=== PATIENT | female | born 1945 | race Caucasian/White ===

== ENCOUNTER 2020-04-06 12:51 | Outpatient (CLI) | payer MEDICARE, BC, SELFPAY ==
[2020-04-06 13:15] VITALS: PULSE 76; O2SAT 87
[2020-04-06 13:17] VITALS: O2SAT 93
[2020-04-06 13:20] VITALS: PULSE 116; O2SAT 85
[2020-04-06 13:22] VITALS: PULSE 110; O2SAT 87
[2020-04-06 13:26] VITALS: PULSE 122; O2SAT 90
[2020-04-06 13:35] VITALS: PULSE 76; O2SAT 93
--- NOTE | 2020-04-06 14:47 | HOMEO2EVAL ---
Home Oxygen Evaluation RC: Home Oxygen (O2) Evaluation Start: 04/06/20 14:42 Freq: Status: Active Protocol: RPE Activity Type Activity Date Activity User E-Sign Co-Sign Detail Recorded Client Recorded Date Recorded By Document 04/06/20 13:15 CASI [email or web address] 04/06/20 14:47 CASI Document 04/06/20 13:17 CASI [email or web address] 04/06/20 14:47 CASI Document 04/06/20 13:20 CASI [email or web address] 04/06/20 14:47 CASI Document 04/06/20 13:22 CASI [email or web address] 04/06/20 14:47 CASI Document 04/06/20 13:26 CASI [email or web address] 04/06/20 14:47 CASI Document 04/06/20 13:35 [email or web address] [email or web address] 04/06/20 14:47 CASI 04/06/20 04/06/20 04/06/20 13:15 13:17 13:20 Home O2 Evaluation Test Phase Resting Resting Exercise Oxygen Delivery Room Air Nasal Cannula Nasal Cannula Oxygen Flow Rate (L/min) 1 1 Pulse Oximetry (90-100 %) 87 L 93 85 L Pulse Rate (60-100 beats/min) 76 116 H Ambulation Distance (feet) Home Oxygen Evaluation Comments Treatment Charges O2 Evaluation 04/06/20 04/06/20 04/06/20 13:22 13:26 13:35 Home O2 Evaluation Test Phase Exercise Exercise Resting Oxygen Delivery Nasal Cannula Nasal Cannula Nasal Cannula Oxygen Flow Rate (L/min) 2 3 1 Pulse Oximetry (90-100 %) 87 L 90 93 Pulse Rate (60-100 beats/min) 110 H 122 H 76 Ambulation Distance (feet) 550 Home Oxygen Evaluation Comments PT REQUIRES 1 L AT REST AND 3 L WITH EXERTION . PT WALKED FOR 6 MINUTES. Treatment Charges
--- NOTE | 2020-04-15 15:42 | WPDPFTINT ---
PFT Interpretation PFT Interpretation: DOS: 04/06/2020 REQUESTING: Elsie Powell NP REASON FOR TESTING: COPD PULMONARY FUNCTION TESTS Spirometry: FEV1 is 46%, severely decreased, 0.88 L. FVC is decreased 75% predicted. The FEV1% is decreased. DMW68-02% is extremely decreased at 14% predicted. There is a 17% increase in FEV1 which is less than 200 ml. By ATS standards this is not considered to be statistically significant. There is a 53% increase in OTM56-63% which is greater than 200 ml. Lung volumes: total lung capacity 122% mild hyperinflation. RV 184% severe air trapping. increased airway resistance. Diffusion: DLCO 42% moderately decreased Flow volume loop: Scooping of the expiratory limb consistent with obstruction IMPRESSION: Extremely severe obstructive ventilatory impairment which is even worse in the small airways, mild hyperinflation, severe air trapping with s moderately severe diffusion impairment. This pattern suggests COPD asthma overlap. There is a significant response to bronchodilator in the small airways. Malika Thomas MD
== END 2020-04-06 12:52 | disposition home or self-care (01) ==
LOC: ANHPFT 12:54
PROVIDERS: PCP Internal Medicine; Visit Provider Nurse Practitioner
DX: J44.9 Chronic obstructive pulmonary disease, unspecified (principal)
CPT/HCPCS: 94060; 94618; 94726; 94729

== ENCOUNTER 2022-03-15 11:42 | Outpatient (CLI) | payer MEDICARE, BC, SELFPAY ==
--- NOTE | ~2022-03-15 | PE_ITS ---
EXAMINATION: PET skull to mid thigh DATE: 03/15/2022 13:56 INDICATION: Solitary pulmonary nodule TECHNIQUE: Blood glucose level was 94 mg/dL. 10.832 mCi of 18-fluorodeoxyglucose (18-FDG) was adminis tered i.v. Low dose computed tomography (CT) images were acquired from the base of the brain to the p roximal thighs for attenuation correction and anatomic localization. Positron emission tomography (PE T) images were acquired in the same distribution beginning 65 minutes after injection. The dose-lengt h product (DLP) was 1050.42 mGy-cm. COMPARISON: None FINDINGS: Head/neck: No abnormal FDG uptake is identified. Chest: No abnormal FDG uptake is identified. There is mild emphysema. There is a 5 mm nodule in the r ight lung apex without associated FDG uptake which could be due to small size. There is mild atelecta sis of the lingula. No pleural effusion or pneumothorax. No pathologically enlarged thoracic lymph no paul are identified. The heart size is normal. Calcified coronary artery atherosclerosis is noted. Isai cified pulmonary nodules and calcified bilateral hilar and mediastinal lymph nodes are consistent wit h old granulomatous disease. Abdomen/pelvis/proximal thighs: No abnormal FDG uptake is identified. Physiologic FDG activity is pre sent in the bowel and urinary tract. Stones are present in the gallbladder which is mildly distended. The liver, spleen, pancreas, and adrenal glands are normal. The kidneys are unremarkable. No patholo gically enlarged abdominal or pelvic lymph nodes are identified. There is no free intraperitoneal gas or evidence of bowel obstruction. There is calcified atherosclerosis of the aorta and many of the ot her arteries. Colonic diverticulosis is present without evidence of diverticulitis. Musculoskeletal: No abnormal FDG uptake is identified. IMPRESSION: 1. 5 mm nodule of the right lung apex without associated FDG uptake which could possibly be due to sm all size. No FDG avid pulmonary nodules identified. 2. Mild emphysema. 3. Cholelithiasis. Reviewed, dictated and finalized at location B. IMPRESSION: 1. 5 mm nodule of the right lung apex without associated FDG uptake which could possibly be due to small size. No FDG avid pulmonary nodules identified. 2. Mild emphysema. 3. Cholelithiasis.
[2022-03-15 12:18] LABS: Glucose Point of Care 94 mg/dl (65-105)
== END 2022-03-15 11:43 | disposition home or self-care (01) ==
PROVIDERS: PCP Internal Medicine; Visit Provider Nurse Practitioner
DX: R91.1 Solitary pulmonary nodule (principal); J43.9 Emphysema, unspecified; K80.20 Calculus of gallbladder without cholecystitis without obstruction
CPT/HCPCS: 78815; A9552

== ENCOUNTER 2023-04-09 09:47 | Emergency (ER) | payer MEDICARE, BC, SELFPAY ==
--- NOTE | ~2023-04-09 | CT_ITS ---
EXAMINATION: CT abdomen pelvis w con INDICATION: Right-sided abdominal pain TECHNIQUE: Computed tomographic images of the abdomen and pelvis were obtained after the administrati on of 100 cc of Omnipaque 350 intravenous contrast. The dose-length product (DLP) was 755.60 mGy-cm. Automated exposure control and iterative reconstruction technique were employed. COMPARISON: None available FINDINGS: There is moderate emphysema of the visualized lung bases. There is mild dependent atelectas is. The heart size is normal. Punctate calcifications in an otherwise normal spleen likely represent healed granulomatous disease. The liver, pancreas, and adrenal glands are normal. A stone is present in the gallbladder which is mildly distended. No pericholecystic inflammatory change is seen. Hypoatt enuating lesions in the kidneys, measuring up to 4 mm on the right, are too small to characterize but likely represent cysts. There is calcified atherosclerosis of the aorta and many of the other arteri es. No pathologically enlarged abdominal or pelvic lymph nodes are identified. There is colonic diver ticulosis. There is inflammation of a diverticulum of the sigmoid colon with surrounding edematous st randing of the perisigmoid fat. No perforation or abscess are identified. No free intraperitoneal gas or evidence of bowel obstruction. There is moderate lumbar spondylosis. IMPRESSION: 1. Uncomplicated sigmoid diverticulitis. 2. Cholelithiasis and mild gallbladder distention without additional findings of cholecystitis. Reviewed, dictated and finalized at location F. IMPRESSION: 1. Uncomplicated sigmoid diverticulitis. 2. Cholelithiasis and mild gallbladder distention without additional findings o f cholecystitis.
[2023-04-09 09:51] VITALS: BP 157/82; PULSE 90; RESP 23; TEMP 37.3; O2SAT 96
[2023-04-09 10:00] VITALS: BP 149/71; PULSE 97; RESP 18; O2SAT 96
--- NOTE | 2023-04-09 10:02 | ED.GENADULT ---
HPI - General Adult General Chief complaint: Abdominal Pain Stated complaint: abd pain Time Seen by Provider: 04/09/23 09:49 Source: patient Mode of arrival: ambulatory Limitations: no limitations History of Present Illness HPI narrative: This is a 78-year-old female who presents to the ED with chief complaint of abdominal pain beginning 2 days ago. Reports pain is in the suprapubic abdomen and radiates bilaterally across. Reports occasional right upper quadrant pain as well. Reports intermittent loose stools but this is baseline for her. Denies obstipation. Denies fevers, chills, chest pain, shortness of breath, cough, nausea, vomiting, problems with urination. Denies GI bleeding symptoms. Reports abdominal surgical history of hysterectomy. Related Data Allergies Allergy/AdvReac Type Severity Reaction Status Date / Time diphenhydramine Allergy Hives Verified 04/09/23 09:51 Penicillins Allergy Hives Verified 04/09/23 09:51 Sulfa (Sulfonamide Allergy Unknown Verified 04/09/23 09:51 Antibiotics) tetanus and diphtheria Allergy Unknown Verified 04/09/23 09:51 toxoids Review of Systems Review of Systems: All systems as dictated in HPI Exam Narrative: GENERAL: Well-appearing, well-nourished, and in no acute distress. HEAD: Normocephalic, atraumatic. EYES: PERRLA and EOMI. ENT: Nares clear, no rhinorrhea or epistaxis. Mucous membranes moist. Oropharynx without tonsillar hypertrophy exudate or other lesions. NECK: Supple. No adenopathy or masses. CHEST: No respiratory distress. Clear to auscultation. No wheezes rales or rhonchi HEART: Regular rate and rhythm. No murmur heard. Normal peripheral pulses. ABDOMEN: Right upper quadrant tenderness to palpation. Tenderness throughout the right lower, suprapubic, left lower quadrant. Soft, nondistended, normal active bowel sounds. Negative peritoneal signs. Negative McBurney's point and equivocal Robles sign. MSK: Normal range of motion. No edema. SKIN: Warm, dry, no rash. NEURO: Alert and oriented x3. No focal deficits. PSYCH: Normal mood and affect. Course Course Emergency Course: Reevaluation 1137: Patient feeling much better. She would like to go home. Vital Signs Vital signs: Vital Signs Temperature 99.2 F 04/09/23 09:51 Pulse Rate 90 10/01/23 09:51 Respiratory Rate 23 H 04/09/23 09:51 Blood Pressure 157/82 H 04/09/23 09:51 Pulse Oximetry 96 04/09/23 09:51 Oxygen Delivery Nasal Cannula 04/09/23 09:51 Oxygen Flow Rate 3 04/09/23 09:51 Temperature 99.2 F 04/09/23 09:51 Pulse Rate 92 04/09/23 14:26 Respiratory Rate 20 04/09/23 14:26 Blood Pressure 142/58 H 04/09/23 14:26 Pulse Oximetry 99 04/09/23 14:26 Oxygen Delivery Nasal Cannula 04/09/23 09:51 Oxygen Flow Rate 3 04/09/23 09:51 Medical Decision Making MDM Narrative Medical decision making narrative: This is a 78-year-old female who presents to the ED with chief complaint of lower abdominal pain beginning 2 days ago. Vitals show slightly elevated temperature at 99.2 but otherwise normal. Exam reveals lower abdominal tenderness, most concentrated in the suprapubic and right lower quadrant. Lab work including CBC, CMP and UA are all unremarkable. CT abdomen pelvis with contrast: 1. Uncomplicated sigmoid diverticulitis. 2. Cholelithiasis and mild gallbladder distention without additional findings of cholecystitis.. She is aware of this seemingly chronic gallbladder distention. She feels much improved with 2 mg of morphine here in the emergency department. She would like to go home. Patient was given antibiotics here in the department. Prescriptions for [place], Cipro, Flagyl for home. Pt will be discharged in stable condition. Strict return precautions given and supportive measures discussed. Pt is understanding and agreeable with plan for discharge and follow-up with PCP. Vital Signs Vital Signs: Vital Signs Temperature 99.2 F
[2023-04-09 10:11] LABS: Basophils Percent Auto 0.1 % (0.2-1.2); Eosinophils Percent Auto 0.3 % (0-4.4); Hematocrit 36.2 % (37.0-47.0); Hemoglobin 11.2 g/dL (12.0-15.0); Immature Granulocyte Absolute 0.05 K/mm3 (0.00-0.031); Immature Granulocyte Percent A 0.5 % (0-0.5); Lymphocytes Absolute Auto 0.95 K/mm3 (0.9-3.2); Lymphocytes Percent Auto 9.9 % (18.3-44.2); Mean Corpuscular HGB Conc 30.9 g/dl (32-36); Mean Corpuscular Hemoglobin 29.9 pg (26-34); Mean Corpuscular Volume 96.8 fl (80-100); Mean Platelet Volume 8.9 fl (7.4-10.4); Monocytes Absolute Auto 0.7 K/mm3 (0.1-0.6); Monocytes Percent Auto 7.2 % (2.6-8.5); Neutrophils Absolute Auto 7.9 K/mm3 (1.3-6.7); Platelet Count Result 192 k/mm3 (150-375); Red Blood Count 3.74 M/mm3 (4.2-5.4); Red Cell Distribution Width 13.2 % (11.5-14.5); White Blood Count 9.6 K/mm3 (4.5-10.0)
[2023-04-09 10:21] LABS: Lactic Acid Reflex 1.2 mmol/L (0.7-2.0)
[2023-04-09 10:22] LABS: Alanine Aminotransferase 18 U/L (6-35); Alkaline Phosphatase 84 U/L (38-126); Anion Gap 6 mmol/L (8-16); Aspartate Amino Transferase 22 U/L (14-36); Bilirubin,Total 0.8 mg/dL (0.2-1.3); Blood Urea Nitrogen 9 mg/dL (7-17); Calcium 8.8 mg/dL (8.4-10.2); Carbon Dioxide 31 mmol/L (22-30); Chloride 97 mmol/L (98-107); Estimated CRCL calculation 63 ml/min; Estimated Glomerular Filt Rate > 60; Glucose 114 mg/dL (65-110); Lipase 48 U/L (23-300); Sodium 134 mmol/L (137-145)
[2023-04-09] MEDS: MORPHINE SULFATE (*CRX) 4 MG/ML INJ IV PUSH (10:23)
[2023-04-09 10:25] LABS: INR 1.2; Prothrombin Time 16.1 Seconds (11.1-14.7)
[2023-04-09 10:26] LABS: Partial Thromboplastin Time 38.9 SECONDS (22.3-36.8)
[2023-04-09 10:30] VITALS: BP 155/58; PULSE 85; RESP 18; O2SAT 95
[2023-04-09 11:13] VITALS: BP 145/56; PULSE 86; RESP 22; O2SAT 99
[2023-04-09 11:14] LABS: Appearance Urine Clear (Clear); Bilirubin Urine Negative (Negative); Blood Urine Negative (Negative); Color Urine Yellow (Yellow); Glucose Urine UA Negative (Negative); Ketones Urine Negative (Negative); Leukocyte Esterase Ur Negative LEU/UL (Negative); Nitrate Urine Negative (Negative); Protein Urine Negative (Negative); Specific Grav Ur 1.009 (1.001-1.035); Urobilinogen Urine 0.2 mg/dL (<2.0)
[2023-04-09 11:19] LABS: Add Urine Microscopic? NO
[2023-04-09 11:55] VITALS: BP 131/65; PULSE 85; RESP 21; O2SAT 99
[2023-04-09] MEDS: metroNIDAZOLE 500 MG/ISO 100ML 500 MG/100 ML BAG 100 MG IVPB (11:55)
[2023-04-09] MEDS: levoFLOXacin 750 MG/D5W 150 ML 750 MG/150 ML BAG 100 MG IVPB (12:57)
[2023-04-09 14:26] VITALS: BP 142/58; PULSE 92; RESP 20; O2SAT 99
== END 2023-04-09 14:28 | disposition home or self-care (01) ==
PROVIDERS: Emergency Provider Physician Assistant
DX: K57.32 Diverticulitis of large intestine without perforation or abscess without bleeding (principal)
CPT/HCPCS: 36415; 74177; 80048; 80076; 81003; 83605; 83690; 85025; 85610; 85730; 96365; 96367; 96375; 99284; J1836; J1956; J2270; Q9967

== ENCOUNTER 2024-06-21 10:23 | Inpatient (IN) | payer MEDICARE, BC, SELFPAY ==
[2024-06-21] VITALS (20 sets, daily range): BP systolic 118–154; BP diastolic 52–96; PULSE 77–104; RESP 16–24; TEMP 36–37; O2SAT 89–100; BMI 36.1
--- NOTE | ~2024-06-21 | US_ITS ---
EXAMINATION: US venous doppler UE DATE: 06/25/2024 21:53 INDICATION: Left upper limb swelling. TECHNIQUE: Grayscale ultrasound images without and with compression and Doppler ultrasound images of the left upper extremity veins were obtained. COMPARISON: None. FINDINGS: The visualized portions of the left internal jugular vein, subclavian vein, axillary vein, brachial v eins, basilic vein, cephalic vein, radial vein, and ulnar vein are patent. IMPRESSION: 1. No deep venous thrombosis. Reviewed, dictated and finalized at location A. CULTURAL AND FORESTRY SUPERVISOR
--- NOTE | ~2024-06-21 | XR_ITS ---
XR chest 1V portable 06/21/2024 10:52 Indication: Dyspnea Procedure: AP portable chest Comparison: No prior studies for comparison. Findings: Heart size normal. Left basilar atelectasis. Calcified granuloma right mid thorax. No focal pneumonia, edema, pleural effusion or pneumothorax. Impression: 1: Subsegmental left basilar atelectasis. Reviewed, dictated and finalized at location B. DCARE ADMINISTRATOR Impression: 1: Subsegmental left basilar atelectasis.
--- NOTE | 2024-06-21 10:29 | ECG_ITS ---
Test Date: 2024-06-21 10:39:48 Measurements Intervals Joaquin Rate: 82 P: 89 CA: 137 QRS: 40 QRSD: 78 T: 47 QT: 377 QTc: 442 Interpretive Statements SINUS RHYTHM No previous ECG available for comparison Electronically Signed On 06-21-2024 18:43:04 [employer]ARMACEUTICAL SCIENTIST by Loida Wilder M.D.
[2024-06-21] MEDS: ALBUTEROL SULFATE NEB 2.5 MG/3 ML INH 15 MG INHALATION (10:40)
[2024-06-21] MEDS: IPRATROPIUM BR 0.02% INH SOLN 0.5 MG/2.5 ML VIAL 1 MG INHALATION (10:41)
[2024-06-21] MEDS: methylPREDNISolone SOD SUCC 125 MG VIAL 80 MG IV PUSH (10:44)
[2024-06-21 10:53] LABS: Basophils Percent Auto 0.5 % (0.2-1.2); Eosinophils Absolute Auto 0.2 K/mm3 (0-0.3); Eosinophils Percent Auto 2.2 % (0-4.4); Hematocrit 35.7 % (37.0-47.0); Hemoglobin 10.7 g/dL (12.0-15.0); Immature Granulocyte Absolute 0.03 K/mm3 (0.00-0.031); Immature Granulocyte Percent A 0.4 % (0-0.5); Lymphocytes Absolute Auto 0.63 K/mm3 (0.9-3.2); Mean Corpuscular Hemoglobin 29.2 pg (26-34); Mean Corpuscular Volume 97.5 fl (80-100); Mean Platelet Volume 9.5 fl (7.4-10.4); Monocytes Absolute Auto 0.4 K/mm3 (0.1-0.6); Monocytes Percent Auto 5.3 % (2.6-8.5); Neutrophils Absolute Auto 6.6 K/mm3 (1.3-6.7); Neutrophils Percent Auto 83.6 % (45.5-73.1); Platelet Count Result 218 k/mm3 (150-375); Red Blood Count 3.66 M/mm3 (4.2-5.4); Red Cell Distribution Width 13.6 % (11.5-14.5); White Blood Count 7.9 K/mm3 (4.5-10.0)
[2024-06-21 11:22] LABS: Alanine Aminotransferase 12 U/L (6-35); Albumin Level 3.6 g/dL (3.5-5.1); Alkaline Phosphatase 86 U/L (38-126); Aspartate Amino Transferase 21 U/L (14-36); Bilirubin,Total 0.5 mg/dL (0.2-1.3); Blood Urea Nitrogen 20 mg/dL (7-17); Calcium 9.5 mg/dL (8.4-10.2); Carbon Dioxide > 40 mmol/L (22-30); Chloride 85 mmol/L (98-107); Estimated CRCL calculation 38 ml/min; Estimated Glomerular Filt Rate 48; Glucose 121 mg/dL (65-110); Potassium 3.7 mmol/L (3.4-5.0); Sodium 135 mmol/L (137-145)
--- NOTE | 2024-06-21 12:39 | P.HP_ITS ---
H&P: HPI History of Present Illness Date/Time: 06/21/24 12:39 Chief Complaint: Weakness, Hypoxia Narrative: 79 y/o F presents here with weakness, back pain, and hypoxia with PMH of COPD, AFib, hypertension, GERD, chronic diarrhea, arthritis, depression. The patient presents here from her PCP office via EMS for further evaluation of multiple medical complaints. The patient presented there for her regular check up. While at appt she reported that she felt short of breath, dizzy and nauseated. Shortness of breath is chronic, has worsened in the last 2-3 days. Has chronic dry cough with no increased sputum production. Denies any associated fever, chills, or body aches. Dizziness started 2-3 days ago as well. Only occurs when she stands up. Dizziness is further described as more of an unsteadiness vs the patient having a spinning sensation or the room spinning. Denies associated focal weakness, focal numbness, changes in speech, vision changes, or headache. Nausea started 2-3 days ago as well. No accompanying vomiting, abdominal pain, dysuria, or urinary frequency. Nausea has largely resolved. Denies any recent abx use in the last 3 months. Patient was directed to the emergency department when she was found to be satting at 80% on 2L NC. Baseline O2 requirement is 2L NC at all times. EMS was called, while being transported to the hospital she received a DuoNeb and her nasal cannula was increased to 4L. She arrived 95% on 2L NC. Patient arrived diminished with audible wheezing per ED provider. Patient has hx of COPD and is a former smoker. Initial VS at presentation: 98.6? F, HR 77, RR 22, 126/60, and 95% on 2L NC. ED workup showed: No leukocytosis, hemoglobin 10.7 (previously 11.2 on 04/09/23), creatinine 1.1 and GFR 48 (previously 0.7 and GFR >60), glucose 121. CXR showed subsegmental left basilar atelectasis. EKG showed sinus rhythm, rate 82. Review of Systems Review of Systems: All systems reviewed & are unremarkable except as noted in HPI and below PMFSH Past Medical History Medical History Depression Arthritis Chronic diarrhea GERD (gastroesophageal reflux disease) Hypertension Atrial fibrillation COPD (chronic obstructive pulmonary disease) Surgical History Surgical History History of hysterectomy History of tonsillectomy Social History Social History Smoking status: Never smoker Alcohol intake: never Substance use: never Do You Feel Safe in your Home?: Yes Lack of Transportation: No Lack of Food: Never True Current Housing: I Have Housing Concerned About Future Housing: No Difficulty Paying Gas/Electric Bills: No Difficulty Paying for Meds: No Currently Unemployed: No Education: Decline to Answer Difficulty w/ Childcare or Family Care: No Spiritual care concerns: No Meds Home Medications and Allergies Home Medications ?Medication ?Instructions ?Recorded ?Confirmed ?Type acetaminophen 500 mg tablet (Pain 1,000 mg PO Q12H 06/21/24 06/21/24 History Reliever Extra Strength (acetaminophen)) albuterol sulfate 2.5 mg/3 mL 2.5 mg inhalation DAILY 06/21/24 06/21/24 History (0.083 %) solution for nebulization apixaban 5 mg tablet (Eliquis) 5 mg PO BID 06/21/24 06/21/24 History atorvastatin 40 mg tablet 40 mg PO DAILY 06/21/24 06/21/24 History budesonide 160 mcg-glycopyr 9 1 inh inhalation DAILY 06/21/24 06/21/24 History mcg-formot 4.8 mcg/actuation HFA inhaler (Breztri Aerosphere) chlorthalidone 25 mg tablet 25 mg PO DAILY 06/21/24 06/21/24 History diltiazem HCl 240 mg 240 mg PO DAILY 06/21/24 06/21/24 History capsule,extended release 24 hr escitalopram oxalate 20 mg tablet 20 mg PO DAILY 06/21/24 06/21/24 History losartan 50 mg tablet 50 mg PO DAILY 06/21/24 06/21/24 History montelukast 10 mg tablet 10 mg PO QPM 06/21/24 06/21/24 History pantoprazole 40 mg tablet,delayed 40 mg PO Q12H 06/21/24 06/21/24 History release Allergies Allergy/AdvReac Type Severity Reaction Status Date / Time diphenhydramine Allergy Hives Verified 04/09/23 09:51 Penicillins Allergy Hives Verified 04/09/23 09:51 Sulfa (Sulfonamide Allergy Unknown Verified 04/09/23 09:51 Antibiotics) tetanus and diphtheria Allergy Unknown Verified 04/09/23 09:51 toxoids Vital Signs Vital Signs - 24 hr 06/21/24 10:22 06/21/24 10:45 06/21/24 10:46 Temperature 98.6 F Pulse Rate 77 77 Respiratory Rate 22 H 20 Blood Pressure 126/60 Pulse Oximetry 95 94 Oxygen Delivery Nasal Cannula Nasal Cannula Oxygen Flow Rate 2 2 06/21/24 11:03 06/21/24 11:04 Temperature Pulse Rate 104 H Respiratory Rate Blood Pressure Pulse Oximetry 94 Oxygen Delivery Nasal Cannula Oxygen Flow Rate 2 Exam Const: General: comfortable and no acute distress Other: , female, nontoxic appearance HENMT: Face/Nose/Sinus: Normal nares present Mouth: Yes moist mucous membra patrick Eyes: General: appearance normal, both eyes and all related structures Sclera: sclerae normal Pupils: Equal, round and reactive pupils present EOM: EOMs intact bilaterally Resp: Other: Patient diminished in all lung wheeler, faint expiratory wheeze. Mild work of breathing without tachypnea. Cardio: Rate: regular rate Rhythm: regular rhythm Other: S1-S2 present without murmur, rub, ectopy GI: Other: Abdomen soft, nondistended, nontender. Skin: General skin exam: normal color and no rashes or lesions noted Wounds: no wounds Neuro: Speech: normal speech Motor exam (neuro): 5/5 motor strength present throughout Sensory Exam: normal sensation Other: A&O x4 Extrem: General: normal to inspection Psych: Mental Status: mental status grossly normal Affect: normal affect Other: Good insight and judgment, pleasant H&P: Results Labs Labs: Short CBC 06/21/24 Range/Units 10:46 WBC 7.9 (4.5-10.0) K/mm3 Hgb 10.7 L (12.0-15.0) g/dL Hct 35.7 L (37.0-47.0) % Plt Count 218 (150-375) k/mm3 [facility] 06/21/24 10:46 Sodium 135 L Potassium 3.7 Chloride 85 L Carbon Dioxide > 40 H BUN 20 H D Creatinine 1.10 H Glucose 121 H Calcium 9.5 Liver Function 06/21/24 Range/Units 10:46 Total Bilirubin 0.5 (0.2-1.3) mg/dL AST 21 (14-36) U/L ALT 12 (6-35) U/L Alkaline Phosphatase 86 (38-126) U/L Albumin 3.6 (3.5-5.1) g/dL Assessment and Plan Assessment and plan (1) COPD exacerbation: Code(s): J44.1 - Chronic obstructive pulmonary disease with (acute) exacerbation Status: Acute Assessment and Plan: - CXR: subsegmental left basilar atelectasis. - EKG, initial: sinus rhythm, rate 82. No previous EKG available for comparison. Awaiting formal read. - ABG, initial: pH 7.407, pCO2 76.9, pO2 60.3, HCO3 47.3, O2 sat 89.9 % on 2L NC initiation of AVAPS, patient initially refused and now amenable tonight repeat ABG in a.m. - initiate scheduled DuoNebs - steroid course - started on abx: Levaquin on 06/21 - sputum culture - new requirement. continue supplemental O2 to maintain sat above 92%, wean as tolerated. (2) ADEEL (acute kidney injury): Code(s): N17.9 - Acute kidney failure, unspecified Status: Acute Assessment and Plan: - creatinine 1.1 and GFR 48, previously 0.7 and GFR >60 on 04/09/2023 - IV fluids: 100 mL/hour - add CK, urine sodium, protein/creatinine, urea, and UA - if no improvement with resolution of hypoxia and IV fluids, consider consultation to nephrology - trend renal function Plan Diet: Regular GI Prophylaxis: Not currently indicated DVT Prophylaxis: SCDs, continue home Eliquis Lines: Peripheral Code Status: Full code Quality VTE Prophylaxis VTE prophylaxis: mechanical ordered and pharmacologic ordered Hospitalist MIPS Advance Care Plan I have confirmed that the patient's Advanced Care Plan is present, code status is documented, or surrogate decision maker is listed in patient medical record.: Yes Medication Reconciliation I have utilized all available resources to obtain, update and review the patients current medications (includes all prescriptions, OTC, herbals, cannabis, and nutritional supplements).: Yes
--- OUTSIDE RECORDS SUMMARY | 2024-06-21 12:43 | XMS_ITS | Data Portability ---
Author Organization [facility] Vincent Fontenot Address [address] [place] [address] Care Team Providers Care Student Assistant Name Role Phone HYUN PAULSON Primary Care Provider Assessment Encounter Date Assessment Date Assessment LastModified by Organization Details LastModified Time 11/01/2023 11/01/2023 Diagnosis and assessment plan of been discussed medicines will be continued labs will be ordered old records will be requested so that we can verify screenings and immunizations follow-up with me in 4 months [email or web address] Not available 11/12/2023 18:15:20 03/06/2024 03/06/2024 caloric restriction through healthy lifestyle care instructions blood work for biochemical management of disease processes and medications can use a little Tylenol for pain and we will x-ray her lumbar spine we will not titrate any medications today as she recently was added chlorthalidone and we will see how that does over the ensuing weeks for blood pressure control she will see me back in about 3 months she will get flu and COVID vaccinations when appropriate and I have asked her to consider RSV given her serious lung disease [email or web address] Not available 03/16/2024 16:09:02 Plan of Treatment Reminders Order Date Submit Date Provider Last Modified By Organization Details Last Modified Time Details Appointments ANY 15 2023 09:15A Amrik Paulson MD Not available Not available Not available Lab lipid panel, serum 2023 024 [facility], [address], [address], [place], [address], 11/15/2023 07:15:25 CBC w/ auto diff 2023 024 [facility], [address], [address], [place], [address], 11/15/2023 07:15:26 CMP, serum or plasma 2023 024 [facility], [address], [address], [place], [address], 11/15/2023 07:15:25 lipid panel, serum 2023 024 [facility], [address], [address], [place], [address], 03/07/2024 09:39:10 CMP, serum or plasma 2023 024 [facility], [address], [address], [place], [address], 03/07/2024 09:39:11 CBC w/ auto diff 2023 024 [facility], [address], [address], [place], [address], 03/07/2024 09:39:13 urinalysi s, microscop ic 2023 024 [facility], [address], [address], [place], [address], 03/07/2024 09:39:12 Referral None recorded. Procedures None recorded. Surgeries None recorded. Imaging XR, lumbar spine 2023 024 [facility] (Radiology), [address] [place] [address], [address], 03/06/2024 14:42:17 Medication Orders None recorded. Patient TargetsNo targets recorded. Patient Instructions Encounter Date Encounter Id Patient Instructions Last Modified By Organization Details Last Modified Time 03/06/2024 [id number] A healthy lifestyle: care instructions [email or web address] Not available 03/06/2024 12:59:58 Reason for Referral None Reported. Results Created Date Observation Date Name Description Value Unit Range Abnormal Flag Note LastModifiedBy Organization Detail LastModifiedTime 11/14/19 24 11/15/2023 LIPID PANEL cholesterol, total 150 mg/dL 100-19 9 Not Available [facility] ([facility]) [address] [place], [address], 11/15/2023 07:15:25 11/14/19 24 11/15/2023 LIPID PANEL triglyceride s 81 mg/dL 0-149 Not Available [facility] ([facility]) [address] [place], [address], 11/15/2023 07:15:25 11/14/19 24 11/15/2023 LIPID PANEL HDL cholesterol 71 mg/dL >39 Not Available [facility] ([facility]) [address] [place], [address], 11/15/2023 07:15:25 11/14/19 24 11/15/2023 LIPID PANEL VLDL cholesterol patricia 15 mg/dL 5-40 Not Available [facility] ([facility]) [address] [place], [address], 11/15/2023 07:15:25 11/14/19 24 11/15/2023 LIPID PANEL LDL chol calc ([facility]) 64 mg/dL 0-99 Not Available [facility] ([facility]) [address] [place], [address], 11/15/2023 07:15:25 11/14/19 24 11/15/2023 COMP. METAB OLIC PANEL (14) glucose 97 mg/dL 70-99 Not Available [facility] ([facility]) [address] [place], [address], 11/15/2023 07:15:25 11/14/19 24 11/15/2023 COMP. METAB OLIC PANEL (14) BUN 6 mg/dL 8-27 below low normal Not Available [facility] ([facility]) [address] [place], [address], 11/15/2023 07:15:25 11/14/19 24 11/15/2023 COMP. METAB OLIC PANEL (14) creatinine 0.91 mg/dL 0.57-1 .00 Not Available [facility] ([facility]) [address] [place], [address], 11/15/2023 07:15:25 11/14/19 24 11/15/2023 COMP. METAB OLIC PANEL (14) eGFR 65 mL/mi n/1.7 3 >59 Not Available [facility] ([facility]) [address] [place], [address], 11/15/2023 07:15:25 11/14/19 24 11/15/2023 COMP. METAB OLIC PANEL (14) BUN/creatini ne ratio 7 12-28 below low normal Not Available [facility] ([facility]) [address] [place], [address], 11/15/2023 07:15:25 11/14/19 24 11/15/2023 COMP. METAB OLIC PANEL (14) sodium 142 mmol/ L 134-14 4 Not Available [facility] ([facility]) [address] [facility], [address], 11/15/2023 07:15:25 11/14/19 24 11/15/2023 COMP. METAB OLIC PANEL (14) potassium 4.7 mmol/ L 3.5-5. 2 Not Available [facility] ([facility]) [address] [place], [address], 11/15/2023 07:15:25 11/14/19 24 11/15/2023 COMP. METAB OLIC PANEL (14) chloride 100 mmol/ L 96-106 Not Available [facility] ([facility]) [address] [facility], [place], [address], 11/15/2023 07:15:25 11/14/19 24 11/15/2023 COMP. METAB OLIC PANEL (14) carbon dioxide, total 30 mmol/ L 20-29 above high normal Not Available [facility] ([facility]) [address] [place], [address], 11/15/2023 07:15:25 11/14/19 24 11/15/2023 COMP. METAB OLIC PANEL (14) calcium 9.3 mg/dL 8.7-10 .3 Not Available [facility] ([facility]) [address] [place], [address], 11/15/2023 07:15:25 11/14/19 24 11/15/2023 COMP. METAB OLIC PANEL (14) protein, total 6.2 g/dL 6.0-8. 5 Not Available [facility] ([facility]) [address] [place], [address], 11/15/2023 07:15:25 11/14/19 24 11/15/2023 COMP. METAB OLIC PANEL (14) albumin 4.0 g/dL 3.8-4. 8 Not Available [facility] ([facility]) [address] [place], [address], 11/15/2023 07:15:25 11/14/19 24 11/15/2023 COMP. METAB OLIC PANEL (14) globulin, total 2.2 g/dL 1.5-4. 5 Not Available [facility] ([facility]) [address] [place], [address], 11/15/2023 07:15:25 11/14/19 24 11/15/2023 COMP. METAB OLIC PANEL (14) A/G ratio 1.8 1.2-2. 2 Not Available [facility] ([facility]) [address] [place], [address], 11/15/2023 07:15:25 11/14/19 24 11/15/2023 COMP. METAB OLIC PANEL (14) bilirubin, total 0.3 mg/dL 0.0-1. 2 Not Available [facility] ([facility]) [address] [facility], [place], [address], 11/15/2023 07:15:25 11/14/19 24 11/15/2023 COMP. METAB OLIC PANEL (14) alkaline phosphatase 111 IU/L 44-121 Not Available [facility] ([facility]) [address] [facility], [place], [address], 11/15/2023 07:15:25 11/14/19 24 11/15/2023 COMP. METAB OLIC PANEL (14) AST (SGOT) 13 IU/L 0-40 Not Available [facility] ([facility]) [address] [facility], [place], [address], 11/15/2023 07:15:25 11/14/19 24 11/15/2023 COMP. METAB OLIC PANEL (14) ALT (SGPT) 9 IU/L 0-32 Not Available [facility] ([facility]) [address] [facility], [place], [address], 11/15/2023 07:15:25 11/14/19 24 11/15/2023 CBC WITH DIFFE RENTI AL/PL ATELE T WBC 5.0 x10e3 /uL 3.4-10 .8 Not Available [facility] ([facility]) [address] [facility], [place], [address], 11/15/2023 07:15:26 11/14/19 24 11/15/2023 CBC WITH DIFFE RENTI AL/PL ATELE T RBC 3.96 x10e6 /uL 3.77-5 .28 Not Available [facility] ([facility]) [address] [facility], [place], [address], 11/15/2023 07:15:26 11/14/19 24 11/15/2023 CBC WITH DIFFE RENTI AL/PL ATELE T hemoglobin 11.5 g/dL 11.1-1 5.9 Not Available [facility] ([facility]) [address] [facility], [place], [address], 11/15/2023 07:15:26 11/14/19 24 11/15/2023 CBC WITH DIFFE RENTI AL/PL ATELE T hematocrit 35.7 % 34.0-4 6.6 Not Available [facility] ([facility]) [address] [facility], [place], [address], 11/15/2023 07:15:26 11/14/19 24 11/15/2023 CBC WITH DIFFE RENTI AL/PL ATELE T MCV 90 fL 79-97 Not Available [facility] ([facility]) [address] [facility], [place], [address], 11/15/2023 07:15:26 11/14/19 24 11/15/2023 CBC WITH DIFFE RENTI AL/PL ATELE T MCH 29.0 pg 26.6-3 3.0 Not Available [facility] ([facility]) [address] [place], [address], 11/15/2023 07:15:26 11/14/19 24 11/15/2023 CBC WITH DIFFE RENTI AL/PL ATELE T MCHC 32.2 g/dL 31.5-3 5.7 Not Available [facility] ([facility]) [address] [place], [address], 11/15/2023 07:15:26 11/14/1911/15/2023 CBC WITH DIFFE RENTI AL/PL ATELE T RDW 12.9 % 11.7-1 5.4 Not Available [facility] ([facility]) [address] [place], [address], 11/15/2023 07:15:26 05/07/20 24 11/15/2023 CBC WITH DIFFE RENTI AL/PL ATELE T platelets 216 x10e3 /uL 150-45 0 Not Available [facility] ([facility]) [address] [facility], [place], [address], 11/15/2023 07:15:26 11/14/19 24 11/15/2023 CBC WITH DIFFE RENTI AL/PL ATELE T neutrophils 63 % notest ab. Not Available [facility] ([facility]) [address] [facility], [place], [address], 11/15/2023 07:15:26 11/14/19 24 11/15/2023 CBC WITH DIFFE RENTI AL/PL ATELE T lymphs 25 % notest ab. Not Available [facility] ([facility]) [address] [facility], [place], [address], 11/15/2023 07:15:26 11/14/19 24 11/15/2023 CBC WITH DIFFE RENTI AL/PL ATELE T monocytes 9 % notest ab. Not Available [facility] ([facility]) [address] [facility], [place], [address], 11/15/2023 07:15:26 11/14/19 24 11/15/2023 CBC WITH DIFFE RENTI AL/PL ATELE T eos 3 % notest ab. Not Available [facility] ([facility]) [address] [facility], [place], [address], 11/15/2023 07:15:26 11/14/19 24 11/15/2023 CBC WITH DIFFE RENTI AL/PL ATELE T basos 0 % notest ab. Not Available [facility] ([facility]) [address] [facility], [place], [address], 11/15/2023 07:15:26 11/14/19 24 11/15/2023 CBC WITH DIFFE RENTI AL/PL ATELE T neutrophils (absolute) 3.1 x10e3 /uL 1.4-7. 0 Not Available [facility] ([facility]) [address] [facility], [place], [address], 11/15/2023 07:15:26 11/14/19 24 11/15/2023 CBC WITH DIFFE RENTI AL/PL ATELE T lymphs (absolute) 1.3 x10e3 /uL 0.7-3. 1 Not Available [facility] ([facility]) [address] [facility], [place], [address], 11/15/2023 07:15:26 11/14/19 24 11/15/2023 CBC WITH DIFFE RENTI AL/PL ATELE T monocytes(ab solute) 0.5 x10e3 /uL 0.1-0. 9 Not Available [facility] ([facility]) [address] [facility], [place], [address], 11/15/2023 07:15:26 11/14/19 24 11/15/2023 CBC WITH DIFFE RENTI AL/PL ATELE T eos (absolute) 0.1 x10e3 /uL 0.0-0. 4 Not Available [facility] ([facility]) [address] [facility], [place], [address], 11/15/2023 07:15:26 11/14/19 24 11/15/2023 CBC WITH DIFFE RENTI AL/PL ATELE T baso (absolute) 0.0 x10e3 /uL 0.0-0. 2 Not Available [facility] ([facility]) [address] [place], [address], 11/15/2023 07:15:26 11/14/19 24 11/15/2023 CBC WITH DIFFE RENTI AL/PL ATELE T immature granulocytes 0 % notest ab. Not Available [facility] ([facility]) [address] [place], [address], 11/15/2023 07:15:26 11/14/19 24 11/15/2023 CBC WITH DIFFE RENTI AL/PL ATELE T immature grans (abs) 0.0 x10e3 /uL 0.0-0. 1 Not Available [facility] ([facility]) [address] [facility], [place], [address], 11/15/2023 07:15:26 03/06/20 24 03/07/2024 LIPID PANEL cholesterol, total 164 mg/dL 100-19 9 Not Available [facility] ([facility]) [address] [place], [address], 03/07/2024 09:39:10 03/06/20 24 03/07/2024 LIPID PANEL triglyceride s 144 mg/dL 0-149 Not Available [facility] ([facility]) [address] [place], [address], 03/07/2024 09:39:10 03/06/20 24 03/07/2024 LIPID PANEL HDL cholesterol 73 mg/dL >39 Not Available [facility] ([facility]) [address] [place], [address], 03/07/2024 09:39:10 03/06/20 24 03/07/2024 LIPID PANEL VLDL cholesterol patricia 24 mg/dL 5-40 Not Available [facility] ([facility]) [address] [place], [address], 03/07/2024 09:39:10 03/06/20 24 03/07/2024 LIPID PANEL LDL chol calc ([facility]) 67 mg/dL 0-99 Not Available [facility] ([facility]) [address] [place], [address], 03/07/2024 09:39:10 03/06/20 24 03/07/2024 COMP. METAB OLIC PANEL (14) glucose 93 mg/dL 70-99 Not Available [facility] ([facility]) [address] [place], [address], 03/07/2024 09:39:11 03/06/20 24 03/07/2024 COMP. METAB OLIC PANEL (14) BUN 14 mg/dL 8-27 Not Available [facility] ([facility]) [address] [facility] [place], [address], 03/07/2024 09:39:11 03/06/20 24 03/07/2024 COMP. METAB OLIC PANEL (14) creatinine 1.04 mg/dL 0.57-1 .00 above high normal Not Available [facility] ([facility]) [address] [facility] [place], [address], 03/07/2024 09:39:11 03/06/20 24 03/07/2024 COMP. METAB OLIC PANEL (14) eGFR 55 mL/mi n/1.7 3 >59 below low normal Not Available [facility] ([facility]) [address] [place] [place], [address], 03/07/2024 09:39:11 03/06/20 24 03/07/2024 COMP. METAB OLIC PANEL (14) BUN/creatini ne ratio 13 12-28 Not Available [facility] ([facility]) [address] [place], [address], 03/07/2024 09:39:11 03/06/20 24 03/07/2024 COMP. METAB OLIC PANEL (14) sodium 137 mmol/ L 134-14 4 Not Available [facility] ([facility]) [address] [place], [address], 03/07/2024 09:39:11 03/06/20 24 03/07/2024 COMP. METAB OLIC PANEL (14) potassium 4.6 mmol/ L 3.5-5. 2 Not Available [facility] ([facility]) [address] [place], [address], 03/07/2024 09:39:11 03/06/20 24 03/07/2024 COMP. METAB OLIC PANEL (14) chloride 94 mmol/ L 96-106 below low normal Not Available [facility] ([facility]) [address] [place], [address], 03/07/2024 09:39:11 03/06/20 24 03/07/2024 COMP. METAB OLIC PANEL (14) carbon dioxide, total 30 mmol/ L 20-29 above high normal Not Available [facility] ([facility]) [address] [place], [address], 03/07/2024 09:39:11 03/06/20 24 03/07/2024 COMP. METAB OLIC PANEL (14) calcium 9.6 mg/dL 8.7-10 .3 Not Available [facility] ([facility]) [address] [place], [address], 03/07/2024 09:39:11 03/06/20 24 03/07/2024 COMP. METAB OLIC PANEL (14) protein, total 6.4 g/dL 6.0-8. 5 Not Available [facility] ([facility]) [address] [place], [address], 03/07/2024 09:39:11 03/06/20 24 03/07/2024 COMP. METAB OLIC PANEL (14) albumin 4.1 g/dL 3.8-4. 8 Not Available [facility] ([facility]) [address] [place], [address], 03/07/2024 09:39:11 03/06/20 24 03/07/2024 COMP. METAB OLIC PANEL (14) globulin, total 2.3 g/dL 1.5-4. 5 Not Available [facility] ([facility]) [address] [place], [address], 03/07/2024 09:39:11 03/06/20 24 03/07/2024 COMP. METAB OLIC PANEL (14) bilirubin, total 0.3 mg/dL 0.0-1. 2 Not Available [facility] ([facility]) [address] [place], [address], 03/07/2024 09:39:11 03/06/20 24 03/07/2024 COMP. METAB OLIC PANEL (14) alkaline phosphatase 118 IU/L 44-121 Not Available [facility] ([facility]) [address] [facility], [place], [address], 03/07/2024 09:39:11 03/06/20 24 03/07/2024 COMP. METAB OLIC PANEL (14) AST (SGOT) 15 IU/L 0-40 Not Available [facility] ([facility]) [address] [facility], [place], [address], 03/07/2024 09:39:11 03/06/20 24 03/07/2024 COMP. METAB OLIC PANEL (14) ALT (SGPT) 8 IU/L 0-32 Not Available [facility] ([facility]) [address] [facility], [place], [address], 03/07/2024 09:39:11 03/06/20 24 03/07/2024 MICRO SCOPI C EXAMI NATIO N WBC NONE SEEN /hpf 0-5 Not Available [facility] ([facility]) [address] [place], [address], 03/07/2024 09:39:12 03/06/20 24 03/07/2024 MICRO SCOPI C EXAMI NATIO N RBC 0-2 /hpf 0-2 Not Available [facility] ([facility]) [address] [place], [address], 03/07/2024 09:39:12 03/06/20 24 03/07/2024 MICRO SCOPI C EXAMI NATIO N epithelial cells (non renal) NONE SEEN /hpf 0-10 Not Available [facility] ([facility]) [address] [place], [address], 03/07/2024 09:39:12 03/06/20 24 03/07/2024 MICRO SCOPI C EXAMI NATIO N casts NONE SEEN /lpf nonese en Not Available [facility] ([facility]) [address] [facility], [place], [address], 03/07/2024 09:39:12 03/06/20 24 03/07/2024 MICRO SCOPI C EXAMI NATIO N bacteria NONE SEEN nonese en/few Not Available [facility] ([facility]) [address] [facility], [place], [address], 03/07/2024 09:39:12 03/06/20 24 03/07/2024 CBC WITH DIFFE RENTI AL/PL ATELE T WBC 7.7 x10e3 /uL 3.4-10 .8 Not Available [facility] ([facility]) [address] [facility], [place], [address], 03/07/2024 09:39:13 03/06/20 24 03/07/2024 CBC WITH DIFFE RENTI AL/PL ATELE T RBC 3.86 x10e6 /uL 3.77-5 .28 Not Available [facility] ([facility]) [address] [facility], [place], [address], 03/07/2024 09:39:13 03/06/2003/07/2024 CBC WITH DIFFE RENTI AL/PL ATELE T hemoglobin 11.4 g/dL 11.1-1 5.9 Not Available [facility] ([facility]) [address] [facility], [place], [address], 03/07/2024 09:39:13 03/06/20 24 03/07/2024 CBC WITH DIFFE RENTI AL/PL ATELE T hematocrit 36.4 % 34.0-4 6.6 Not Available [facility] ([facility]) [address] [facility], [place], [address], 03/07/2024 09:39:13 03/06/20 24 03/07/2024 CBC WITH DIFFE RENTI AL/PL ATELE T MCV 94 fL 79-97 Not Available [facility] ([facility]) [address] [facility], [place], [address], 03/07/2024 09:39:13 03/06/20 24 03/07/2024 CBC WITH DIFFE RENTI AL/PL ATELE T MCH 29.5 pg 26.6-3 3.0 Not Available [facility] ([facility]) [address] [facility], [place], [address], 03/07/2024 09:39:13 03/06/20 24 03/07/2024 CBC WITH DIFFE RENTI AL/PL ATELE T MCHC 31.3 g/dL 31.5-3 5.7 below low normal Not Available [facility] ([facility]) [address] [facility], [place], [address], 03/07/2024 09:39:13 03/06/2003/07/2024 CBC WITH DIFFE RENTI AL/PL ATELE T RDW 12.6 % 11.7-1 5.4 Not Available [facility] ([facility]) [address] [facility], [place], [address], 03/07/2024 09:39:13 03/06/2003/07/2024 CBC WITH DIFFE RENTI AL/PL ATELE T platelets 279 x10e3 /uL 150-45 0 Not Available [facility] ([facility]) [address] [facility], [place], [address], 03/07/2024 09:39:13 03/06/20 24 03/07/2024 CBC WITH DIFFE RENTI AL/PL ATELE T neutrophils 78 % notest ab. Not Available [facility] ([facility]) [address] [facility], [place], [address], 03/07/2024 09:39:13 03/06/20 24 03/07/2024 CBC WITH DIFFE RENTI AL/PL ATELE T lymphs 12 % notest ab. Not Available [facility] ([facility]) [address] [facility], [place], [address], 03/07/2024 09:39:13 03/06/20 24 03/07/2024 CBC WITH DIFFE RENTI AL/PL ATELE T monocytes 9 % notest ab. Not Available [facility] ([facility]) [address] [facility], [place], [address], 03/07/2024 09:39:13 03/06/20 24 03/07/2024 CBC WITH DIFFE RENTI AL/PL ATELE T eos 1 % notest ab. Not Available [facility] ([facility]) [address] [facility], [place], [address], 03/07/2024 09:39:13 03/06/20 24 03/07/2024 CBC WITH DIFFE RENTI AL/PL ATELE T basos 0 % notest ab. Not Available [facility] ([facility]) [address] [facility], [place], [address], 03/07/2024 09:39:13 03/06/20 24 03/07/2024 CBC WITH DIFFE RENTI AL/PL ATELE T neutrophils (absolute) 5.9 x10e3 /uL 1.4-7. 0 Not Available [facility] ([facility]) [address] [facility], [place], [address], 03/07/2024 09:39:13 03/06/20 24 03/07/2024 CBC WITH DIFFE RENTI AL/PL ATELE T lymphs (absolute) 0.9 x10e3 /uL 0.7-3. 1 Not Available [facility] ([facility]) [address] [facility], [place], [address], 03/07/2024 09:39:13 03/06/20 24 03/07/2024 CBC WITH DIFFE RENTI AL/PL ATELE T monocytes(ab solute) 0.7 x10e3 /uL 0.1-0. 9 Not Available [facility] ([facility]) [address] [facility], [place], [address], 03/07/2024 09:39:13 03/06/20 24 03/07/2024 CBC WITH DIFFE RENTI AL/PL ATELE T eos (absolute) 0.1 x10e3 /uL 0.0-0. 4 Not Available [facility] ([facility]) [address] [facility], [place], [address], 03/07/2024 09:39:13 03/06/20 24 03/07/2024 CBC WITH DIFFE RENTI AL/PL ATELE T baso (absolute) 0.0 x10e3 /uL 0.0-0. 2 Not Available [facility] ([facility]) [address] [facility], [place], [address], 03/07/2024 09:39:13 03/06/20 24 03/07/2024 CBC WITH DIFFE RENTI AL/PL ATELE T immature granulocytes 0 % notest ab. Not Available [facility] ([facility]) [address] [facility], [place], [address], 03/07/2024 09:39:13 03/06/20 24 03/07/2024 CBC WITH DIFFE RENTI AL/PL ATELE T immature grans (abs) 0.0 x10e3 /uL 0.0-0. 1 Not Available [facility] ([facility]) [address] [facility], [place], [address], 03/07/2024 09:39:13 10/02/19 24 10/02/2023 XR, chest No observ ation record ed. [email or web address] [address], [address], 10/04/2023 09:38:46 03/06/2003/06/2024 XR, lumba r spine No observ ation record ed. [facility] [address], [place], [address], 03/08/2024 09:14:36 06/21/20 elect rocar diogr am No observ ation record ed. [facility] In-Office Order Internal Use Only DO Not Attach Compendium DO Not Attach Compendium, Do Not Delete/merge, [id number] 06/21/2024 11:17:24 06/21/2006/21/2024 elect rocar diogr am No observ ation record ed. [facility] In-Office Order Internal Use Only DO Not Attach Compendium DO Not Attach Compendium, Do Not Delete/merge, [id number] 06/21/2024 11:28:43 Result Notes None recorded. Problems Name Problem SNOMED Code Status Onset Date Resolution Date Notes Provider Name and Address Organization Details Recorded Time Atrial fibrillatio n 70973145 Active 2023 Hyun Paulson MD Attn: Telly meyers,[address] [facility], [place], [address], [place] [facility] 18:14:41 Essential hypertensio n 73047636 Active 2023 Hyun Paulson MD Attn: Telly meyers,[address] 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, [place], [address], [place] [facility] 18:14:46 Anxiety 06049252 Active 2023 Hyun Paulson MD Attn: Telly meyers,[address] [facility], [place], [address], [place] [facility] 18:14:47 Chronic hypoxemic respiratory failure 185096353 Active 2023 Hyun Paulson MD Attn: Telly meyers,[address], [place], [address], [place] [facility] 18:14:49 Hyperlipide lisa 60940968 Active 2023 Hyun Paulson MD Attn: Telly meyers,[address], [place], [address], [place] [facility] 18:14:50 Gastroesoph ageal reflux disease without esophagitis 152728381 Active 2023 Hyun Paulson MD Attn: Telly meyers,[address], [place], [address], [place] [facility] 18:14:53 Problem Notes None recorded. Procedures Surgical History Date Name Laterality Status Provider Name and Address Organization Details Recorded Time Eye Surgery completed Genevieve Frederick MA [facility] 11/01/2023 16:41:58 Hernia Repair completed Genevieve Frederick MA [facility] 11/01/2023 16:42:04 Tonsillectomy completed Genevieve Frederick MA [facility] 11/01/2023 16:42:10 Dilation and Curettage completed Genevieve Frederick MA [facility] 11/01/2023 16:42:15 hysterectomy completed Genevieve Frederick MA [facility] 11/01/2023 16:42:21 Imaging Results Imaging Date Name Status LastModified by Organization Details LastModified Time 10/02/2023 XR, chest completed [facility] [address] [place], [address], 10/04/2023 09:38:46 03/06/2024 XR, lumbar spine completed [facility] [address] [place], [address], 03/08/2024 09:14:36 06/21/2024 electrocardiogram completed [facility] Order Internal Use Only DO Not Attach Compendium DO Not Attach Compendium, Do Not Delete/merge, [id number] 06/21/2024 11:17:24 06/21/2024 electrocardiogram completed [facility] Order Internal Use Only DO Not Attach Compendium DO Not Attach Compendium, Do Not Delete/merge, [id number] 06/21/2024 11:28:43 Procedure Notes None recorded. Medical Equipment None Reported. Allergies Allergen ID Allergen Name Allergen Category Reaction Reaction Severity Criticality Documentation Date Start Date Code Code System Note Provider Name and Address Organization Details Recorded Time 315566 Medicinal product containin g penicilli n and acting as antibacte rial agent (product) medicatio n rash Not available Not available 09/08/2023 63403 05 SNOMED SWATHI Riz[place], [place] - [facility] 4 17:27:07 560599 Benadryl medicatio n rash Not available Not available 09/08/2023 50144 7 RxNorm SWATHI Rizzo, [place] - [facility] 4 17:26:59 527456 Vaccine product containin g only Clostridi um tetani antigen (medicina l product) medicatio n Not available Not available Not available 11/01/2023 27001 2002 SNOMED SWATHI Foster, [facility] 4 16:44:16 Medications Name Sig Start Date Stop Date Status Note LastModified by Organization Details LastModified Time losartan 50 mg tablet TAKE 1 TABLET BY MOUTH DAILY active Not Available Not Available No t Available atorvastati n 40 mg tablet TAKE 1 TABLET BY MOUTH DAILY DIRECTED active Not Available Not Available No t Available doxycycline hyclate 100 mg capsule TAKE 1 CAPSULE BY MOUTH TWICE DAILY FOR 7 DAYS 06/21 completed Not Available Not Available Not Available albuterol sulfate 2.5 mg/3 mL (0.083 %) solution for nebulizatio n USE 3 ML VIA NEBULIZER THREE TIMES DAILY NEEDED active Not Available Not Available No t Available Lidocaine Viscous 2 % mucosal solution SWISH AND SPIT 5ML FOR 1 MINUTE FOUR TIMES DAILY NEEDED DIRECTED 10/31 completed Not Available Not Available Not Available hydrocodone 5 mg-acetamin ophen 325 mg tablet TAKE 1 TABLET BY MOUTH EVERY 8 HOURS NEEDED FOR PAIN 10/31 completed Not Available Not Available Not Available diltiazem CD 240 mg capsule,ext ended release 24 hr TAKE 1 CAPSULE BY MOUTH EVERY DAY active Not Available Not Available No t Available prednisone 20 mg tablet TAKE 2 TABLETS BY MOUTH EVERY DAY FOR 5 DAYS 06/21 completed Not Available Not Available Not Available metronidazo le 500 mg tablet TAKE 1 TABLET BY MOUTH EVERY 8 HOURS 10/31 completed Not Available Not Available Not Available chlorthalid one 25 mg tablet Take 1 tablet every day by oral route as directed. active Not Available Not Available No t Available ciprofloxac in 500 mg tablet TAKE 1 TABLET BY MOUTH EVERY 12 HOURS 10/31 completed Not Available Not Available Not Available tramadol 50 mg tablet TAKE 1 TABLET BY MOUTH EVERY 6 HOURS NEEDED 10/31 completed Not Available Not Available Not Available pantoprazol e 40 mg tablet,florencio yed release TAKE 1 TABLET BY MOUTH DAILY active Not Available Not Available No t Available diltiazem CD 120 mg capsule,ext ended release 24 hr 10/31 completed Not Available Not Available Not Available montelukast 10 mg tablet TAKE 1 TABLET BY MOUTH DAILY DIRECTED active Not Available Not Available No t Available albuterol sulfate HFA 90 mcg/actuati on aerosol inhaler INHALE 2 PUFFS BY MOUTH EVERY 4 TO 6 HOURS NEEDED 10/31 completed Not Available Not Available Not Available escitalopra m 20 mg tablet TAKE 1 TABLET BY MOUTH DAILY 2023 active Not Available Not Available Not Avai lable Eliquis 5 mg tablet TAKE 1 TABLET BY MOUTH TWICE DAILY active Not Available Not Available No t Available magnesium 400 mg (as magnesium oxide) tablet Take 1 tablet twice a day by oral route. active Not Available Not Available No t Available Tiadylt ER 240 mg capsule,ext ended release TAKE 1 CAPSULE BY MOUTH EVERY DAY 10/31 completed Not Available Not Available Not Available Breztri Aerosphere 160 mcg-9mcg-4. 8mcg/actuat ion HFA aerosol inhaler active Not Available Not Available Not Available Trelegy Ellipta 200 mcg-62.5 mcg-25 mcg powder for inhalation USE 1 INHALATIO N BY MOUTH DAILY DIRECTED 2023 active Not Available Not Available Not Avai lable Vitals Date Recorded Body weight Heart rate Oxygen saturation Oxygen saturation in Arterial blood by Pulse oximetry Systolic blood pressure Diastolic blood pressure Provider Name and Address Organization Details Last Updated DateTime 4 26466.9 8 g 68 /min 97 % 97 % 132 mm[Hg] 74 mm[Hg] Genevieve Frederick [place] - [facility] 4 16:49:00 Date Recorded Body height Body mass index (BMI) Body weight Heart rate Oxygen saturation Oxygen saturation in Arterial blood by Pulse oximetry Inhaled oxygen flow rate Systolic blood pressure Diastolic blood pressure Provider Name and Address Organization Details Last Updated DateTime 4 167.64 cm 30.5 kg/m2 71121.9 6 g 81 /min 94 % 94 % 3 L/min 148 mm[Hg] 68 mm[Hg] Camilla Montgomery [place] - [facility] 4 11:34:37 Date Recorded Body height Heart rate Oxygen saturation Oxygen saturation in Arterial blood by Pulse oximetry Inhaled oxygen flow rate Systolic blood pressure Diastolic blood pressure Provider Name and Address Organization Details Last Updated DateTime 4 167.64 cm 144 /min 92 % 92 % 4 L/min 110 mm[Hg] 60 mm[Hg] Camilla Montgomery [place] - [facility] 4 10:14:11 Social History Question Answer Notes LastModified by Organizat ion Details LastModified Time Tobacco Smoking Status Former Smoker Genevieve FrederickSWATHI null, [place] - [facility] 11/01/2023 16:43:16 Do You Have An Advance Directive? No Information not available 03/06/2024 What Is Your Level Of Alcohol Consumption? None Information not available 11/01/2023 Are You Blind Or Do You Have Difficulty Seeing? No Information not available 11/01/2023 What Is Your Level Of Caffeine Consumption? Occasional Information not available 03/06/2024 In The 14 Days Before Symptom Onset, Have You Had Close Contact With A Laboratory-confir med COVID-19 While That Case Was Ill? No Information not available 03/06/2024 In The 14 Days Before Symptom Onset, Have You Had Close Contact With A Person Who Is Under Investigation For COVID-19 While That Person Was Ill? No Information not available 03/06/2024 Have You Been To An Area Known To Be High Risk For COVID-19? No Information not available 03/06/2024 Are You Currently Employed? No Information not available 03/06/2024 Are You Deaf Or Do You Have Serious Difficulty Hearing? Yes Information not available 11/01/2023 What Type Of Diet Are You Following? REGULAR Information not available 03/06/2024 Are There Any Guns Present In Your Home? No Information not available 03/06/2024 What Was The Date Of Your Most Recent Tobacco Screening? 06/21/2024 Information not available 06/21/2024 Do You Use Your Seat Belt Or Car Seat Routinely? Yes Information not available 03/06/2024 Do You Have Smoke And Carbon Monoxide Detectors In Your Home? Yes Information not available 03/06/2024 How Much Tobacco Do You Smoke? 1 PPD Information not available 11/01/2023 Do You Feel Stressed (tense, Restless, Nervous, Or Anxious, Or Unable To Sleep At Night)? [id number] Information not available 06/21/2024 Do You Use Any Illicit Or Recreational Drugs? No Information not available 03/06/2024 Do You Use Sunscreen Routinely? Yes Information not available 03/06/2024 Has Tobacco Cessation Counseling Been Provided? Yes Information not available 03/06/2024 On What Date Was Tobacco Cessation Counseling Provided? 06/21/2024 Information not available 06/21/2024 How Many Years Have You Smoked Tobacco? 25 Information not available 11/01/2023 Do You Or Have You Ever Used Any Other Forms Of Tobacco Or Nicotine? No Information not available 03/06/2024 Sex: Female Functional Status Question Answer Note LastModified by Organizat ion Details LastModified Time Are you able to care for yourself? Yes has help some times Information not available 11/01/2023 Mental Status None recorded. Family History Relationship Description Onset Age of this Age Resolved Age Notes LastModified by Organization Details LastModified Time Father Heart disease [email or web address] Not available 2023 16:42:32 Mother Heart disease [email or web address] Not available 2023 16:42:32 Mother Hypertensive disorder [email or web address] Not available 2023 16:42:36 Mother Hypercholest erolemia apaytonma Not available 2023 16:42:41 Mother Osteoporosis [email or web address] Not avai lable 11/01/2023 16:42:49 Medical History Condition Response High Blood Pressure Y Atrial Fibrillation Y Kidney or Bladder Problems N Thyroid Problems N Depression N COPD Y GI Problems N Skin Problems N Heart Attack (SC) N Diabetes N Anxiety Disorder Y Muscle, Joint, or Bone Problems N Seizures/Epilepsy N Acid Reflux (GERD) Y Stroke N Asthma Y Allergies Y High Cholesterol Y Hepatitis N Liver Disease N Headaches N Heart Failure N Osteoporosis N Gynecological HistoryNo gynecological history recorded. Obstetrics History GPAL:G 0 P 0 0 0 0 Past Encounters Encounter ID Performer Location Encounter Start Date Encounter Closed Date Diagnosis/Indication Diagnosis SNOMED-CT Code Diagnosis ICD10 Code [id number] MD Jennifer Recinos (Adult Med) [address] [place] [phone] 11/01/2023 16:30:05 11/01/2023 17:38:54 Atrial fibrillation 30038684 I48.91 Essential hypertension 34338174 I10 Asthma-chr onic obstructive pulmonary disease overlap syndrome 8738212453 5158902 J44.9 Anxiety 72750935 F41.9 Chronic hy poxemic respiratory failure 210679700 J96.11 Hyperlipidemia 32939204 E78.5 Gastroesop hageal reflux disease without esophagitis 244290287 K21.9 [id number] MD Jennifer Recinos (Adult Med) [address] [place] [address] 03/06/2024 11:11:58 03/06/2024 12:17:28 Essential hypertension 53567354 I10 Obesity 107432436 E66.8 Low back pain 546094621 M54.50 Asthma-chr onic obstructive pulmonary disease overlap syndrome 4876749275 4850786 J44.9 Anxiety 71439300 F41.9 Atrial fibrillation 4943 6004 I48.91 Chronic hy poxemic respiratory failure 534593092 J96.11 Gastroesop hageal reflux disease without esophagitis 351881242 K21.9 Hyperlipidemia 58063174 E78.5 [id number] Shruthi Mckeon MA [facility] (Adult Med) [address] [place] [address] 06/21/2024 10:01:05 06/21/2024 10:56:58 Dyspnea 444698037 R06.00 Health Concerns Section Related Observation LastModified by Organization Detai ls LastModified Time None Recorded Concern Status LastModified by Organization Details LastModified Time None Recorded Advance Directives Directive N: Payers Encounter Date Sequence Insurance Name Policy Number Policy Flannery Covered Member ID Flannery Member ID Guarantor Name 11/01/2023 1 [place] [id number] aMlika Knight [id number] Malika Knight 11/01/2023 1 [place] Malika Knight [id number] Malika Dewittwley 03/06/2024 1 [place] [id number] Malika Knight [id number] Malika Dewittwley 03/06/2024 1 [place] Malika Knight [id number] Malika Knight Notes Date Note Type Note Provider Name and Address Organization Details Recorded Time 11/01/2023 text/html 78-year-old with asthma COPD overlap syndrome. Hypertension hyperlipidemia atrial fibrillation GERD anxiety comes in for follow-up of her medical problems A-fib has been doing fine number chronic hypoxic respiratory failure has been stable on her inhalers and her oxygen anxiety has been doing fine no SI or HI. Her GERD actually has been doing well Hyun Paulson MD Attn: [address] [place], [address], [facility] 11/12/2023 18:15:55 03/06/2024 text/html 78-year-old with asthma COPD overlap syndrome. Hypertension hyperlipidemia atrial fibrillation GERD anxiety comes in for follow-up of her medical problems A-fib has been doing fine number chronic hypoxic respiratory failure has been stable on her inhalers and her oxygen anxiety has been doing fine no SI or HI. Her GERD actually has been doing well she has had a little bit of low back pain without any fall does not go into her legs just kind of hurts with bending and twisting in movement. Better with rest. No bowel or bladder incontinence. 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
--- OUTSIDE RECORDS SUMMARY | 2024-06-21 12:43 | XMS_ITS | CONTINUITY OF CARE DOCUMENT ---
Author Name ji, ji Address Unknown Organization [facility] Address [address] [place] [address] Phone [phone] Care Team Providers Care Street Commissioner Name Role Phone Shamir Palacios MD Unavailable [phone] HYUN FUNK MD Unavailable HYUN FUNK MD Unavailable PROBLEMS Condition Status Date Provider Notes Tachypnea active Shamir Palacios MD Cardiology examination active Shamir Palacios MD Former smoker active Shamir Palacios MD Shortness of breath active Shamir Palacios MD Hypercholesterolemia, mixed active Sade Gr uenenfelder Edema active Shamir Palacios MD Atrial fib active Shamir Palacios MD Family History of Hypertension: completed - Us yonny Palacios MD Family History of Hyperlipidemia: completed - Shamir Palacios MD OBESITY active Shamir Palacios MD HTN NEEDS BETTER CONTROL-01/07 2 ECHO EF 60 active ? Montez Ochoa RN COPD active Shamir Palacios MD CHEST PAIN-01/18 NUC NEG EF 76 active ? Montez duong RN ENCOUNTERS Date Type Provider Location Encounter Diag nosis - In-person encounter Office Visit Shamir Palacios MD [facility] - In-person encounter Office Visit Shamir Palacios MD [facility] Tachypnea - In-person encounter Office Visit Shamir Palacios MD [facility] - In-person encounter Office Visit Shamir Palacios MD [facility] - In-person encounter Office Visit Shamir Palacios MD [facility] - In-person encounter Office Visit Shamir Palacios MD [facility] - In-person encounter Office Visit Shamir Palacios MD [facility] - In-person encounter Office Visit Shamir Palacios MD [facility] Cardiology examination - In-person encounter Office Visit Shamir Palacios MD [facility] Family History of Hyperlipidemia:Famil y History of Hypertension:Former smoker - In-person encounter Office Visit Shamir Palacios MD [facility] - In-person encounter Office Visit Shamir Palacios MD [facility] - In-person encounter Office Visit Vanessa Barney MD [facility] - In-person encounter Office Visit Shamir Palacios MD [facility] - In-person encounter Office Visit Shamir Palacios MD [facility] - In-person encounter Office Visit Shamir Palacios MD [facility] - In-person encounter Office Visit Shamir Palacios MD [facility] - In-person encounter Office Visit Shamir Palacios MD [facility] - In-person encounter Office Visit Shamir Palacios MD [facility] - In-person encounter Office Visit Shamir Palacios MD [facility] Shortness of breath - In-person encounter Office Visit Shamir Palacios MD [facility] - In-person encounter Office Visit Shamir Palacios MD [facility] - In-person encounter Office Visit Shamir Palacios MD [facility] - In-person encounter Office Visit Shamir Palacios MD [facility] Atrial fibEdemaHypercholest erolemia, mixed - In-person encounter Office Visit Shamir Palacios MD [facility] - In-person encounter Office Visit Shamir Palacios MD [facility] CHEST PAIN-01/18 NUC NEG EF 76COPDHTN NEEDS BETTER CONTROL-01/18 ECHO EF 60OBESITY VITAL SIGNS Date Observation Value Provider Body Mass Index (Ratio) 30.34 kg/m2 Lucho Palacios MD blood pressure, cuff size regular Terry wanmirna Hernandez blood pressure, diastolic 64 mm[Hg] Terry wanmirna Hernandez blood pressure, systolic 146 mm[Hg] Rios Hernandez pulse rate 90 /min Laurenmain Hernandez oxygen saturation, oximetry 90 % Lauren Hernandez respiratory rate E&M 12 /min Lauren Hernandez weight E&M 188 [lb_av] Lauren Hernandez height E&M 66 [in_i] Laurenmain Hernandez Inhaled O2 3 L/min Laurenmain Hernandez Body Mass Index (Ratio) 30.18 kg/m2 Lucho Palacios MD blood pressure, diastolic 81 mm[Hg] Ja rret blood pressure, systolic 175 mm[Hg] Jar ret pulse rate 78 /min Justin oxygen saturation, oximetry 92 % blood pressure, cuff size regular Ja rret Inhaled O2 3 L/min Justin respiratory rate E&M 18 /min Justin weight E&M 187 [lb_av] Justin height E&M 66 [in_i] Justin Body Mass Index (Ratio) 29.86 kg/m2 Lucho Palacios MD weight E&M 185 [lb_av] [facility] blood pressure, diastolic 90 mm[Hg] [facility] blood pressure, cuff size regular [facility] blood pressure, systolic 174 mm[Hg] [facility] oxygen saturation, oximetry 85 % [facility] respiratory rate E&M 22 /min Sunitha Amrik luke height E&M 66 [in_i] [facility] Body Mass Index (Ratio) 30.02 kg/m2 Sean hall Sherry blood pressure, diastolic 95 mm[Hg] Kate nkLogic blood pressure, systolic 136 mm[Hg] Cecille kLogic pulse rate 155 /min Justin blood pressure, diastolic 95 mm[Hg] Brady rret blood pressure, systolic 136 mm[Hg] Jar ret Inhaled O2 3 L/min Justin oxygen saturation, oximetry 94 % respiratory rate E&M 18 /min Justin weight E&M 186 [lb_av] Justin y height E&M 66 [in_i] Justin Body Mass Index (Ratio) 30.50 kg/m2 Lucho Palacios MD blood pressure, cuff size regular Ja rret blood pressure, diastolic 72 mm[Hg] Ja rret blood pressure, systolic 157 mm[Hg] [facility] pulse rate 80 /min Justin Inhaled O2 3 L/min Justin respiratory rate E&M 16 /min Justin oxygen saturation, oximetry 92 % Justin weight E&M 189 [lb_av] Justin height E&M 66 [in_i] Justin Body Mass Index (Ratio) 31.31 kg/m2 Lucho Palacios MD blood pressure, cuff size regular Ke rri Gruene blood pressure, diastolic 80 mm[Hg] Ke rri Gruenenf blood pressure, systolic 190 mm[Hg] Nevaeh [facility] Inhaled O2 3 L/min Sade Yates oxygen saturation, oximetry 85 % Sade Barrera respiratory rate E&M 14 /min Sade elliott pulse rate 89 /min Sade Yates [facility] weight E&M 194 [lb_av] Sade Aimeneangelito er height E&M 66 [in_i] Sade Yates [facility] Body Mass Index (Ratio) 30.82 kg/m2 Lucho Palacios MD blood pressure, cuff size regular Brady Ochoa RN blood pressure, diastolic 82 mm[Hg] Brady Ochoa RN blood pressure, systolic 168 mm[Hg] Montez Ochoa RN Inhaled O2 3 L/min Montez Ochoa RN oxygen saturation, oximetry 93 % Montez Ochoa RN respiratory rate E&M 26 /min Montez smith RN pulse rate 90 /min Montez Ochoa RN weight E&M 191 [lb_av] Montez Ochoa RN Body Mass Index (Ratio) 30.99 kg/m2 Lucho Palacios MD blood pressure, diastolic 74 mm[Hg] Ri tiago Boyer blood pressure, systolic 148 mm[Hg] Crow rayo Boyer blood pressure, cuff size large Katie Boyer oxygen saturation, oximetry 98 % Myah Boyer respiratory rate E&M 16 /min Loraine Boyer pulse rate 80 /min Myah Phillips son weight E&M 192 [lb_av] Myah Phillips son height E&M 66 [in_i] Myah Phillips son Body Mass Index (Ratio) 31.47 kg/m2 Lucho Palacios MD blood pressure, cuff size large Cristo pricee Prince blood pressure, diastolic 86 mm[Hg] Cristo enzo Prince blood pressure, systolic 130 mm[Hg] Gunjan rice Prince oxygen saturation, oximetry 97 % Simin Prince respiratory rate E&M 16 /min Simin Prince pulse rate 93 /min Simin Prince weight E&M 195 [lb_av] Simin Ponca height E&M 66 [in_i] Simin Ponca Body Mass Index (Ratio) 30.18 kg/m2 Lucho Palacios MD blood pressure, diastolic 90 mm[Hg] Kate nkLogic blood pressure, systolic 140 mm[Hg] Cecille kLogic blood pressure, cuff size regular Cy claus Emerson blood pressure, diastolic 90 mm[Hg] Refugio Emerson blood pressure, systolic 140 mm[Hg] Carolynn Emerson Inhaled O2 2 L/min Lyudmila dupont oxygen saturation, oximetry 93 % Lyudmila Emerson respiratory rate E&M 16 /min Lyudmila Emerson pulse rate 81 /min Lyudmila dupont weight E&M 187 [lb_av] Lyudmila dupont height E&M 66 [in_i] Lyudmila dupont Body Mass Index (Ratio) 30.34 kg/m2 Lucho Palacios MD blood pressure, cuff size large Ke rri Gruenenfeldjaya blood pressure, diastolic 68 mm[Hg] Ke rri Gruenenfeldjaya blood pressure, systolic 136 mm[Hg] Nevaeh ri Holly Inhaled O2 3 L/min Sade Trudy [facility] oxygen saturation, oximetry 99 % Sade Holly respiratory rate E&M 20 /min Sade elliott pulse rate 81 /min Sade Trudy er weight E&M 188 [lb_av] Sade Gruenenfe er height E&M 66 [in_i] Sade Olivieruenenfe lder Body Mass Index (Ratio) 28.73 kg/m2 Davie Pollock Sherry blood pressure, cuff size regular Ke rri Gruenenfelder blood pressure, diastolic 80 mm[Hg] Ke rri Gruenenfelder blood pressure, systolic 142 mm[Hg] Ker ri Jujuer Inhaled O2 2 L/min Sade Yates lder oxygen saturation, oximetry 97 % Sade Oliveroselder respiratory rate E&M 18 /min Sade guerraelder pulse rate 81 /min Sade Oliverose lder weight E&M 178 [lb_av] Sade Yates lder height E&M 66 [in_i] Sade Oliverose er Body Mass Index (Ratio) 28.79 kg/m2 Lucho Palacios MD blood pressure, diastolic 72 mm[Hg] Josefina Aaliyah Ramsey blood pressure, systolic 163 mm[Hg] Martine De La Torreignacio Ramsey Inhaled O2 2 L/min Andrea Faisalmurphy queen oxygen saturation, oximetry 98 % AndreaFarzaneh Ramsey respiratory rate E&M 18 /min Molly pierre Ramsey pulse rate 91 /min Andrae Malone bret weight E&M 178.4 [lb_av] Andrea Juancho paul height E&M 66 [in_i] Andrea Faisal queen Body Mass Index (Ratio) 28.57 kg/m2 Lucho Palacios MD blood pressure, cuff size regular Refugio Emerson blood pressure, diastolic 80 mm[Hg] Refugio Emerson blood pressure, systolic 142 mm[Hg] Carolynn Emerson pulse rate 96 /min Lyudmila dupont respiratory rate E&M 18 /min Lyudmila Emerson oxygen saturation, oximetry 97 % Lyudmila Emerson weight E&M 177 [lb_av] Lyudmila Marchbel l height E&M 66 [in_i] Lyudmila Marchbel l Body Mass Index (Ratio) 27.44 kg/m2 Lucho Palacios MD oxygen saturation, oximetry 95 % Lyudmila Ki blood pressure, cuff size regular Cy claus Emerson blood pressure, diastolic 60 mm[Hg] Cy claus Ki blood pressure, systolic 130 mm[Hg] Carolynn Emerson respiratory rate E&M 16 /min Lyudmila Emerson pulse rate 81 /min Lyudmila dupont weight E&M 170 [lb_av] Lyudmila Marchbel l height E&M 66 [in_i] Lyudmila Marchbel l Body Mass Index (Ratio) 28.08 kg/m2 Lucho Palacios MD blood pressure, diastolic 84 mm[Hg] Da rafi Rossy blood pressure, systolic 166 mm[Hg] Dac ia Rossy oxygen saturation, oximetry 90 % Flavia Rossy respiratory rate E&M 18 /min Flavia V oss pulse rate 87 /min Flavia Rossy weight E&M 174 [lb_av] Flavia Rossy height E&M 66 [in_i] Flavia Rossy Body Mass Index (Ratio) 27.40 kg/m2 Lucho Palacios MD blood pressure, diastolic 77 mm[Hg] Josefina Ramsey blood pressure, systolic 152 mm[Hg] Martine Ramsey Inhaled O2 4 L/min Andrea queen oxygen saturation, oximetry 95 % Andrea Ramsey respiratory rate E&M 20 /min Molly Ramsey pulse rate 97 /min Andrea queen weight E&M 169.8 [lb_av] Andrea paul height E&M 66 [in_i] Andrea queen Body Mass Index (Ratio) 28.89 kg/m2 Lucho Palacios MD blood pressure, cuff size regular Ke rri Holly blood pressure, diastolic 75 mm[Hg] Ke rri Holly blood pressure, systolic 145 mm[Hg] Nevaeh caruso Holly oxygen saturation, oximetry 93 % Sade Holly respiratory rate E&M 16 /min Sade Brenda elliott pulse rate 86 /min Sade Trudy [facility] weight E&M 179 [lb_av] Sade Aimevanessaangelito [facility] height E&M 66 [in_i] Sade Manzanaresangelito [facility] blood pressure, diastolic 72 mm[Hg] Me emre Luna blood pressure, systolic 126 mm[Hg] Belkys watkins Luna pulse rate 80 /min Angela Luna oxygen saturation, oximetry 95 % Angela Luna respiratory rate E&M 16 /min Angela Luna Body Mass Index (Ratio) 28.89 kg/m2 Jaclyn chicas Luna weight E&M 179 [lb_av] Angela Chatterjeeann blood pressure, diastolic 64 mm[Hg] Josefina Ramsey blood pressure, systolic 124 mm[Hg] Martine Ramsey pulse rate 82 /min Andrea queen oxygen saturation, oximetry 96 % Andrea Ramsey respiratory rate E&M 16 /min Molly Ramsey Body Mass Index (Ratio) 30.24 kg/m2 Carmen Ramsey weight E&M 187.4 [lb_av] Andrea paul blood pressure, diastolic 76 mm[Hg] Me emre Luna blood pressure, systolic 137 mm[Hg] Belkys watkins Luna pulse rate 76 /min Angela Chatterjeeann oxygen saturation, oximetry 93 % Angela Luna respiratory rate E&M 15 /min Angela Luna Body Mass Index (Ratio) 29.53 kg/m2 Jaclyn Luna weight E&M 183 [lb_av] Angela Luna blood pressure, diastolic 68 mm[Hg] Josefina Ramsey blood pressure, systolic 138 mm[Hg] Martine Ramsey Body Mass Index (Ratio) 29.18 kg/m2 Carmen Ramsey pulse rate 75 /min Andrea Malone nson oxygen saturation, oximetry 90 % Andrea Ramsey respiratory rate E&M 18 /min Molly Ramsey weight E&M 180.8 [lb_av] Andrea stubbson Body Mass Index (Ratio) 28.24 kg/m2 Leigh i oHlly blood pressure, diastolic 60 mm[Hg] Ke rri Holly blood pressure, systolic 140 mm[Hg] Nevaeh Barrera pulse rate 87 /min Sade bradshawer oxygen saturation, oximetry 92 % Sade Barrera respiratory rate E&M 18 /min Sade elliott weight E&M 175 [lb_av] Sade bradshawer height E&M 66 [in_i] Sade bradshawer blood pressure, diastolic 78 mm[Hg] Brady Ochoa RN blood pressure, systolic 151 mm[Hg] Montez Ochoa RN pulse rate 84 /min Montez Ochoa RN oxygen saturation, oximetry 94 % Montez Ochoa RN respiratory rate E&M 16 /min Montez smith RN weight E&M 206.6 [lb_av] Montez Ochoa RN blood pressure, diastolic 88 mm[Hg] Chelsea Dudleyp blood pressure, systolic 154 mm[Hg] Shane eph Manacop pulse rate 82 /min Rogelio Wewahitchkaaco oxygen saturation, oximetry 95 % [facility] 20 /min [facility] E&M 206.4 [lb_av] [facility] ALLERGIES Allergy Name Onset Date Reaction Criticality Status TETANUS High Criticality active BENADRYL Low Criticality active SULFA Low Criticality active PENICILLIN Low Criticality active HISTORY OF MEDICATION USE Medication Status Instructions Dates Provider Indications Com angela Walker XT 240 mg capsule,extended release 24hr active TAKE 1 CAPSULE BY MOUTH EVERY DAY Ana Maria Mondragon RN chlorthalidone 25 mg tablet active TAKE 1 TABLET BY MOUTH DAILY Shamir Palacios MD pantoprazole 40 mg tablet,delayed release (DR/EC) active Ana Maria Silver PIPE FINISHER Eliquis 5 mg tablet active TAKE 1 TABLET BY MOUTH TWICE DAILY Peg Rivers NP diltiazem HCl 240 mg capsule,extended release 24hr active Take 1 capsule by mouth once a day Peg Rivers NP Eliquis 5 mg tablet completed - Justin Rodriguez aspirin 81 mg tablet,delayed release (DR/EC) completed Take 1 tablet by mouth once a day - Ana Maria Silver PIPE FINISHER Eliquis 5 mg tablet completed TAKE 1 TABLET TWICE A DAY - Angus Fisher diltiazem HCl 240 mg capsule,extended release 24hr completed TAKE 1 CAPSULE DAILY - Sade Barrera Spiriva with HandiHaler 18 mcg capsule, w/inhalation device completed 1 puff twice a day - Sade Barrera Trelegy Ellipta 200-62.5-25 mcg blister with device active 1 puff once a day Sade Barrera TRAMADOL HCL TABLET completed 50 mg 1 tab twice daily - Lyudmila Emerson diltiazem HCl 120 mg capsule,extended release 24hr completed Take 1 capsule once a day - Angus Phillip CARVEDILOL 6.25 MG ORAL TABLET completed Take 1 Tablet Twice a Day. - Sade Barrera CARDIZEM CD 120 MG ORAL CAPSULE EXTENDED RELEASE 24 HOUR completed one daily - Maciej Polk RN ipratropium-albut brock 0.5 mg-3 mg(2.5 mg base)/3 mL solution for nebulization active Inhale as needed Angela Luna TRAMADOL HCL 50 MG ORAL TABLET completed three times daily - Sade Barrera One-A-Day Trubiotics 2 billion cell capsule active once a day Angela Luna omeprazole 20 mg capsule,delayed release(/EC) completed Take 1 twice a day - Ana Maria Rossimijoana PIPE FINISHER MULTIVITAMINS CAPS active 1 tablet once a day Shamir Paalcios MD LASIX 20 MG ORAL TABLET completed 1 tablet p.o. daily - Andrea Ramsey PROAIR HFA AEROSOL SOLUTION completed every 4 hours as needed - Andrea Ramsey SODIUM CHLORIDE SOLUTION completed nasal spray as needed - Andrea Ramsey SPIRIVA HANDIHALER CAPSULE completed once a day - Angela Luna TYLENOL EXTRA STRENGTH TABLET completed 325mg take one pill yvan 4 hours as needed - Angela Luna NORVASC 5 MG ORAL TABLET completed ONE TAB. DAILY - Shamir Palacios MD magnesium oxide 400 mg (241.3 mg magnesium) tablet active Take 1 twice a day Sade Barrera MEGESTROL ACETATE 400 MG/10ML ORAL SUSPENSION completed once a day - Andrea Ramsey Eliquis 5 mg tablet completed Take 1 tablet twice a day - Angus Fisher FERROUS SULFATE TABLET completed 45 mg a day - Andrea Ramsey ADVAIR DISKUS 500-50 MCG/DOSE INHALATION AEROSOL POWDER BREATH ACTIVATED completed 1 puff by mouth twice daily - Flavia Rossy SPIRIVA HANDIHALER CAPSULE completed 1 puff by mouth at bedtime - Flavia Rossy EQ OMEPRAZOLE 20 MG ORAL TABLET DELAYED RELEASE completed 1 tab daily - Sade Barrera losartan 50 mg tablet active Take 1 tablet by mouth twice a day Shamir Palacios MD Lexapro 20 mg tablet active 1 tablet once a day Ana Maria Ventimiglarminda PIPE FINISHER Singulair 10 mg tablet active 1 tablet once a day Angus Fisher atorvastatin 40 mg tablet active 1 tablet once a day Shamir Palacios MD SOCIAL HISTORY Date Observation Value Provider drug use no Verah Bonareri BEAD MAKER alcohol use no Verah Bonareri BEAD MAKER smoking, year quit 1997 Peg Cordon BEAD MAKER number of years as a smoker 25 a Andreinaangeline Bonareri BEAD MAKER smoking history, tot al pack/day 2 Verah Bonareri BEAD MAKER cigarette use yes Verah Bonareri BEAD MAKER smoking status Former smoker Peg Bonare ri BEAD MAKER drug use no Sunitha Hernandez alcohol use no Sunitha Hernandez smoking, year quit 1997 [facility] number of years as a smoker 25 a Sunitha Hernandez smoking history, tot al pack/day 2 Sunitha Hernandez cigarette use yes Sunitha Hernandez smoking status Former smoker Sunitha Hernandez drug use no Verah Bonareri BEAD MAKER alcohol use no Verah Bonareri BEAD MAKER smoking, year quit 1997 Peg Cordon BEAD MAKER number of years as a smoker 25 a Peg Rivers BEAD MAKER smoking history, tot al pack/day 2 Peg Rivers BEAD MAKER cigarette use yes Peg Rivers BEAD MAKER smoking status Former smoker Peg Leo ri BEAD MAKER drug use no Ana Maria Ventimig cassie PIPE FINISHER alcohol use no Ana Maria Ventimig cassie PIPE FINISHER smoking status Former smoker Ana Maria Venti miglia PIPE FINISHER drug use no Ana Maria Ventimig cassie PIPE FINISHER alcohol use no Ana Maria Ventimig cassie PIPE FINISHER smoking status Former smoker Ana Maria Venti miglia [facility] social history E&M Marital Statu s: L mora with family/friends E thnicity: Eli rosas is a former smoker. Smoking History: P alison is a former smoker. Shamir Palacios MD physical exercise, frequency, days per week no Shamir Palacios MD caffeine use, averag e drinks per day yes Shmair Palacios MD smoking, year quit 1997 Shamir hurt MD number of years as a smoker 25 a Shamir Palacios MD smoking history, tot al pack/day 2 Shamir Palacios MD cigarette use yes Shamir Cooper smoking status Former smoker Shamir Palacios MD social history reviewed E&M revi ewed - no changes required Shamir Palacios MD social history E&M Marital Statu s: L mora with family/friends E thnicity: P alison is a former smoker. Smoking History: Eli rosas is a former smoker. Shamir Palacios MD social history reviewed E&M revi ewed - no changes required Shamir Palacios MD physical exercise, frequency, days per week no Myah Boyer caffeine use, averag e drinks per day yes Myah Boyer smoking, year quit 1997 Myah Boyer number of years as a smoker 25 a Myah Boyer smoking history, tot al pack/day 2 Myah Boyer cigarette use yes Myah toro smoking status Former smoker Myah cummings social history E&M Marital Statu s: L mora with family/friends E thnicity: P atient is a former smoker. Smoking History: P atmilton is a former smoker. Shamir Palacios MD physical exercise, frequency, days per week no Shamir Palacios MD caffeine use, averag e drinks per day yes Shamir Palacios MD smoking, year quit 1997 Shamir hurt MD number of years as a smoker 25 a Shamir Palacios MD smoking history, tot al pack/day 2 Shamir Palacios MD cigarette use yes Shamir Cooper smoking status Former smoker Shamir Palacios MD social history reviewed E&M revi ewed - no changes required Shamir Palacios MD social history E&M Marital Statu s: Joy velazco with family/friends E thnicity: P alison is a former smoker. Smoking History: P atmilton is a former smoker. Shamir Palacios MD social history reviewed E&M revi ewed - no changes required Shamir Palacios MD smoking status Former smoker Lyudmila cross physical exercise, frequency, days per week no Lyudmila Emerson caffeine use, averag e drinks per day yes Lyudmila Emerson smoking, year quit 1997 Lyudmila yoon number of years as a smoker 25 a yLudmila Emerson smoking history, tot al pack/day 2 Lyudmila Emerson cigarette use yes Lyudmila Angeles caruso number of grandchildren Shamir Castellon NP alcohol use no Allie Ravinder [place] social history E&M Marital Statu s: L mora with family/friends E thnicity: P atmilton is a former smoker. Smoking History: P atmilton is a former smoker. Allie Ravinder BEAD MAKER social history reviewed E&M revi ewed - no changes required Allie Ravinder BEAD MAKER physical exercise, frequency, days per week no Sade Barrera caffeine use, averag e drinks per day yes Sade Barrera smoking, year quit 1997 Sade riddle number of years as a smoker 25 a Sade Barrera smoking history, tot al pack/day 2 Sade Barrera cigarette use yes Sade nolasco smoking status Former smoker Sade herr number of grandchildren Vanessa Barney MD alcohol use no Vanessa quach MD social history E&M Marital Statu s: Joy velazco with family/friends E thnicity: P alison is a former smoker. Smoking History: P alison is a former smoker. Vanessa Barney MD social history reviewed E&M revi ewed - no changes required Vanessa Barney MD physical exercise, frequency, days per week no Sade Barrera caffeine use, averag e drinks per day yes Sade Barrera smoking, year quit 1997 Sade riddle number of years as a smoker 25 a Sade Barrera smoking history, tot al pack/day 2 Sade Matuteer cigarette use yes Sade nolasco smoking status Former smoker Sade garciaelder social history E&M Marital Statu s: L mora with family/friends E thnicity: P atient is a former smoker. Smoking History: P atient is a former smoker. Haris Webster social history reviewed E&M revi ewed - no changes required Haris Webster physical exercise, frequency, days per week no Andrea Ramsey caffeine use, averag e drinks per day yes Andrea Ramsey smoking, year quit 1997 AndreaFarzaneh Dawkinsenson number of years as a smoker 25 a Andrea Ramsey smoking history, tot al pack/day 2 Andrea Ramsey cigarette use yes Andrea paul smoking status Former smoker Andrea Hidalgo social history E&M Marital Statu s: L mora with family/friends E thnicity: P atient is a former smoker. Smoking History: P atient is a former smoker. Shamir Palacios MD social history reviewed E&M revi ewed - no changes required Shamir Palacios MD physical exercise, frequency, days per week no Lyudmila Emerson caffeine use, averag e drinks per day yes Lyudmila Emerson smoking, year quit 1997 Lyudmila yoon number of years as a smoker 25 a Lyudmila Emerson smoking history, tot al pack/day 2 Lyudmila Emerson cigarette use yes Lyudmila caruso smoking status Former smoker Lyudmila cross social history E&M Marital Statu s: L mora with family/friends E thnicity: P atient is a former smoker. Smoking History: P atient is a former smoker. Shamir Palacios MD social history reviewed E&M revi ewed - no changes required Shamir Palacios MD physical exercise, frequency, days per week no Lyudmila Ki alcohol use, average drinks per day none Lyudmila Emerson alcohol use no Lyudmila Kimo l caffeine use, averag e drinks per day yes Lyudmila Ki smoking, year quit 1997 Lyudmila yoon number of years as a smoker 25 a Lyudmila Ki smoking history, tot al pack/day 2 Lyudmila Emerson cigarette use yes Lyudmila Angeles ll smoking status Former smoker Lyudmila March cross social history E&M Marital Statu s: L mora with family/friends E thnicity: Eli rosas is a former smoker. Smoking History: Eli rosas is a former smoker. Shamir Palacios MD social history reviewed E&M revi ewed - no changes required Shamir Palacios MD physical exercise, frequency, days per week no Flavia Rossy alcohol use, average drinks per day none Flavia Rossy alcohol use no Flavia Rossy caffeine use, averag e drinks per day yes Flavia Rossy smoking, year quit 1997 Flavia Martin s number of years as a smoker 25 a Flavia Rossy smoking history, tot al pack/day 2 Flavia Rossy cigarette use yes Flavia Rossy smoking status Former smoker Flavia Rossy social history E&M Marital Statu s: L mora with family/friends E thnicity: Eli rosas is a former smoker. Smoking History: Eli rosas is a former smoker. Shamir Palacios MD social history reviewed E&M revi ewed - no changes required Shamir Palacios MD physical exercise, frequency, days per week no Andrea Ramsey alcohol use, average drinks per day none Andrea Ramsey alcohol use no Andrea Malone nson caffeine use, averag e drinks per day yes Andrea Ramsey smoking, year quit 1997 Andrea Ramsey number of years as a smoker 25 a Andrea Ramsey smoking history, tot al pack/day 2 Andrea Ramsey cigarette use yes Andrea stubbson smoking status Former smoker Andrea Hidalgo social history reviewed E&M revi ewed - no changes required Shamir Palacios MD physical exercise, frequency, days per week no Sade Barrera alcohol use, average drinks per day none Sade Barrera alcohol use no Sade ordaz caffeine use, averag e drinks per day yes Sade Barrera smoking, year quit 1997 Sade riddle number of years as a smoker 25 a Sade Barrera smoking history, tot al pack/day 2 Sade Barrera cigarette use yes Sade nolasco smoking status Former smoker Sade herr number of grandchildren Shamir Palacios MD U juan Palacios MD social history reviewed E&M revi ewed - no changes required Shamir Palacios MD physical exercise, frequency, days per week no Angela Luna alcohol use, average drinks per day none Angela Luna alcohol use no Angela Luna caffeine use, averag e drinks per day yes Angela Luna smoking, year quit 1997 Angela Herring number of years as a smoker 25 a Angela Luna smoking history, tot al pack/day 2 Angela Luna cigarette use yes Angela Luna smoking status Former smoker Angela Le nn social history reviewed E&M revi ewed - no changes required Shamir Palacios MD physical exercise, frequency, days per week no AndreaFarzaneh Ramsey alcohol use, average drinks per day none AndreaFarzaneh Ramsey alcohol use no Andrea Faisal nson caffeine use, averag e drinks per day yes AndreaFarzaneh Ramsey smoking, year quit 1997 Andrea Ramsey number of years as a smoker 25 a Andrea Ramsey smoking history, tot al pack/day 2 Andrea Ramsey cigarette use yes Andrea Juancho on smoking status Former smoker Andrea [facility] social history reviewed E&M revi ewed - no changes required Shamir Palacios MD physical exercise, frequency, days per week no Angela Luna alcohol use, average drinks per day none Angela Luna alcohol use no Angela Luna caffeine use, averag e drinks per day yes Angela Luna smoking, year quit 1997 Angela Locke Nima number of years as a smoker 25 a Angela Luna smoking history, tot al pack/day 2 Angela Luna cigarette use yes Angela Luna smoking status Former smoker Angela Le boyd social history reviewed E&M revi ewed - no changes required Shamir Palacios MD physical exercise, frequency, days per week no Andrea Ramsey alcohol use, average drinks per day none Andrea Ramsey alcohol use no Andrea parision caffeine use, averag e drinks per day yes Andrea Ramsey smoking/tobacco cess ation, patient education and counseling yes Andrea Ramsey smoking, year quit 1997 Andrea Ramsey number of years as a smoker 25 a Andrea Ramsey smoking history, tot al pack/day 2 Andrea Ramsey cigarette use yes Andrea paul smoking status Former smoker Andrea Hidalgo smoking/tobacco cess ation, patient education and counseling yes Shamir Palacios MD social history E&M Marital Statu s: L mora with family/friends E thnicity: Eli rosas is a former smoker. Smoking History: Eli rosas is a former smoker. Shamir Palacios MD social history reviewed E&M gloria dubose - no changes required Shamir Palacios MD alcohol use no Sade ordaz smoking, year quit 1997 Sade riddle number of years as a smoker 25 a Sade Barrera smoking history, tot al pack/day 2 Sade Barrera cigarette use yes Sade nolasco smoking status Former smoker Shamir Palacios MD social history reviewed E&M reviewed Montez Ochoa RN social history E&M Marital Statu s: L mora with family/friends E thnicity: Shamir Palacios MD social history reviewed E&M reviewed Shamir Palacios MD physical exercise, frequency, days per week no [employer] caffeine use, averag e drinks per day yes [employer]Logic alcohol use, average drinks per day none [employer]Log[employer] number of years as a smoker 10 years or m ore LinkLog smoking status Quit [facility] MENTAL STATUS Date Observation Value Provider assessment of judgme nt and insight E&M Alert and oriented to time, place and person. Mood and affect are normal. Montez Ochoa RN assessment of judgme nt and insight E&M Alert and oriented to time, place and person. Mood and affect are normal. Shamir Palacios MD FAMILY HISTORY Family Member Condition Mother Negative FH of Coron michael Artery Disease Father Family History of Co ngestive Heart Failure: Father Family History of Co ronary Artery Disease: Father Family History of Hy pertension: Father Family History of Hy perlipidemia: INSURANCE PROVIDERS Payer name Policy type / Coverage type [employer] [place] [id number] [place] [id number] ADVANCE DIRECTIVES Name Date DISCUSSED - NO DECISION MADE TREATMENT PLAN Date Name Performer [id number],S,weight loss e ncouraged. [facility] [id number],S, H er updated medication list for this problem includes: Atorvastatin 40 Mg Tablet (Atorvastatin) ..... 1 tablet once a day [facility] [id number],S,B P 157/72 W ill monitor c sreekanth present medication regimen H er updated medication list for this problem includes: Diltiazem Hcl 240 Mg Capsule,extended Release 24hr (Diltiazem hcl) ..... Take 1 capsule by mouth once a day Losartan 50 Mg Tablet (Losartan) ..... Take 1 tablet once a day [facility] [id number],S,c hronic SOB in setting of COPD. She is O2 dependent at 3L [facility] [id number],S,C urrently rate is regular and controlled on exam. Will continue CCB. On eliquis for AC and tolerating well [facility] [id number],C, H er updated medication list for this problem includes: Atorvastatin 40 Mg Tablet (Atorvastatin) ..... 1 tablet once a day [facility] [id number],S,r emains on nebs and inhaler. Follow with pulmonary H er updated medication list for this problem includes: Ipratropium-albuterol 0.5 Mg-3 Mg(2.5 Mg Base)/3 Ml Solution For Nebulization (Ipratropium-albuterol) ..... Inhale as needed Singulair 10 Mg Tablet (Montelukast) ..... 1 tablet once a day Trelegy Ellipta 200-62.5-25 Mcg Blister With Device (Mnukdqtxeos-vpfnpaqxf-djacvpag) ..... 1 puff once a day [facility] [id number],S,B P 190/80 on arrival. On recheck was 152/74. Will continue present medication regimen and monitor T he following medications were removed from the medication list: Aspirin 81 Mg Tablet,delayed Release (dr/ec) (Aspirin) ..... Take 1 tablet by mouth once a day Her updated medication list for this problem includes: Diltiazem Hcl 240 Mg Capsule,extended Release 24hr (Diltiazem hcl) ..... Take 1 capsule daily Losartan 50 Mg Tablet (Losartan) ..... Take 1 tablet once a day [facility] [id number],S,T his is chronic in the setting of severe COPD. She is O2 dependent. Oxygen saturation was 85% on arrival, but did improve to 94% with rest. She states she is no more SOB than normal. will monitor. T he following medications were removed from the medication list: Aspirin 81 Mg Tablet,delayed Release (dr/ec) (Aspirin) ..... Take 1 tablet by mouth once a day Her updated medication list for this problem includes: Diltiazem Hcl 240 Mg Capsule,extended Release 24hr (Diltiazem hcl) ..... Take 1 capsule daily Losartan 50 Mg Tablet (Losartan) ..... Take 1 tablet once a day [facility] [id number],S,P atient rate controlled today. Diltiazem increased at recent admission. will plan tele monitor to determine afib burden. If remains in afib will plan CV in 4 weeks. Will remain on eliquis for AC. Tolerating well with no bleeding issues. T he following medications were removed from the medication list: Aspirin 81 Mg Tablet,delayed Release (dr/ec) (Aspirin) ..... Take 1 tablet by mouth once a day Orders: 9 9214 MOD 30-39min (CPT-00531) M onitor - Telemetry (Mobile Cardiac) (CPT-22877) Ana Maria Ventimiglia PIPE FINISHER [id number],B,Maintains sin Shamir Palacios MD [id number],W, Shamir Palacios MD [id number],S, Shamir Palacios MD [id number],W, Shamir Palacios MD [id number],S, Shamir Palacios MD [id number],B, Shamir Palacios MD [id number],S, O n supplemental oxygen. has COPD and emphysema. Sees pulmonary Shamir Palacios MD [id number],B, B P today: 130/86 P rior BP: 140/90 (05/03/2021) Her updated medication list for this problem includes: Losartan 50 Mg Tablet (Losartan) ..... Take 1 tablet once a day Diltiazem Hcl 120 Mg Capsule,extended Release 24hr (Diltiazem hcl) ..... Take 1 capsule daily Shamir Palacios MD [id number],B, S he has no palpitations and hasn't had any documented afib in a long time. I'll stop her eliquis and just have her take an 81mg baby aspirin daily. Her updated medication list for this problem includes: Aspirin 81 Mg Tablet,delayed Release (dr/ec) (Aspirin) ..... Take 1 tablet by mouth once a day Shamir Palacios MD [id number],S, S table on supplemental O2, Emphysema, COPD. Shamir Palacios MD [id number],S, N o chest pain Shamir Palacios MD [id number],S, Shamir Palacios MD [id number],C, C ontinue eliquis for stroke prophylaxis N SR on EKG Shamir Palacios MD [id number],C, S table on supplemental O2, Emphysema, COPD. Shamir Plaacios MD Cardiology: O n Eliquis for AC no bleeding issues/concers O n Diltiazem Peg Rivers NP Cardiology: H er updated medication list for this problem includes: Atorvastatin 40 Mg Tablet (Atorvastatin) ..... 1 tablet once a day Peg Rivers NP Cardiology: o n oxygen supplementation. N o recent exacerbations H er updated medication list for this problem includes: Ipratropium-albuterol 0.5 Mg-3 Mg(2.5 Mg Base)/3 Ml Solution For Nebulization (Ipratropium-albuterol) ..... Inhale as needed Singulair 10 Mg Tablet (Montelukast) ..... 1 tablet once a day Trelegy Ellipta 200-62.5-25 Mcg Blister With Device (Xvzynrkxbmh-nkzklkqjk-cgfjetgt) ..... 1 puff once a day Peg Rivers NP Cardiology: B P better controlled in office today. Tolerating meds well. H er updated medication list for this problem includes: Chlorthalidone 25 Mg Tablet (Chlorthalidone) ..... Take 1 tablet by mouth daily Losartan 50 Mg Tablet (Losartan) ..... Take 1 tablet by mouth twice a day Diltiazem Hcl 240 Mg Capsule,extended Release 24hr (Diltiazem hcl) ..... Take 1 capsule by mouth once a day Peg Rivers NP Cardiology:wheezing Shamir Palacios MD Cardiology:The patie nt is on a statin for pimary prevention and management of cardiovascular disease. H er updated medication list for this problem includes: Atorvastatin 40 Mg Tablet (Atorvastatin) ..... 1 tablet once a day Shamir Palacios MD Cardiology Shamir Palacios MD Cardiology Shamir Palacios MD Cardiology:suspect t hat the etiology of her sob and wheezing is from her being back in afib s table SOB and continues diltiazem for rate control and Eliquis 5mg BID with no bleeding Shamir Palacios MD Cardiology:denies Shamir Cooper Cardiology Shamir Palacios MD Cardiology: c hronic SOB in setting of COPD. She is O2 dependent at 3L [place] Shamir Palacios MD Cardiology: r emains on oxygen 3L/NC H er updated medication list for this problem includes: Ipratropium-albuterol 0.5 Mg-3 Mg(2.5 Mg Base)/3 Ml Solution For Nebulization (Ipratropium-albuterol) ..... Inhale as needed Singulair 10 Mg Tablet (Montelukast) ..... 1 tablet once a day Trelegy Ellipta 200-62.5-25 Mcg Blister With Device (Jmlbbvmcsmq-itforesje-vygbctnu) ..... 1 puff once a day Shamir Palacios MD Cardiology:s/p cardi oversion for Aflutter R emains in SR today on EKG s table SOB and continues diltiazem for rate control and Eliquis 5mg BID with no bleeding Shamir Palacios MD Cardiology:Will star t her on RPM as she says her BP is better at home B P today: 174/90 P rior BP: 136/95 (10/02/2023) Her updated medication list for this problem includes: Diltiazem Hcl 240 Mg Capsule,extended Release 24hr (Diltiazem hcl) ..... Take 1 capsule by mouth once a day Losartan 50 Mg Tablet (Losartan) ..... Take 1 tablet once a day Shamir Palacios MD Cardiology: shalom jeffers on oxygen 3L/NC H er updated medication list for this problem includes: Ipratropium-albuterol 0.5 Mg-3 Mg(2.5 Mg Base)/3 Ml Solution For Nebulization (Ipratropium-albuterol) ..... Inhale as needed Singulair 10 Mg Tablet (Montelukast) ..... 1 tablet once a day Trelegy Ellipta 200-62.5-25 Mcg Blister With Device (Vdmxtiixsnu-nqulylwpm-nvujxrrp) ..... 1 puff once a day Peg Rivers NP Cardiology: H er updated medication list for this problem includes: Atorvastatin 40 Mg Tablet (Atorvastatin) ..... 1 tablet once a day Peg Rivers NP Cardiology: O n Eliquis 5mg BID for OAC with no bleeding issues/concerns O n Diltiazem for rate control P atient is in A-flutter RVR rate in the 150s. Will have patient go to the ER/hospital and plan for cardioversion tomorrow while inpatient. Maris kilgore placed to the ER, spoke to NADYA Coffey. Peg Rivers NP Cardiology: B P today: 136/95 P rior BP: 157/72 (03/23/2023) Her updated medication list for this problem includes: Diltiazem Hcl 240 Mg Capsule,extended Release 24hr (Diltiazem hcl) ..... Take 1 capsule by mouth once a day Losartan 50 Mg Tablet (Losartan) ..... Take 1 tablet once a day Peg Rivers NP Cardiology:weight loss encourage d. Ana Maria Silver [facility] Cardiology: H er updated medication list for this problem includes: Atorvastatin 40 Mg Tablet (Atorvastatin) ..... 1 tablet once a day Ana Maria Silver [facility] Cardiology:BP 157/72 W ill monitor c sreekanth present medication regimen H er updated medication list for this problem includes: Diltiazem Hcl 240 Mg Capsule,extended Release 24hr (Diltiazem hcl) ..... Take 1 capsule by mouth once a day Losartan 50 Mg Tablet (Losartan) ..... Take 1 tablet once a day [facility] Cardiology:chronic S OB in setting of COPD. She is O2 dependent at 3L [facility] Cardiology:Currently rate is regular and controlled on exam. Will continue CCB. On eliquis for AC and tolerating well [facility] Cardiology: H er updated medication list for this problem includes: Atorvastatin 40 Mg Tablet (Atorvastatin) ..... 1 tablet once a day [facility] Cardiology:remains o n nebs and inhaler. Follow with pulmonary H er updated medication list for this problem includes: Ipratropium-albuterol 0.5 Mg-3 Mg(2.5 Mg Base)/3 Ml Solution For Nebulization (Ipratropium-albuterol) ..... Inhale as needed Singulair 10 Mg Tablet (Montelukast) ..... 1 tablet once a day Trelegy Ellipta 200-62.5-25 Mcg Blister With Device (Kgdbqyduapa-naeuleqvd-bfclxnvn) ..... 1 puff once a day [facility] Cardiology:BP 190/80 on arrival. On recheck was 152/74. Will continue present medication regimen and monitor T he following medications were removed from the medication list: Aspirin 81 Mg Tablet,delayed Release (dr/ec) (Aspirin) ..... Take 1 tablet by mouth once a day Her updated medication list for this problem includes: Diltiazem Hcl 240 Mg Capsule,extended Release 24hr (Diltiazem hcl) ..... Take 1 capsule daily Losartan 50 Mg Tablet (Losartan) ..... Take 1 tablet once a day [facility] Cardiology:This is c hronic in the setting of severe COPD. She is O2 dependent. Oxygen saturation was 85% on arrival, but did improve to 94% with rest. She states she is no more SOB than normal. will monitor. T he following medications were removed from the medication list: Aspirin 81 Mg Tablet,delayed Release (dr/ec) (Aspirin) ..... Take 1 tablet by mouth once a day Her updated medication list for this problem includes: Diltiazem Hcl 240 Mg Capsule,extended Release 24hr (Diltiazem hcl) ..... Take 1 capsule daily Losartan 50 Mg Tablet (Losartan) ..... Take 1 tablet once a day Ana Maria Adrianne [facility] Cardiology:Patient r ate controlled today. Diltiazem increased at recent admission. will plan tele monitor to determine afib burden. If remains in afib will plan CV in 4 weeks. Will remain on eliquis for AC. Tolerating well with no bleeding issues. T he following medications were removed from the medication list: Aspirin 81 Mg Tablet,delayed Release (dr/ec) (Aspirin) ..... Take 1 tablet by mouth once a day Orders: 9 9214 MOD 30-39min (CPT-39525) M onitor - Telemetry (Mobile Cardiac) (CPT-02465) Ana Marialorenzo Silver [facility] Cardiology:Maintains sinus Shamir Palacios MD Cardiology Shamir Palacios MD Cardiology Shamir Palacios MD Cardiology Shamir Palacios MD Cardiology Shamir Palacios MD Cardiology Shamir Palacios MD Cardiology: O n supplemental oxygen. has COPD and emphysema. Sees pulmonary Shamir Palacios MD Cardiology: B P today: 130/86 P rior BP: 140/90 (05/03/2021) Her updated medication list for this problem includes: Losartan 50 Mg Tablet (Losartan) ..... Take 1 tablet once a day Diltiazem Hcl 120 Mg Capsule,extended Release 24hr (Diltiazem hcl) ..... Take 1 capsule daily Shamir Palacios MD Cardiology: S he has no palpitations and hasn't had any documented afib in a long time. I'll stop her eliquis and just have her take an 81mg baby aspirin daily. Her updated medication list for this problem includes: Aspirin 81 Mg Tablet,delayed Release (dr/ec) (Aspirin) ..... Take 1 tablet by mouth once a day Shamir Palacios MD Cardiology: S table on supplemental O2, Emphysema, COPD. Shamir Palacios MD Cardiology: N o chest pain Shamir Palacios MD Cardiology follow up Shamir locke MD Cardiology follow up : C ontinue eliquis for stroke prophylaxis N SR on EKG Shamir Palacios MD Cardiology follow up : S table on supplemental O2, Emphysema, COPD. Shamir Palacios MD Cardiology Follow up Allie delgado NP Cardiology Follow up :Continue current meds. B P today: 136/68 P rior BP: 142/80 (04/24/2020) Allie Castellon NP Cardiology Follow up : S table on supplemental O2, Emphysema, COPD. Has some wheezes b/l and advised to see pulmonology. Allie Castellon NP Cardiology Follow up : C caseinue eliquis for stroke prophylaxis. Echo demonstrates EF 65%, mild TR, mild pHTN. No bleeding issues N SR on EKG Allie Castellon NP Cardiology Follow u p:Echo 10/2019 C ONCLUSIONS: 1 . Normal left ventricular systolic function. Normal left ventricular size. Normal left ventricular wall thickness. There is E to A w ave reversal consistent with impaired LV relaxation. E/E': 7.3. Left ventricular ejection fraction is measured at 65 %. 2 . The left atrium is normal in size. LA volume is 31 mL. 3 . There is non-specific thickening of the mitral valve leaflets. There is trace physiologic mitral valve regurgitation. 4 . Tri-leaflet aortic valve. Aortic valve leaflets appear structurally normal. Velocities, as well as gradients across the aortic v alve are normal. No evidence of aortic insufficiency. 5 . Normal appearing tricuspid valve leaflets. There is mild tricuspid regurgitation. Right ventricular systolic pressure is c onsistent boarderline (mild) pulmonary hypertension. IVC is dilated with partial respiratory response, consistent with m oderately elevated right atrial pressures. The RA pressure is estimated at 3.0 mmHg. Estimated peak pulmonary artery s ystolic pressure is 37.0 mmHg. Davie Powell Cardiology Follow up :Echo 10/2019 Maris ONCLUSIONS: 1 . Normal left ventricular systolic function. Normal left ventricular size. Normal left ventricular wall thickness. There is E to A w ave reversal consistent with impaired LV relaxation. E/E': 7.3. Left ventricular ejection fraction is measured at 65 %. 2 . The left atrium is normal in size. LA volume is 31 mL. 3 . There is non-specific thickening of the mitral valve leaflets. There is trace physiologic mitral valve regurgitation. 4 . Tri-leaflet aortic valve. Aortic valve leaflets appear structurally normal. Velocities, as well as gradients across the aortic v alve are normal. No evidence of aortic insufficiency. 5 . Normal appearing tricuspid valve leaflets. There is mild tricuspid regurgitation. Right ventricular systolic pressure is c onsistent boarderline (mild) pulmonary hypertension. IVC is dilated with partial respiratory response, consistent with m oderately elevated right atrial pressures. The RA pressure is estimated at 3.0 mmHg. Estimated peak pulmonary artery s ystolic pressure is 37.0 mmHg. Vanessa Barney MD Cardiology Follow up : S table on supplemental O2, Emphysema, COPD Vanessa Barney MD Cardiology Follow up :Roughly in the same range that it has been for several years, will avoid increasing meds to avoid hypotension B P today: 142/80 P rior BP: 163/72 (10/25/2019) Her updated medication list for this problem includes: Diltiazem Hcl Er(cd) Caps 120mg (Diltiazem hcl coated beads) ..... Take 1 capsule daily Accupril 20 Mg Oral Tablet (Quinapril hcl) ..... One tab. daily Vanessa Barney MD Cardiology Follow up :On supplemental oxygen. has COPD and emphysema. Sees pulmonary Vaenssa Barney MD Cardiology Follow up :Continue eliquis for stroke prophylaxis. Echo demonstrates EF 65%, mild TR, mild pHTN. No bleeding issues N SR on EKG Vanessa Barney MD Cardiology: H er updated medication list for this problem includes: Atorvastatin Calcium 40 Mg Oral Tablet (Atorvastatin calcium) ..... 1 tab daily Haris Webster Cardiology:Pt's BP i s typically better controlled. I have asked her to take her BP daily at home for about a week. Also discussed limiting sodium intake. BP today: 163/72 P rior BP: 142/80 (05/03/2019) Haris Webster Cardiology:Stable on supplementa l O2 Haris Webster Cardiology:Continue eliquis for stroke prophylaxis. Will repeat an echo and a 24 hour Holter. Haris Webster Cardiology follow up :Per marilin delaney. Shamir Palacios MD Cardiology follow up Shamir locke MD Cardiology follow up : H er updated medication list for this problem includes: Atorvastatin Calcium 40 Mg Oral Tablet (Atorvastatin calcium) ..... 1 tab daily Shamir Palacios MD Cardiology follow up : B P today: 142/80 P rior BP: 130/60 (11/01/2018) Shamir Palacios MD Cardiology follow up :On supplem ental O2. Shamir Palacios MD Cardiology follow up :Currently in sinus rhythm per EKG today. Continue eliquis. Shamir Palacios MD Cardiology follow up :in sinus today. Will check 14 day telesentry. Continue Ashlyn[place]ite. Shamir Palacios MD Cardiology follow up : B P today: 130/60 P rior BP: 166/84 (05/03/2018) Shamir Palacios MD Cardiology follow up Shamir locke MD Cardiology follow up :on supplem ental O2. Shamir Palacios MD Cardiology follow up :Cont. Ator vastatin 40mg Shamir Palacios MD Cardiology follow up:per Nurse Maris Palacios MD Cardiology follow up :She seems to run higher in office than at home. Question of white coat HTN B P today: 166/84 P rior BP: 152/77 (11/02/2017) Her updated medication list for this problem includes: Cardizem Cd 120 Mg Oral Capsule Extended Release 24 Hour (Diltiazem hcl coated beads) ..... Take 1 tab daily Accupril 20 Mg Oral Tablet (Quinapril hcl) ..... One tab. daily Shamir Palacios MD Cardiology follow up Shamir locke MD Cardiology follow up :continues in sinus rhythm but we continue her on OAC. Shamir Palacios MD Cardiology follow up:will delia r check her echo. Shamir Palacios MD Cardiology Shamir Palacios MD Cardiology: H er updated medication list for this problem includes: Atorvastatin Calcium 40 Mg Oral Tablet (Atorvastatin calcium) ..... 1 tab daily Shamir Palacios MD Cardiology:On Eliqui s. R ates controlled. Shamir Palacios MD Cardiology:On contin uous O2. F ollows with Dr. Maher. Shamir Palacios MD Cardiology: B P today: 152/77 P rior BP: 145/75 (11/04/2016) Shamir Palacios MD Cardiology Follow up : B P today: 145/75 P rior BP: 126/72 (05/05/2016) Shamir Palacios MD Cardiology Follow up :Probably due to COPD. Will check an echo in 3 months and have her f/u in one year. Shamir Palacios MD Cardiology Follow up :Continues on eliquis for OAC. Shamir Palacios MD Cardiology:Her 31 da y event monitor showed no Afib but had a few episodes of SVT. Will swtich her from Norvas to Cardizem 120mg po daily. Shamir Palacios MD Cardiology:126/72 Shamir Cooper Cardiology:Will check PFT Shamir Palacios MD Cardiology Shamir Palacios MD Cardiology:124/64 Shamir Cooper Cardiology Shamir Palacios MD Cardiology:Currently in sinus rhythm and to see if it is paroxysmal or more persistent will recommend a monitor. In the meantime will continue eliquis as OAC. Shamir Palacios MD Cardiology: H er updated medication list for this problem includes: Atorvastatin Calcium 40 Mg Tabs (Atorvastatin calcium) ..... 1 tab daily Shamir Palacios MD Cardiology:on Eliquis Shamir hawthoren MD Cardiology: B P today: 137/76 P rior BP: 138/68 (01/22/2015) Shamir Palacios MD fu Shamir Palacios MD fu:BP 138/68 Shamir Palacios MD fu:In sinus rhythm t domi. T elesentry showed sinus rhythm with occasional PAC's, rare PVC's. Shamir Palacios MD fu Shamir Palacios MD routine: H er updated medication list for this problem includes: Accupril 20 Mg Tabs (Quinapril hcl) ..... One tab. daily BP today: 151/78 Prior BP: 154/88 (02/03/2012) E chocardiogram: Normal left ventricular systolic function. Normal left ventricular size. Normal left ventricular wall thickness. There is E to A wave reversal consistent with impaired LV relaxation. Normal E/E` 12.3. Left ventricular ejection fraction is estimated at 60%. There is mild enlargement of the left atrium. No valvular abnormalities. - GCO (02/03/2012) Shamir Palacios MD routine: H er updated medication list for this problem includes: Singulair 10 Mg Tabs (Montelukast sodium) ..... 1 tab daily Spiriva Handihaler Caps (Tiotropium bromide monohydrate caps) ..... 1 puff by mouth at bedtime Advair Diskus 500-50 Mcg/dose Aepb (Fluticasone-salmeterol) ..... 1 puff by mouth twice daily BP today: 151/78 Prior BP: 154/88 (02/03/2012) Pulmonary Functions Reviewed: O 2 sat: 94 (02/17/2012) Shamir Palacios MD routine: H er updated medication list for this problem includes: Accupril 20 Mg Tabs (Quinapril hcl) ..... One tab. daily BP today: 151/78 P rior BP: 154/88 (02/03/2012) Shamir Palacios MD Hospital follow-up w ith Echo done today:154/88 H er updated medication list for this problem includes: Accupril 20 Mg Tabs (Quinapril hcl) ..... One tab. daily Shamir Palacios MD Hospital follow-up w ith Echo done today: H er updated medication list for this problem includes: Singulair 10 Mg Tabs (Montelukast sodium) ..... 1 tab daily Spiriva Handihaler Caps (Tiotropium bromide monohydrate caps) ..... 1 puff by mouth at bedtime Advair Diskus 500-50 Mcg/dose Aepb (Fluticasone-salmeterol) ..... 1 puff by mouth twice daily Shamir Palacios MD Hospital follow-up w ith Echo done today: H er updated medication list for this problem includes: Accupril 10 Mg Tabs (Quinapril hcl) ..... 1 tab daily a waiting the result of the stress Shamir Palacios MD Date Name PROBNP, N TERMINAL BASIC METABOLIC PANE L W/EGFR RPM (remote patient monitoring) Monitor - Telemetry (Mobile Cardiac) Complete Echo Holter Monitor 24 Hr Complete Echo Complete Echo Holter Monitor 24 Hr Mobile Cardiac Tele Complete Echo Complete Echo DLCO - 26099 FRC - 85818 FVC - 57513 Mobile Cardiac Tele Complete Echo Mobile Cardiac Tele Venous Doppler Bilat eral LE - Standing BASIC METABOLIC PANE L W/EGFR HISTORY OF PROCEDURES Procedure Date Procedure Name Provider Procedure Notes S tatus Complex e/m visit add on Shamir Palacios MD completed EKG Shamir Palacios MD completed EKG Shamir Palacios MD completed Holter, 24 or 48 Shamir Palacios MD com pleted EKG Shamir Palacios MD completed EKG Vanessa Barney MD completed EKG Shamir Palacios MD completed Mobile Cardiac Telem etry - Tech Shamir Palacios MD completed Mobile Cardiac Telem etry - Prof Shamir Palacios MD completed EKG Shamir Palacios MD completed SNOMED-CT: 94393505 Physical Exam, Performed: Pulse Exam of Foot Shamir Palacios MD completed SNOMED-CT: 534541065 773221 Current Medications Documented Shamir Palacios MD completed BLOOD COUNT HEMOGLOBIN Shamir Palacios MD completed FVC - 95205 Shamir Palacios MD complete d FRC - 84449 Shamir Palacios MD complete d DLCO - 41293 Shamir Plaacios MD complet ed SNOMED-CT: 16093114 Physical Exam, Performed: Pulse Exam of Foot Shamir Palacios MD completed SNOMED-CT: 103812112 712324 Current Medications Documented Shamir Palacios MD completed Event Monitor Sophia Tomlin completed SNOMED-CT: 95045849 Physical Exam, Performed: Pulse Exam of Foot Shamir Palacios MD completed EKG Shamir Palacios MD completed SNOMED-CT: 050022450 310899 Current Medications Documented Shamir Palacios MD completed SNOMED-CT: 56088046 Physical Exam, Performed: Pulse Exam of Foot Shamir Palacios MD completed SNOMED-CT: 061285820 061632 Current Medications Documented Shamir Palacios MD completed
--- NOTE | 2024-06-21 13:15 | ED_ITS ---
HPI - SOB/Dyspnea General Chief Complaint: Shortness of Breath/Dyspnea Stated Complaint: SOB History of Present Illness HPI Narrative: Patient presenting with shortness of breath, feels like COPD exacerbation Related Data Home Medications ?Medication ?Instructions ?Recorded ?Confirmed ?Last Taken ?Type acetaminophen 500 mg tablet (Pain 1,000 mg PO Q12H 06/21/24 06/21/24 06/21/24 History Reliever Extra Strength (acetaminophen)) albuterol sulfate 2.5 mg/3 mL 2.5 mg inhalation DAILY 06/21/24 06/21/24 06/21/24 History (0.083 %) solution for nebulization apixaban 5 mg tablet (Eliquis) 5 mg PO BID 06/21/24 06/21/24 06/21/24 History atorvastatin 40 mg tablet 40 mg PO DAILY 06/21/24 06/21/24 06/21/24 History budesonide 160 mcg-glycopyr 9 1 inh inhalation DAILY 06/21/24 06/21/24 Unknown History mcg-formot 4.8 mcg/actuation HFA inhaler (MYTRND) chlorthalidone 25 mg tablet 25 mg PO DAILY 06/21/24 06/21/24 06/21/24 History diltiazem HCl 240 mg 240 mg PO DAILY 06/21/24 06/21/24 06/21/24 History capsule,extended release 24 hr escitalopram oxalate 20 mg tablet 20 mg PO DAILY 06/21/24 06/21/24 06/21/24 History losartan 50 mg tablet 50 mg PO DAILY 06/21/24 06/21/24 06/21/24 History montelukast 10 mg tablet 10 mg PO QPM 06/21/24 06/21/24 06/20/24 History pantoprazole 40 mg tablet,delayed 40 mg PO Q12H 06/21/24 06/21/24 06/21/24 History release Allergies Allergy/AdvReac Type Severity Reaction Status Date / Time diphenhydramine Allergy Hives Verified 04/09/23 09:51 Penicillins Allergy Hives Verified 04/09/23 09:51 Sulfa (Sulfonamide Allergy Unknown Verified 04/09/23 09:51 Antibiotics) tetanus and diphtheria Allergy Unknown Verified 04/09/23 09:51 toxoids Review of Systems 2 Review of Systems: All systems reviewed & are unremarkable except as noted in HPI and below PMFSH Social History Social History Smoking status: Never smoker Alcohol intake: never Substance use: never Do You Feel Safe in your Home?: Yes Lack of Transportation: No Lack of Food: Never True Current Housing: I Have Housing Concerned About Future Housing: No Difficulty Paying Gas/Electric Bills: No Difficulty Paying for Meds: No Currently Unemployed: No Education: Decline to Answer Difficulty w/ Childcare or Family Care: No Spiritual care concerns: No Exam 2 Narrative: EXAMINATION OF ORGAN SYSTEMS/BODY AREAS: Constitutional: Vital signs per nursing GENERAL: Dyspnea HEAD: Normal with no signs of head trauma. EYES: EOMI, conjunctiva normal ENT: Hearing grossly intact LUNGS: Audible wheezing HEART: [Regular rate and rhythm] ABD: [Soft], [nontender to palpation] EXT: Normal range of motion SKIN: [No rashes or lesions.] NEURO: [Alert and oriented x 3. No gross focal sensory or strength deficits.] PSYCH: Normal affect Course Vital Signs Vital signs: Vital Signs Temperature 98.6 F 06/21/24 10:22 Pulse Rate 77 06/21/24 10:22 Respiratory Rate 22 H 06/21/24 10:22 Blood Pressure 126/60 06/21/24 10:22 Pulse Oximetry 95 06/21/24 10:22 Oxygen Delivery Nasal Cannula 06/21/24 10:22 Oxygen Flow Rate 2 06/21/24 10:22 Temperature 97.3 F L 06/21/24 15:50 Pulse Rate 80 06/21/24 15:50 Respiratory Rate 20 06/21/24 15:50 Blood Pressure 136/55 L 06/21/24 15:50 Pulse Oximetry 89 L 06/21/24 15:50 Oxygen Delivery Nasal Cannula 06/21/24 15:07 Oxygen Flow Rate 2 06/21/24 15:07 MDM - SOB/Dyspnea MDM Narrative Medical decision making narrative: Patient presenting with labored respirations, audible wheezing. Denies any chest pain, fevers or chills or URI symptoms. Differential includes COPD, ACS, asthma On my independent interpretation, EKG shows rate 82, normal MN, QRS, QTC, no ST elevations depressions or signs of acute ischemia or arrhythmia Chest x-ray on my independent interpretation stable and similar to prior chest x-rays, some atelectasis Respiratory swabs are negative. Labs within acceptable limits other than ABG which has CO2 retention To her all she does feel slightly better after nebulization treatments and steroids however she is still wheezing quite a bit with some labored respirations, agreeable to it admission at this time. Discussed with hospitalist Lab Data 06/21/24 10:46 06/21/24 10:46 Labs: Lab Results 06/21/24 Range/Units 10:46 WBC 7.9 (4.5-10.0) K/mm3 RBC 3.66 L (4.2-5.4) M/mm3 Hgb 10.7 L (12.0-15.0) g/dL Hct 35.7 L (37.0-47.0) % MCV 97.5 (80-100) fl MCH 29.2 (26-34) pg MCHC 30.0 L (32-36) g/dl RDW 13.6 (11.5-14.5) % Plt Count 218 (150-375) k/mm3 MPV 9.5 (7.4-10.4) fl Immature Gran % (Auto) 0.4 (0-0.5) % Neut % (Auto) 83.6 H (45.5-73.1) % Lymph % (Auto) 8.0 L (18.3-44.2) % [place] % (Auto) 5.3 (2.6-8.5) % Eos % (Auto) 2.2 (0-4.4) % Baso % (Auto) 0.5 (0.2-1.2) % Lymph # (Auto) 0.63 L (0.9-3.2) K/mm3 [place] # (Auto) 0.4 (0.1-0.6) K/mm3 Eos # (Auto) 0.2 (0-0.3) K/mm3 Baso # (Auto) 0.0 (0.0-0.1) K/mm3 Abs Immat Gran (auto) 0.03 (0.00-0.031) K/mm3 Absolute Neuts (auto) 6.6 (1.3-6.7) K/mm3 Absolute Nucleated RBC 0.000 (0.0-0.012) K/mm3 Nucleated RBC % 0.0 (0.0-0.2) % Sodium 135 L (137-145) mmol/L Potassium 3.7 (3.4-5.0) mmol/L Chloride 85 L (98-107) mmol/L Carbon Dioxide > 40 H (22-30) mmol/L Anion Gap (4-12) mmol/L BUN 20 H D (7-17) mg/dL Creatinine 1.10 H (0.7-1.0) mg/dL Estim Creat Clear Calc 38 ml/min Estimated GFR 48 L (59 - ) Glucose 121 H (65-110) mg/dL Calcium 9.5 (8.4-10.2) mg/dL Total Bilirubin 0.5 (0.2-1.3) mg/dL AST 21 (14-36) U/L ALT 12 (6-35) U/L Alkaline Phosphatase 86 (38-126) U/L Total Creatine Kinase 69 (30-135) U/L Total Protein 7.0 (6.3-8.2) g/dL Albumin 3.6 (3.5-5.1) g/dL Discharge Plan Discharge Clinical Impression: COPD exacerbation Patient Disposition: Still a Patient Condition: Stable
[2024-06-21 13:19] LABS: Creatine Kinase 69 U/L (30-135)
[2024-06-21] MEDS: IPRATROPIUM 0.5 MG/ALBUTEROL SULFATE 2.5 MG AMPUL.NEB 3 ML INHALATION ×2 (13:39→20:32)
[2024-06-21 13:45] LABS: Alveolar/Arterial O2 Gradient 48.6 mmHg; Fractional Inspired Oxygen 28 %; HCO3 ABG 47.3 mEq/l (22.0-26.0); Oxygen Content ABG 14.5 %vol (16.0-22.0); Oxygen Saturation ABG 89.9 % (95.0-100.0); Oxyhemoglobin 89.6 % THb (90.0-100.0); PO2 ABG 60.3 mmHg (80.0-100.0); PO2 FiO2 Ratio Arterial Blood 2.15 %; Total Hemoglobin 11.5 g/dL (12.0-18.0); pH ABG 7.407 (7.350-7.450)
[2024-06-21 13:47] LABS: Device NASAL CANNULA; Modified Allen's Test Pass; PCO2 ABG 76.9 mmHg (35.0-45.0); Site Drawn RIGHT RADIAL
[2024-06-21] MEDS: levoFLOXacin 750 MG/D5W 150 ML 750 MG/150 ML BAG 100 MG IVPB (15:09)
--- NOTE | 2024-06-21 15:37 | PCRCNOTE ---
ABG done at 1332, late due to getting another ABG and neb in another room in ED.
--- NOTE | 2024-06-21 15:51 | PC.NURSE ---
This patient, Malika Knight, was admitted to 3 [facility] Surg Room 322-02. Patient/family oriented to hospital policies and general routines including ID bracelet, bed and alarms, visiting hours, pain management, procedures, bathroom and other care routines, personal items, smoking policy, room service/diet, and visiting hours. Information on how to activate the Rapid Response Team has been discussed. Patient/Family are encouraged to report perceived risks to care and to ask questions if they do not understand what they are told or what they should do.
[2024-06-21 17:25] LABS: Influenza A QL RT-PCR Negative (Negative); Influenza B QL RT-PCR Negative (Negative); RSV RNA, RT-PCR Negative (Negative); SARS-CoV-2 RNA PCR Negative (Negative)
[2024-06-21 21:15] LABS: Urea Random Urine 750 MG/DL
[2024-06-21 21:17] LABS: Creatinine Urine 135.6 mg/dL; Total Protein Urine Random 15 mg/dL; Ur Ttl Prot Creatinine Ratio 0.11 mg/mg (0-0.20)
[2024-06-21 21:20] LABS: Sodium Urine Random 68 meq/L
[2024-06-21] MEDS: MELATONIN 5 MG TABLET PO (21:43)
[2024-06-21 21:58] LABS: Add Urine Microscopic? YES; Appearance Urine Clear (Clear); Bacteria Urine None Seen /hpf; Bilirubin Urine Negative (Negative); Blood Urine Negative (Negative); Color Urine Yellow (Yellow); Glucose Urine UA Negative (Negative); Ketones Urine Trace mg/dL (Negative); Leukocyte Esterase Ur Trace LEU/UL (Negative); Need Manual Microscopic Reviewed; Nitrate Urine Negative (Negative); Protein Urine Trace mg/dL (Negative); Squamous Epithelial Cell Urine Occasional /hpf (Few); Urobilinogen Urine 0.2 mg/dL (<2.0); WBC Urine 0-5 /hpf (0-3); pH Urine 7.5 (5.0-9.0)
[2024-06-22] VITALS (21 sets, daily range): BP systolic 128–135; BP diastolic 53–65; PULSE 74–91; RESP 16–24; TEMP 36.4–36.9; O2SAT 91–100
[2024-06-22] MEDS: PANTOPRAZOLE 40 MG TABLET PO ×3 (01:27→20:44)
[2024-06-22] MEDS: ACETAMINOPHEN 500 MG TABLET 1000 MG PO ×3 (01:27→20:44)
[2024-06-22] MEDS: MONTELUKAST SODIUM 10 MG TABLET PO ×2 (01:28→17:57)
[2024-06-22] MEDS: APIXABAN 5 MG TABLET PO ×3 (01:28→20:45)
[2024-06-22] MEDS: IPRATROPIUM 0.5 MG/ALBUTEROL SULFATE 2.5 MG AMPUL.NEB 3 ML INHALATION ×4 (02:31→23:51)
[2024-06-22] MEDS: SODIUM CHLORIDE 0.9% IV 1,000 ML 100 ML IV CONT ×2 (03:36→15:46)
[2024-06-22 05:41] LABS: Base Excess ABG 21.1 mEq/l (+/-2.0); Fractional Inspired Oxygen 32 %; HCO3 ABG 48.7 mEq/l (22.0-26.0); Oxygen Content ABG 13.4 %vol (16.0-22.0); Oxygen Saturation ABG 93.9 % (95.0-100.0); PO2 ABG 71.3 mmHg (80.0-100.0); PO2 FiO2 Ratio Arterial Blood 2.23 %; Total Hemoglobin 10.2 g/dL (12.0-18.0)
[2024-06-22 05:44] LABS: PCO2 ABG 75.1 mmHg (35.0-45.0); Site Drawn RIGHT RADIAL
[2024-06-22 05:45] LABS: Device NASAL CANNULA; Modified Allen's Test Pass
[2024-06-22 06:25] LABS: Basophils Percent Auto 0.2 % (0.2-1.2); Hemoglobin 9.3 g/dL (12.0-15.0); Immature Granulocyte Absolute 0.04 K/mm3 (0.00-0.031); Immature Granulocyte Percent A 0.6 % (0-0.5); Lymphocytes Absolute Auto 0.45 K/mm3 (0.9-3.2); Mean Corpuscular Hemoglobin 29.9 pg (26-34); Mean Corpuscular Volume 96.5 fl (80-100); Mean Platelet Volume 9.5 fl (7.4-10.4); Monocytes Absolute Auto 0.2 K/mm3 (0.1-0.6); Monocytes Percent Auto 3.1 % (2.6-8.5); Neutrophils Absolute Auto 5.8 K/mm3 (1.3-6.7); Neutrophils Percent Auto 89.1 % (45.5-73.1); Platelet Count Result 211 k/mm3 (150-375); Red Blood Count 3.11 M/mm3 (4.2-5.4); Red Cell Distribution Width 13.9 % (11.5-14.5); White Blood Count 6.5 K/mm3 (4.5-10.0)
[2024-06-22 06:53] LABS: Blood Urea Nitrogen 29 mg/dL (7-17); Calcium 9.1 mg/dL (8.4-10.2); Carbon Dioxide > 40 mmol/L (22-30); Chloride 86 mmol/L (98-107); Estimated CRCL calculation 36 ml/min; Estimated Glomerular Filt Rate 43; Glucose 132 mg/dL (65-110); Potassium 3.8 mmol/L (3.4-5.0); Sodium 132 mmol/L (137-145)
[2024-06-22] MEDS: dilTIAZem HCL CD 240 MG CAP.24HR PO (08:21)
[2024-06-22] MEDS: LOSARTAN POTASSIUM 50 MG TABLET PO (08:22)
[2024-06-22] MEDS: ATORVASTATIN 40 MG TABLET PO (08:22)
[2024-06-22] MEDS: CHLORTHALIDONE 25 MG TABLET PO (08:22)
[2024-06-22] MEDS: predniSONE 20 MG TABLET 40 MG PO (08:22)
[2024-06-22] MEDS: ESCITALOPRAM OXALATE 10 MG TABLET 20 MG PO (08:22)
[2024-06-22 10:33] LABS: Alveolar/Arterial O2 Gradient 122.1 mmHg; Base Excess ABG 18.8 mEq/l (+/-2.0); Fractional Inspired Oxygen 50 %; HCO3 ABG 46.9 mEq/l (22.0-26.0); Oxygen Content ABG 14.3 %vol (16.0-22.0); Oxygen Saturation ABG 98.7 % (95.0-100.0); Oxyhemoglobin 97.7 % THb (90.0-100.0); PO2 ABG 145.9 mmHg (80.0-100.0); PO2 FiO2 Ratio Arterial Blood 2.92 %; Total Hemoglobin 10.2 g/dL (12.0-18.0); pH ABG 7.393 (7.350-7.450)
[2024-06-22 10:34] LABS: Modified Allen's Test Pass; Site Drawn RIGHT RADIAL
[2024-06-22 10:35] LABS: Non-Invasive Vent Rate 16 /MIN; PCO2 ABG 78.7 mmHg (35.0-45.0)
[2024-06-22 10:36] LABS: Device NON-INVASIVE VENT; Non-Invasive Expiratory Pressure 5 CMH2O
[2024-06-22 12:44] LABS: Alveolar/Arterial O2 Gradient 144.9 mmHg; Base Excess ABG 19.1 mEq/l (+/-2.0); Fractional Inspired Oxygen 50 %; HCO3 ABG 47.5 mEq/l (22.0-26.0); Oxygen Content ABG 14.2 %vol (16.0-22.0); Oxyhemoglobin 97.3 % THb (90.0-100.0); PO2 ABG 118.9 mmHg (80.0-100.0); PO2 FiO2 Ratio Arterial Blood 2.38 %; Total Hemoglobin 10.2 g/dL (12.0-18.0); pH ABG 7.379 (7.350-7.450)
[2024-06-22 12:46] LABS: Device BIPAP; Expiratory Pressure 5 cmH2O; Modified Allen's Test Pass; Site Drawn RIGHT RADIAL
[2024-06-22 12:56] LABS: PCO2 ABG 82.4 mmHg (35.0-45.0)
[2024-06-22] MEDS: ALBUTEROL SULFATE NEB 2.5 MG/3 ML INH 15 MG INHALATION (13:50)
[2024-06-22] MEDS: methylPREDNISolone SOD SUCC 125 MG VIAL IV PUSH (14:46)
--- NOTE | 2024-06-22 15:31 | PC.NURSE ---
On 06/22/24, the MILK HANDLER, [Makayla Nesbitt ], provided care and completed [facility] documentation on this patient. I have reviewed the MILK HANDLER's documentation and agree with the findings.
--- NOTE | 2024-06-22 15:48 | P.PNIM_ITS ---
Progress Note: A&P Assessment and Plan (1) Acute on chronic respiratory failure with hypoxia and hypercapnia: Code(s): J96.21 - Acute and chronic respiratory failure with hypoxia; J96.22 - Acute and chronic respiratory failure with hypercapnia Status: Acute Assessment and Plan: - CXR with no infiltrates. - Likely related to COPD exacerbation. - Mgt as below. - Black Leather Trimmer consulted. (2) COPD exacerbation: Code(s): J44.1 - Chronic obstructive pulmonary disease with (acute) exacerbation Status: Acute Assessment and Plan: - CXR: subsegmental left basilar atelectasis. - EKG, initial: sinus rhythm, rate 82. No previous EKG available for comparison. Awaiting formal read. - ABG, initial: pH 7.407, pCO2 76.9, pO2 60.3, HCO3 47.3, O2 sat 89.9 % on 2L NC - Repeat ABG'S showing worsening hypercapnea;75>>78>>82 - Patient placed back on BIPAP. - Quill Buncher And Sorter requested to evaluate patient and BIPAP settings changed per senior climate advisor. - Patient still awake and alert, well oriented; Pt and spouse advised to think about code status as they prefer no ventilator. - Will continue to monitor ABG's and patient status. - Wean O2 as tolerated when ABG's improve. - Started on scheduled DuoNebs, Trellegy elipta and budesonide. - Started on IV steroids and we'll wean as pt improves. - started on abx: Levaquin on 06/21 - sputum culture pending. - Black Leather Trimmer consulted. (3) ADEEL (acute kidney injury): Code(s): N17.9 - Acute kidney failure, unspecified Status: Acute Assessment and Plan: - Mild; Cr 1.2 from previous 0.79 04/09/23) - Gentle IVF hydration. - Avoid nephrotoxins. - Meds dosing per renal function. (4) Atrial fibrillation: Code(s): I48.91 - Unspecified atrial fibrillation Status: Acute Assessment and Plan: - Rate well controlled. - Placed on telemetry with respiratory failure. - Continue Cardizem and Eliquis. (5) Hypertension: Code(s): I10 - Essential (primary) hypertension Status: Acute Assessment and Plan: - Well controlled. - Continue Losartan. (6) Depression: Code(s): F32.A - Depression, unspecified Status: Acute Assessment and Plan: - Continue escitalopram. Plan Diet: Regular when off BIPAP. GI Prophylaxis: Not currently indicated DVT Prophylaxis: SCDs, continue home Eliquis Lines: Peripheral Code Status: Full code Time Spent With Patient Time with patient: 15 - 25 minutes Subjective Date/time seen: 06/22/24 13:48 Patient on BIPAP but awake and alert, well oriented, denies acute distress. Interval history: Patient calm on BIPAP and appears to be in no acute distress. Admitted for acute on chronic hypoxic hypercapnic respiratory failure, COPD exacerbation. Review of Systems Review of Systems: All systems reviewed & are unremarkable except as noted in HPI and below Exam Narrative: General: Currently on BIPAP but awake and alert, verbal. HEENT: Atraumatic, PERRL, EOM, moist mucosa. NECK: Supple. Lungs: Diminished bilaterally. Heart: Irregularly irregular, no murmurs. Abdomen: Soft, non-tender, non-distended, obese, +ve BS X4 Quadrants. Extremities: Acyanotic, no edema. Skin: Warm and dry. No lesions noted. Neuro: Well oriented, no focal neuro deficits noted. Psych: Calm and co-operative. Objective Data Vital Signs Vital Signs: Vital Signs - 24 hr 06/21/24 15:50 06/21/24 20:32 06/21/24 20:39 Temperature 97.3 F L Pulse Rate 80 83 Respiratory Rate 20 20 Blood Pressure 136/55 L Pulse Oximetry 89 L 96 Oxygen Delivery Nasal Cannula Oxygen Flow Rate 4 Fraction of Inspired Oxygen 06/21/24 20:42 06/21/24 21:00 06/21/24 22:35 Temperature 96.8 F L Pulse Rate 85 83 Respiratory Rate 20 20 18 Blood Pressure 131/68 Pulse Oximetry 97 96 Oxygen Delivery BiPAP Oxygen Flow Rate Fraction of Inspired Oxygen 06/22/24 02:31 06/22/24 02:32 06/22/24 02:38 Temperature Pulse Rate 75 75 76 Respiratory Rate 22 H 20 20 Blood Pressure Pulse Oximetry 97 Oxygen Delivery BiPAP Oxygen Flow Rate Fraction of Inspired Oxygen 06/22/24 04:50 06/22/24 08:20 06/22/24 08:54 Temperature 97.8 F Pulse Rate 82 83 Respiratory Rate 16 17 Blood Pressure 134/60 Pulse Oximetry 95 95 Oxygen Delivery BiPAP BiPAP Oxygen Flow Rate Fraction of Inspired Oxygen 06/22/24 08:54 06/22/24 08:54 06/22/24 09:02 Temperature Pulse Rate 83 77 Respiratory Rate 17 18 Blood Pressure Pulse Oximetry 95 Oxygen Delivery BiPAP Oxygen Flow Rate Fraction of Inspired Oxygen 50 06/22/24 12:38 06/22/24 13:50 06/22/24 13:50 Temperature Pulse Rate 74 74 74 Respiratory Rate 20 24 H 24 H Blood Pressure Pulse Oximetry 97 91 Oxygen Delivery BiPAP BiPAP Oxygen Flow Rate Fraction of Inspired Oxygen 06/22/24 14:00 06/22/24 15:05 06/22/24 15:05 Temperature 97.6 F Pulse Rate 82 82 82 Respiratory Rate 16 22 H 22 H Blood Pressure 129/65 Pulse Oximetry 100 95 Oxygen Delivery BiPAP Oxygen Flow Rate Fraction of Inspired Oxygen Intake/Output Intake/Output: Intake & Output 06/19/24 06/20/24 06/21/24 06/22/24 23:59 23:59 23:59 23:59 Intake Total 1172 1440 Output Total 200 Balance 1172 1240 Meds/Results Medications: Active Medications Generic Name Dose Route Start Last Admin Trade Name Freq PRN Reason Stop Dose Admin Acetaminophen 1,000 mg 06/21/24 22:35 06/22/24 08:21 Acetaminophen 500 Mg Tablet PO 1,000 mg Q12HR MIRIAN Administration Albuterol/Ipratropium 3 ml 06/22/24 16:00 06/22/24 15:05 Ipratropium 0.5 Mg/Albuterol Sulfate 2.5 Mg Ampul.Neb 3 Ml INHALATION Not Given Q4HRT [facility] Apixaban 5 mg 06/21/24 22:40 06/22/24 08:23 Apixaban 5 Mg Tablet PO 5 mg Q12HR MIRIAN Administration Atorvastatin Calcium 40 mg 06/22/24 09:00 06/22/24 08:22 Atorvastatin 40 Mg Tablet PO 40 mg DAILY MIRIAN Administration Budesonide 0.5 mg 06/22/24 20:00 Budesonide Respule Neb 0.5 Mg/2 Ml Amp INHALATION Q12HRT [facility] Chlorthalidone 25 mg 06/22/24 09:00 06/22/24 08:22 Chlorthalidone 25 Mg Tablet PO 25 mg DAILY MIRIAN Administration Diltiazem HCl 240 mg 06/22/24 09:00 06/22/24 08:21 Diltiazem Hcl Cd 240 Mg Cap.24hr PO 240 mg DAILY MIRIAN Administration Escitalopram Oxalate 20 mg 06/22/24 09:00 06/22/24 08:22 Escitalopram Oxalate 10 Mg Tablet PO 20 mg DAILY MIRIAN Administration Fluticasone/Umeclidinium/Vilanterol 1 puff 06/23/24 08:00 Fluticasone/Umeclidin/Vilanter 100-62.5-25 Mcg Ellipta INHALATION DAILYRT MIRIAN Levofloxacin/Dextrose 750 mg in 150 mls @ 100 mls/hr 06/21/24 15:00 06/21/24 17:41 Levaquin 750 Mg/D5w 150 Ml IVPB Infused Q48H MIRIAN Infusion Sodium Chloride 1,000 mls @ 100 mls/hr 06/21/24 22:35 06/22/24 15:46 Normal Saline Iv IV CONT 100 mls/hr .Q10H MIRIAN Administration Losartan Potassium 50 mg 06/22/24 09:00 06/22/24 08:22 Losartan Potassium 50 Mg Tablet PO 50 mg DAILY MIRIAN Administration Melatonin 5 mg 06/21/24 21:00 06/21/24 21:43 Melatonin 5 Mg Tablet PO 5 mg HS MIRIAN Administration Methylprednisolone Sodium Succinate 60 mg 06/22/24 13:10 06/22/24 14:46 Methylprednisolone Sod Succ 125 Mg Vial IV PUSH Not Given Q6HR MIRIAN Montelukast Sodium 10 mg 06/21/24 22:45 06/22/24 01:28 Montelukast Sodium 10 Mg Tablet PO 10 mg QPM MIRIAN Administration Pantoprazole Sodium 40 mg 06/21/24 22:35 06/22/24 08:22 Pantoprazole 40 Mg Tablet PO 40 mg Q12HR MIRIAN Administration Prednisone 40 mg 06/22/24 08:00 06/22/24 08:22 Prednisone 20 Mg Tablet PO 06/27/24 07:59 40 mg DAILY@0800 MIRIAN Administration Radiology Results: ITS Impressions Chest X-Ray 06/21/24 10:53 Impression: 1: Subsegmental left basilar atelectasis. Labs Labs: Laboratory Results - last 24 hr 06/21/24 06/21/24 06/22/24 16:35 20:56 05:25 WBC RBC Hgb Hct MCV MCH MCHC RDW Plt Count MPV Immature Gran % (Auto) Neut % (Auto) Lymph % (Auto) [place] % (Auto) Eos % (Auto) Baso % (Auto) Lymph # (Auto) [place] # (Auto) Eos # (Auto) Baso # (Auto) Abs Immat Gran (auto) Absolute Neuts (auto) Absolute Nucleated RBC Nucleated RBC % Puncture Site Right radial ABG pH 7.430 ABG pCO2 75.1 H* ABG pO2 71.3 L ABG PO2/FiO2 Ratio 2.23 ABG HCO3 48.7 H ABG O2 Saturation 93.9 L ABG O2 Content 13.4 L ABG Base Excess 21.1 A-a Gradient 69.0 Oxyhemoglobin 93.0 Total Hemoglobin 10.2 L O2 Delivery Device Nasal cannula O2 Liters/Min 3.0 Vent Rate FiO2 32 Expiratory Pressure Inspiratory Pressure Sodium Potassium Chloride Carbon Dioxide Anion Gap BUN Creatinine Estim Creat Clear Calc Estimated GFR Glucose Calcium Urine Color Yellow Urine Appearance Clear Urine pH 7.5 Ur Specific [place] 1.020 Urine Protein Trace Urine Glucose (UA) Negative Urine Ketones Trace H Ur Blood (Man) Negative Urine Nitrate Negative Urine Bilirubin Negative Urine Urobilinogen 0.2 Add Ur Microanalysis Reviewed Leukocyte Esterase Rfl Trace H Urine RBC 6-10 H Urine WBC 0-5 Ur Squamous Epith Cells Occasional Urine Bacteria None seen Urine Casts 6-10 U Random Total Protein 15 Ur Random Sodium 68 Ur Random Urea 750 Urine Creatinine 135.6 Protein/Creat Ratio 2 0.11 Influenza A (RT-PCR) Negative Influenza B (RT-PCR) Negative RSV (RT-PCR) Negative SARS-CoV-2 RNA (RT-PCR) Negative 06/22/24 06/22/24 06/22/24 05:58 10:29 12:37 WBC 6.5 RBC 3.11 L Hgb 9.3 L Hct 30.0 L MCV 96.5 MCH 29.9 MCHC 31.0 L RDW 13.9 Plt Count 211 MPV 9.5 Immature Gran % (Auto) 0.6 H Neut % (Auto) 89.1 H Lymph % (Auto) 7.0 L [place] % (Auto) 3.1 Eos % (Auto) 0.0 Baso % (Auto) 0.2 Lymph # (Auto) 0.45 L [place] # (Auto) 0.2 Eos # (Auto) 0.0 Baso # (Auto) 0.0 Abs Immat Gran (auto) 0.04 H Absolute Neuts (auto) 5.8 Absolute Nucleated RBC 0.000 Nucleated RBC % 0.0 Puncture Site Right radial Right radial ABG pH 7.393 7.379 ABG pCO2 78.7 H* 82.4 H* ABG pO2 145.9 H 118.9 H ABG PO2/FiO2 Ratio 2.92 2.38 ABG HCO3 46.9 H 47.5 H ABG O2 Saturation 98.7 98.0 ABG O2 Content 14.3 L 14.2 L ABG Base Excess 18.8 19.1 A-a Gradient 122.1 144.9 Oxyhemoglobin 97.7 97.3 Total Hemoglobin 10.2 L 10.2 L O2 Delivery Device Non-invasive vent Bipap O2 Liters/Min Not Reportable Not Reportable Vent Rate 16 FiO2 50 50 Expiratory Pressure 5 5 Inspiratory Pressure Not Reportable Not Reportable Sodium 132 L Potassium 3.8 Chloride 86 L Carbon Dioxide > 40 H Anion Gap BUN 29 H Creatinine 1.20 H Estim Creat Clear Calc 36 Estimated GFR 43 L Glucose 132 H Calcium 9.1 Urine Color Urine Appearance Urine pH Ur Specific [place] Urine Protein Urine Glucose (UA) Urine Ketones Ur Blood (Man) Urine Nitrate Urine Bilirubin Urine Urobilinogen Add Ur Microanalysis Leukocyte Esterase Rfl Urine RBC Urine WBC Ur Squamous Epith Cells Urine Bacteria Urine Casts U Random Total Protein Ur Random Sodium Ur Random Urea Urine Creatinine Protein/Creat Ratio 2 Influenza A (RT-PCR) Influenza B (RT-PCR) RSV (RT-PCR) SARS-CoV-2 RNA (RT-PCR) Quality VTE Prophylaxis VTE prophylaxis: mechanical ordered and pharmacologic ordered Hospitalist MIPS Advance Care Plan I have confirmed that the patient's Advanced Care Plan is present, code status is documented, or surrogate decision maker is listed in patient medical record.: Yes Medication Reconciliation I have utilized all available resources to obtain, update and review the patien ts current medications (includes all prescriptions, OTC, herbals, cannabis, and nutritional supplements).: Yes
[2024-06-22] MEDS: methylPREDNISolone SOD SUCC 125 MG VIAL 60 MG IV PUSH (17:57)
[2024-06-22] MEDS: BUDESONIDE RESPULE NEB 0.5 MG/2 ML AMP INHALATION (19:44)
[2024-06-22] MEDS: MELATONIN 5 MG TABLET PO (20:44)
[2024-06-23] VITALS (34 sets, daily range): BP systolic 104–133; BP diastolic 44–71; PULSE 75–160; RESP 16–24; TEMP 36.4–37.2; O2SAT 91–100
[2024-06-23] MEDS: methylPREDNISolone SOD SUCC 125 MG VIAL 60 MG IV PUSH ×4 (00:04→21:00)
[2024-06-23] MEDS: ONDANSETRON INJ 4 MG/2 ML VIAL IV PUSH (02:36)
[2024-06-23] MEDS: IPRATROPIUM 0.5 MG/ALBUTEROL SULFATE 2.5 MG AMPUL.NEB 3 ML INHALATION ×5 (04:05→20:02)
[2024-06-23] MEDS: SODIUM CHLORIDE 0.9% IV 1,000 ML 75 ML IV CONT (04:57)
[2024-06-23] MEDS: FUROSEMIDE INJ 40 MG/4 ML VIAL 10 MG IV PUSH (06:35)
[2024-06-23 07:08] LABS: Alveolar/Arterial O2 Gradient 126.4 mmHg; Base Excess ABG 16.5 mEq/l (+/-2.0); Carboxyhemoglobin 1.4 % THb (0-2.0); Fractional Inspired Oxygen 40 %; HCO3 ABG 43.3 mEq/l (22.0-26.0); Methemoglobin ABG 0.3 %THb (0-1.5); Oxygen Saturation ABG 96.1 % (95.0-100.0); Oxyhemoglobin 95.3 % THb (90.0-100.0); PO2 ABG 83.1 mmHg (80.0-100.0); PO2 FiO2 Ratio Arterial Blood 2.08 %; Total Hemoglobin 10.4 g/dL (12.0-18.0); pH ABG 7.436 (7.350-7.450)
[2024-06-23 07:09] LABS: Device NON-INVASIVE VENT; Modified Allen's Test Pass; Non-Invasive Expiratory Pressure 8 CMH2O; Non-Invasive Inspiratory Pressure 24 CMH2O; Non-Invasive Vent Rate 18 /MIN; PCO2 ABG 65.8 mmHg (35.0-45.0); Site Drawn RIGHT RADIAL
[2024-06-23] MEDS: BUDESONIDE RESPULE NEB 0.5 MG/2 ML AMP INHALATION ×2 (08:18→20:02)
[2024-06-23] MEDS: FLUTICASONE/UMECLIDIN/VILANTER 100-62.5-25 MCG ELLIPTA 1 PUFF INHALATION (08:27)
[2024-06-23] MEDS: LOSARTAN POTASSIUM 50 MG TABLET PO (08:48)
[2024-06-23] MEDS: ACETAMINOPHEN 500 MG TABLET 1000 MG PO ×2 (08:48→20:21)
[2024-06-23] MEDS: PANTOPRAZOLE 40 MG TABLET PO ×2 (08:48→20:22)
[2024-06-23] MEDS: CHLORTHALIDONE 25 MG TABLET PO (08:48)
[2024-06-23] MEDS: APIXABAN 5 MG TABLET PO ×2 (08:48→20:22)
[2024-06-23] MEDS: ESCITALOPRAM OXALATE 10 MG TABLET 20 MG PO (08:48)
[2024-06-23] MEDS: dilTIAZem HCL CD 240 MG CAP.24HR PO (08:49)
[2024-06-23] MEDS: ATORVASTATIN 40 MG TABLET PO (08:49)
[2024-06-23] MEDS: METOPROLOL TARTRATE INJ 5 MG/5 ML VIAL IV PUSH ×2 (09:40→10:14)
[2024-06-23 09:58] LABS: Hematocrit 32.9 % (37.0-47.0); Hemoglobin 10.1 g/dL (12.0-15.0); Immature Granulocyte Absolute 0.07 K/mm3 (0.00-0.031); Immature Granulocyte Percent A 0.9 % (0-0.5); Lymphocytes Absolute Auto 0.23 K/mm3 (0.9-3.2); Lymphocytes Percent Auto 2.8 % (18.3-44.2); Mean Corpuscular HGB Conc 30.7 g/dl (32-36); Mean Corpuscular Hemoglobin 29.3 pg (26-34); Mean Corpuscular Volume 95.4 fl (80-100); Mean Platelet Volume 9.6 fl (7.4-10.4); Monocytes Absolute Auto 0.1 K/mm3 (0.1-0.6); Monocytes Percent Auto 1.5 % (2.6-8.5); Neutrophils Absolute Auto 7.7 K/mm3 (1.3-6.7); Neutrophils Percent Auto 94.8 % (45.5-73.1); Platelet Count Result 236 k/mm3 (150-375); Red Blood Count 3.45 M/mm3 (4.2-5.4); Red Cell Distribution Width 14.1 % (11.5-14.5); White Blood Count 8.1 K/mm3 (4.5-10.0)
[2024-06-23 10:17] LABS: Blood Urea Nitrogen 36 mg/dL (7-17); Calcium 8.8 mg/dL (8.4-10.2); Carbon Dioxide > 40 mmol/L (22-30); Chloride 91 mmol/L (98-107); Estimated CRCL calculation 34 ml/min; Estimated Glomerular Filt Rate 40; Glucose 162 mg/dL (65-110); Potassium 3.6 mmol/L (3.4-5.0); Sodium 133 mmol/L (137-145)
[2024-06-23] MEDS: dilTIAZem HCl INJ 25 MG/5 ML VIAL 10 MG IV PUSH (12:06)
--- NOTE | 2024-06-23 14:12 | PM.IMPN ---
Progress Note: A&P Assessment and Plan (1) Acute on chronic respiratory failure with hypoxia and hypercapnia: Code(s): J96.21 - Acute and chronic respiratory failure with hypoxia; J96.22 - Acute and chronic respiratory failure with hypercapnia Status: Acute Assessment and Plan: - CXR with no infiltrates. - Likely related to COPD exacerbation. - Much improved. - Mgt as below. - Chief Privacy Officer consulted. (2) COPD exacerbation: Code(s): J44.1 - Chronic obstructive pulmonary disease with (acute) exacerbation Status: Acute Assessment and Plan: - CXR: subsegmental left basilar atelectasis. - EKG, initial: sinus rhythm, rate 82. No previous EKG available for comparison. Awaiting formal read. - ABG, initial: pH 7.407, pCO2 76.9, pO2 60.3, HCO3 47.3, O2 sat 89.9 % on 2L NC - Repeat ABG'S after admission showing worsening hypercapnia;75>>78>>82 - Symptoms much improved, currently on 3L/NC for sats > 90 %. - Started on scheduled DuoNebs, Trellegy elipta and budesonide. - IV steroids decreased with improvement in symptoms. - started on abx: Levaquin on 06/21, continue. - sputum culture pending. - Chief Privacy Officer consulted. (3) ADEEL (acute kidney injury): Code(s): N17.9 - Acute kidney failure, unspecified Status: Acute Assessment and Plan: - Mild; Cr 1.2 from previous 0.79 04/09/23) - IVF discontinued with new crackles to bases. - Avoid nephrotoxins. - Meds dosing per renal function. - Continue to monitor kidney function closely. (4) Atrial fibrillation: Code(s): I48.91 - Unspecified atrial fibrillation Status: Acute Assessment and Plan: - Rate well controlled. - Placed on telemetry with respiratory failure. - Continue Cardizem and Eliquis. (5) Hypertension: Code(s): I10 - Essential (primary) hypertension Status: Acute Assessment and Plan: - Well controlled. - Continue Losartan. (6) Depression: Code(s): F32.A - Depression, unspecified Status: Acute Assessment and Plan: - Continue escitalopram. Plan Diet: Regular when off BIPAP. GI Prophylaxis: Not currently indicated DVT Prophylaxis: SCDs, continue home Eliquis Lines: Peripheral Code Status: Full code Time Spent With Patient Time with patient: 15 - 25 minutes Subjective Date/time seen: 06/23/24 10:12 Patient states she feels alright, much better from yesterday. Interval history: Patient admitted for COPD exacerbation. Initially on BIPAP but has been able to be weaned off and currently on 3L/NC. Appears comfortable and in no acute distress. Review of Systems Review of Systems: All systems reviewed & are unremarkable except as noted in HPI and below Exam Narrative: General: Awake and alert, looks comfortable. HEENT: Atraumatic, PERRL, EOM, moist mucosa. NECK: Supple. Lungs: Diminished with crackles to bases. Heart: Irregularly irregular, no murmurs. Abdomen: Soft, non-tender, non-distended, obese, +ve BS X4 Quadrants. Extremities: Acyanotic, no edema. Skin: Warm and dry. No lesions noted. Neuro: Well oriented, no focal neuro deficits noted. Psych: Calm and co-operative. Objective Data Vital Signs Vital Signs: Vital Signs - 24 hr 06/22/24 15:05 06/22/24 15:05 06/22/24 16:00 Temperature Pulse Rate 82 82 88 Respiratory Rate 22 H 22 H Blood Pressure Pulse Oximetry 95 Oxygen Delivery BiPAP Oxygen Flow Rate Fraction of Inspired Oxygen 06/22/24 19:37 06/22/24 19:45 06/22/24 19:50 Temperature 98.4 F Pulse Rate 91 79 Respiratory Rate 24 H 22 H Blood Pressure 128/53 L Pulse Oximetry 99 96 Oxygen Delivery Nasal Cannula Oxygen Flow Rate 4 Fraction of Inspired Oxygen 06/22/24 20:00 06/22/24 20:00 06/22/24 20:00 Temperature 98.1 F Pulse Rate 86 87 Respiratory Rate 22 H Blood Pressure 135/54 L Pulse Oximetry 96 Oxygen Delivery BiPAP Oxygen Flow Rate Fraction of Inspired Oxygen 40 06/22/24 20:02 06/22/24 21:00 06/22/24 22:00 Temperature Pulse Rate 84 83 78 Respiratory Rate 22 H 23 H Blood Pressure Pulse Oximetry 98 Oxygen Delivery BiPAP Oxygen Flow Rate Fraction of Inspired Oxygen 06/22/24 23:52 06/22/24 23:55 06/23/24 00:00 Temperature 97.8 F Pulse Rate 82 80 77 Respiratory Rate 20 20 18 Blood Pressure 125/62 Pulse Oximetry 98 99 Oxygen Delivery BiPAP Oxygen Flow Rate Fraction of Inspired Oxygen 06/23/24 00:00 06/23/24 00:00 06/23/24 00:01 Temperature Pulse Rate 77 84 Respiratory Rate 20 Blood Pressure Pulse Oximetry Oxygen Delivery BiPAP Oxygen Flow Rate Fraction of Inspired Oxygen 40 06/23/24 02:00 06/23/24 04:00 06/23/24 04:00 Temperature 98.0 F Pulse Rate 82 75 Respiratory Rate 18 Blood Pressure 125/48 L Pulse Oximetry 97 Oxygen Delivery BiPAP Oxygen Flow Rate Fraction of Inspired Oxygen 40 06/23/24 04:00 06/23/24 04:06 06/23/24 04:07 Temperature Pulse Rate 78 81 81 Respiratory Rate 20 20 Blood Pressure Pulse Oximetry 97 Oxygen Delivery BiPAP Oxygen Flow Rate Fraction of Inspired Oxygen 06/23/24 06:00 06/23/24 06:26 06/23/24 06:38 Temperature Pulse Rate 84 Respiratory Rate Blood Pressure Pulse Oximetry 91 100 Oxygen Delivery Nasal Cannula BiPAP Oxygen Flow Rate 4 Fraction of Inspired Oxygen 40 06/23/24 07:10 06/23/24 07:42 06/23/24 08:21 Temperature 98.6 F Pulse Rate 78 94 97 Respiratory Rate 19 20 20 Blood Pressure 131/66 Pulse Oximetry 100 93 Oxygen Delivery BiPAP Oxygen Flow Rate Fraction of Inspired Oxygen 06/23/24 08:35 06/23/24 09:27 06/23/24 09:28 Temperature Pulse Rate 114 H 158 H 160 H Respiratory Rate 20 Blood Pressure 110/62 Pulse Oximetry Oxygen Delivery Oxygen Flow Rate Fraction of Inspired Oxygen 06/23/24 10:14 06/23/24 10:14 06/23/24 11:12 Temperature Pulse Rate 155 H 155 H 144 H Respiratory Rate 24 H Blood Pressure 133/71 Pulse Oximetry 94 Oxygen Delivery Nasal Cannula Oxygen Flow Rate 2 Fraction of Inspired Oxygen 06/23/24 11:12 06/23/24 11:17 06/23/24 11:25 Temperature 98.9 F Pulse Rate 144 H 145 H 144 H Respiratory Rate 20 20 20 Blood Pressure 113/64 Pulse Oximetry 91 Oxygen Delivery Oxygen Flow Rate Fraction of Inspired Oxygen 06/23/24 12:00 Temperature Pulse Rate Respiratory Rate Blood Pressure Pulse Oximetry 93 Oxygen Delivery Nasal Cannula Oxygen Flow Rate 3 Fraction of Inspired Oxygen Intake/Output Intake/Output: Intake & Output 06/20/24 06/21/24 06/22/24 06/23/24 23:59 23:59 23:59 23:59 Intake Total 1172 1801.7 1918.3 Output Total 200 200 Balance 1172 1601.7 1718.3 Meds/Results Medications: Active Medications Generic Name Dose Route Start Last Admin Trade Name Freq PRN Reason Stop Dose Admin Acetaminophen 1,000 mg 06/21/24 22:35 06/23/24 08:48 Acetaminophen 500 Mg Tablet PO 1,000 mg Q12HR MIRIAN Administration Albuterol/Ipratropium 3 ml 06/22/24 16:00 06/23/24 11:12 Ipratropium 0.5 Mg/Albuterol Sulfate 2.5 Mg Ampul.Neb 3 Ml INHALATION 3 ml Q4HRT MIRIAN Administration Apixaban 5 mg 06/21/24 22:40 06/23/24 08:48 Apixaban 5 Mg Tablet PO 5 mg Q12HR MIRIAN Administration Atorvastatin Calcium 40 mg 06/22/24 09:00 06/23/24 08:49 Atorvastatin 40 Mg Tablet PO 40 mg DAILY MIRIAN Administration Budesonide 0.5 mg 06/22/24 20:00 06/23/24 08:18 Budesonide Respule Neb 0.5 Mg/2 Ml Amp INHALATION 0.5 mg Q12HRT MIRIAN Administration Chlorthalidone 25 mg 06/22/24 09:00 06/23/24 08:48 Chlorthalidone 25 Mg Tablet PO 25 mg DAILY MIRIAN Administration Diltiazem HCl 240 mg 06/22/24 09:00 06/23/24 08:49 Diltiazem Hcl Cd 240 Mg Cap.24hr PO 240 mg DAILY MIRIAN Administration Escitalopram Oxalate 20 mg 06/22/24 09:00 06/23/24 08:48 Escitalopram Oxalate 10 Mg Tablet PO 20 mg DAILY MIRIAN Administration Fluticasone/Umeclidinium/Vilanterol 1 puff 06/23/24 08:00 06/23/24 08:27 Fluticasone/Umeclidin/Vilanter 100-62.5-25 Mcg Ellipta INHALATION 1 puff DAILYRT MIRIAN Administration Levofloxacin/Dextrose 750 mg in 150 mls @ 100 mls/hr 06/21/24 15:00 06/21/24 17:41 Levaquin 750 Mg/D5w 150 Ml IVPB Infused Q48H MIRIAN Infusion Sodium Chloride 1,000 mls @ 75 mls/hr 06/21/24 22:35 06/23/24 04:57 Normal Saline Iv IV CONT 75 mls/hr .[id number] MIRIAN Administration Losartan Potassium 50 mg 06/22/24 09:00 06/23/24 08:48 Losartan Potassium 50 Mg Tablet PO 50 mg DAILY MIRIAN Administration Melatonin 5 mg 06/21/24 21:00 06/22/24 20:44 Melatonin 5 Mg Tablet PO 5 mg HS MIRIAN Administration Methylprednisolone Sodium Succinate 60 mg 06/22/24 13:10 06/23/24 12:05 Methylprednisolone Sod Succ 125 Mg Vial IV PUSH 60 mg Q6HR MIRIAN Administration Montelukast Sodium 10 mg 06/21/24 22:45 06/22/24 17:57 Montelukast Sodium 10 Mg Tablet PO 10 mg QPM MIRIAN Administration Ondansetron HCl 4 mg 06/23/24 02:14 06/23/24 02:36 Ondansetron Inj 4 Mg/2 Ml Vial IV PUSH 4 mg Q6H PRN Administration Nausea And Vomiting Pantoprazole Sodium 40 mg 06/21/24 22:35 06/23/24 08:48 Pantoprazole 40 Mg Tablet PO 40 mg Q12HR MIRIAN Administration Prednisone 40 mg 06/22/24 08:00 06/22/24 08:22 Prednisone 20 Mg Tablet PO 06/27/24 07:59 40 mg DAILY@0800 MIRIAN Administration Radiology Results: ITS Impressions Chest X-Ray 06/21/24 10:53 Impression: 1: Subsegmental left basilar atelectasis. Labs Labs: Laboratory Results - last 24 hr 06/23/24 06/23/24 06:54 09:51 WBC 8.1 RBC 3.45 L Hgb 10.1 L Hct 32.9 L MCV 95.4 MCH 29.3 MCHC 30.7 L RDW 14.1 Plt Count 236 MPV 9.6 Immature Gran % (Auto) 0.9 H Neut % (Auto) 94.8 H Lymph % (Auto) 2.8 L [place] % (Auto) 1.5 L Eos % (Auto) 0.0 Baso % (Auto) 0.0 L Lymph # (Auto) 0.23 L [place] # (Auto) 0.1 Eos # (Auto) 0.0 Baso # (Auto) 0.0 Abs Immat Gran (auto) 0.07 H Absolute Neuts (auto) 7.7 H Absolute Nucleated RBC 0.000 Nucleated RBC % 0.0 Puncture Site Right radial ABG pH 7.436 ABG pCO2 65.8 H* ABG pO2 83.1 ABG PO2/FiO2 Ratio 2.08 ABG HCO3 43.3 H ABG O2 Saturation 96.1 ABG O2 Content 14.0 L ABG Base Excess 16.5 A-a Gradient 126.4 Oxyhemoglobin 95.3 Carboxyhemoglobin 1.4 Methemoglobin 0.3 Reduced Hemoglobin 3.0 Total Hemoglobin 10.4 L O2 Delivery Device Non-invasive vent O2 Liters/Min Not Reportable Vent Rate 18 FiO2 40 Expiratory Pressure 8 Inspiratory Pressure 24 Sodium 133 L Potassium 3.6 Chloride 91 L Carbon Dioxide > 40 H Anion Gap BUN 36 H Creatinine 1.30 H Estim Creat Clear Calc 34 Estimated GFR 40 L Glucose 162 H Calcium 8.8 Quality VTE Prophylaxis VTE prophylaxis: mechanical ordered and pharmacologic ordered Hospitalist MIPS Advance Care Plan I have confirmed that the patient's Advanced Care Plan is present, code status is documented, or surrogate decision maker is listed in patient medical record.: Yes Medication Reconciliation I have utilized all available resources to obtain, update and review the patients current medications (includes all prescriptions, OTC, herbals, cannabis, and nutritional supplements).: Yes
[2024-06-23] MEDS: levoFLOXacin 750 MG/D5W 150 ML 750 MG/150 ML BAG 100 MG IVPB (14:39)
[2024-06-23] MEDS: MONTELUKAST SODIUM 10 MG TABLET PO (18:22)
[2024-06-23] MEDS: MELATONIN 5 MG TABLET PO (20:22)
[2024-06-24] VITALS (31 sets, daily range): BP systolic 97–127; BP diastolic 53–96; PULSE 70–101; RESP 19–28; TEMP 36.6–37.5; O2SAT 92–99
[2024-06-24] MEDS: IPRATROPIUM 0.5 MG/ALBUTEROL SULFATE 2.5 MG AMPUL.NEB 3 ML INHALATION ×4 (00:20→11:27)
[2024-06-24] MEDS: methylPREDNISolone SOD SUCC 125 MG VIAL 60 MG IV PUSH (05:20)
[2024-06-24 05:27] LABS: Hematocrit 32.4 % (37.0-47.0); Hemoglobin 9.8 g/dL (12.0-15.0); Immature Granulocyte Absolute 0.03 K/mm3 (0.00-0.031); Immature Granulocyte Percent A 0.4 % (0-0.5); Lymphocytes Percent Auto 3.7 % (18.3-44.2); Mean Corpuscular HGB Conc 30.2 g/dl (32-36); Mean Corpuscular Hemoglobin 29.2 pg (26-34); Mean Corpuscular Volume 96.4 fl (80-100); Mean Platelet Volume 9.9 fl (7.4-10.4); Monocytes Absolute Auto 0.1 K/mm3 (0.1-0.6); Monocytes Percent Auto 1.2 % (2.6-8.5); Neutrophils Absolute Auto 7.6 K/mm3 (1.3-6.7); Neutrophils Percent Auto 94.7 % (45.5-73.1); Platelet Count Result 222 k/mm3 (150-375); Red Blood Count 3.36 M/mm3 (4.2-5.4); Red Cell Distribution Width 14.1 % (11.5-14.5)
[2024-06-24 05:40] LABS: Anion Gap 4 mmol/L (4-12); Blood Urea Nitrogen 47 mg/dL (7-17); Calcium 8.3 mg/dL (8.4-10.2); Carbon Dioxide 34 mmol/L (22-30); Chloride 89 mmol/L (98-107); Estimated CRCL calculation 28 ml/min; Estimated Glomerular Filt Rate 31; Glucose 160 mg/dL (65-110); Potassium 3.6 mmol/L (3.4-5.0); Sodium 127 mmol/L (137-145)
--- NOTE | 2024-06-24 06:22 | ECG_ITS ---
Test Date: 2024-06-24 06:29:27 Measurements Intervals [place] Rate: 144 P: 255 [place]: 105 QRS: 31 QRSD: 192 T: 267 QT: 327 QTc: 506 Interpretive Statements POSSIBLE ATRIAL FLUTTER INTRAVENTRICULAR CONDUCTION DELAY [130+ ms QRS DURATION] Compared to ECG 06/21/2024 10:39:48 Intraventricular conduction delay now present Sinus rhythm no longer present Electronically Signed On 06-24-2024 12:04:45 CRIMINAL RECORDS TECHNICIAN by Ben Longoria M.D.
[2024-06-24] MEDS: dilTIAZem HCl INJ 25 MG/5 ML VIAL 10 MG IV PUSH (06:37)
[2024-06-24] MEDS: ACETAMINOPHEN 500 MG TABLET 1000 MG PO ×2 (08:01→20:59)
[2024-06-24] MEDS: ATORVASTATIN 40 MG TABLET PO (08:01)
[2024-06-24] MEDS: dilTIAZem HCL CD 240 MG CAP.24HR PO (08:01)
[2024-06-24] MEDS: LOSARTAN POTASSIUM 50 MG TABLET PO (08:01)
[2024-06-24] MEDS: CHLORTHALIDONE 25 MG TABLET PO (08:01)
[2024-06-24] MEDS: PANTOPRAZOLE 40 MG TABLET PO ×2 (08:01→20:59)
[2024-06-24] MEDS: ESCITALOPRAM OXALATE 10 MG TABLET 20 MG PO (08:01)
[2024-06-24] MEDS: APIXABAN 5 MG TABLET PO ×2 (08:01→20:59)
[2024-06-24] MEDS: BUDESONIDE RESPULE NEB 0.5 MG/2 ML AMP INHALATION (08:40)
[2024-06-24] MEDS: FLUTICASONE/UMECLIDIN/VILANTER 100-62.5-25 MCG ELLIPTA 1 PUFF INHALATION (08:50)
[2024-06-24 09:20] LABS: NT Pro B Type Natriuretic Pept 1030 pg/mL (19.9-100)
--- NOTE | 2024-06-24 11:28 | P.CONPL_ITS ---
Assessment and Plan Assessment and plan (1) COPD exacerbation: Code(s): J44.1 - Chronic obstructive pulmonary disease with (acute) exacerbation Status: Acute Assessment and Plan: Regarding her COPD the patient is followed by [facility] Pulmonary team with Elsie Powell. Patient saw them 1 month ago and at that time they had tried to switch her triple inhaler trelegy to breztri and thought that it was working better. The patient has been on home oxygen for approximately 20 years. Most recently she has been on 3 L nasal cannula 247. The patient had PFTs on 03/11/2020 with concave expiratory flow tracing, FEV1 0.88 L, 46% predicted, ratio 43%. Negative bronchodilator response, hyperinflation, moderate decreased DLCO at 42% that remain mildly decreased when adjusted for alveolar volume. CT scan of the chest on 02/16/2022 with moderate apical predominant centrilobular emphysema. On a good day the patient can walk room to room or transfer from her recliner to a wheelchair and then has severe dyspnea on exertion. The patient did perform pulmonary rehabilitation 3 years ago. The patient smokes cigarettes from age [age] at 1 pack per day for total of 32 pack years. She quit in 1995. Patient tells me she is maintained on 3 L oxygen 24-7. 06/24/24: Today the patient tells me that she is breathing back to her normal. She has minimal cough which is essentially unchanged from her normal. She does have wheezes and she says that she usually has wheezes every day even when she feels well. Currently the patient is on 3 L nasal cannula saturations 93%. Plan: I will discontinue Solu-Medrol and place the patient on prednisone 40 a day. she has received 4 days of systemic steroids and I will discontinue after tomorrow's dose. I will discontinue her nebulizers and continue her trelegy inhaler 100. I will discontinue nebulized budesonide as she will be on the trelegy inhaler. patient had a tachyarrhythmia with AFib and RVR and I will place her on p.r.n. levalbuterol rescue. patient tells me she has difficulty coughing up her phlegm and I will initiate guaifenesin 1200 mg p.o. b.i.d. and a Cornet flutter valve. Goal saturation 90-94%. Adjust oxygen accordingly. Discussed with Dr. Awad, will follow with you. (2) Acute on chronic respiratory failure with hypoxia and hypercapnia: Code(s): J96.21 - Acute and chronic respiratory failure with hypoxia; J96.22 - Acute and chronic respiratory failure with hypercapnia Status: Acute Assessment and Plan: Patient has a history of COPD with chronic hypoxemic respiratory failure and chronic hypercarbic respiratory failure. Patient presented with a serum bicarbonate greater than 40 and an ABG of 7.41/77/60 On 2 L nasal cannula. Patient has COPD with chronic hypercarbic respiratory failure. Patient would benefit from a noninvasive ventilator to prevent further hospitalizations and deterioration. Patient was initially placed on BiPAP but she can not tolerate this with the high pressures, high leak and inability to sleep well with this. 06/24/24: When I enter the room the patient was on BiPAP rate of 18, pressures 24/8, inspiratory time 0.8, rise of 3 and 30% FiO2 with saturations 93%. She said that she had difficulty with the BiPAP and difficulty sleeping because the pressures were so high in the leak was high. I changed her to noninvasive ventilation with the AVAPS mode and adjusting the settings to comfort resulting in a rate of 14, tidal volume 500, EPAP 5, minimal inspiratory pressure 6, maximal inspiratory pressure 25, inspiratory time 1.0, rise of 1 which is our fastest and 32% FiO2. Plan: Tonight will place on AVAPS: rate of 14, tidal volume 500, EPAP 5, minimal inspiratory pressure 6, maximal inspiratory pressure 25, inspiratory time 1.0, rise of 1 which is our fastest and 32% FiO2. I will perform an overnight oximetry and ABG prior to removal to assess oxygenation and ventilation on these settings. I have initiated home noninvasive ventilation with a director of respiratory therapy through her [facility]. History of Present Illness History of Present Illness Consult date: 06/24/24 Chief complaint: COPD exac Narrative: 06/24/2024: This is a new pulmonary consult for COPD exacerbation with chronic hypercarbic respiratory failure. 79-year-old with a history of COPD, atrial fibrillation on apixaban, hypertension, GERD, arthritis, depression. Regarding her COPD the patient is followed by [facility] Pulmonary team with Elsie barney. Patient saw them 1 month ago and at that time they had tried to switch her triple inhaler trelegy to breztri and thought that it was working better. The patient has been on home oxygen for approximately 20 years. Most recently she has been on 3 L nasal cannula 247. The patient had PFTs on 03/11/2020 with concave expiratory flow tracing, FEV1 0.88 L, 46% predicted, ratio 43%. Negative bronchodilator response, hyperinflation, moderate decreased DLCO at 42% that remain mildly decreased when adjusted for alveolar volume. CT scan of the chest on 02/16/2022 with moderate apical predominant centrilobular emphysema. On a good day the patient can walk room to room or transfer from her recliner to a wheelchair and then has severe dyspnea on exertion. The patient did perform pulmonary rehabilitation 3 years ago. The patient smokes cigarettes from age [age] at 1 pack per day for total of 32 pack years. She quit in 1995. The patient was having shortness of breath and was prescribed antibiotics by her PCP. Her shortness of breath progressed and she had a dry cough and dizziness standing up and presented to the emergency room on 06/21/2024. Her blood pressure is 126/60, saturations on 2 L were 89%. She had bilateral wheezing with white blood cell count of 7.9, eosinophils 2.2%, creatinine 1.10, ABG on 2 L nasal cannula was 7.41/77/60. Patient was treated for COPD exacerbation with noninvasive ventilation, nebulizers, IV steroids. 06/24/24: Today the patient tells me that she is breathing back to her normal. She has minimal cough which is essentially unchanged from her normal. She does have wheezes and she says that she usually has wheezes every day even when she feels well. When I enter the room the patient was on BiPAP rate of 18, pressures 24/8, inspiratory time 0.8, rise of 3 and 30% FiO2 with saturations 93%. She said that she had difficulty with the BiPAP and difficulty sleeping because the pressures were so high in the leak was high. I changed her to noninvasive ventilation with the AVAPS mode and adjusting the settings tick comfort resulting in a rate of 14, tidal volume 500, EPAP 5, minimal inspiratory pressure 6, maximal inspiratory pressure 25, inspiratory time 1.0, rise of 1 which is our fastest and 32% FiO2. Review of Systems 2 Constitutional: Constitutional: Reports no additional constitutional complaints Eyes: Eyes: Reports no additional eye complaints ENT: Reports system reviewed and no additional complaints, except as documented Cardiovascular: Cardiovascular: Reports no additional cardiovascular complaints Respiratory: Respiratory: Reports no additional respiratory complaints Gastrointestinal: Gastrointestinal: Reports no additional gastrointestinal complaints Musculoskeletal: Musculoskeletal: Reports no additional musculoskeletal complaints Neurologic: Reports system reviewed and no additional complaints, except as documented Psychiatric: Psychiatric: Reports no additional psychiatric complaints Endocrine: Endocrine: Reports no additional endocrine complaints Hematologic/Lymphatic: Hematologic/Lymphatic: Reports no additional hematologic/lymphatic complaints Allergic/Immunologic: Allergic/Immunologic: Reports no additional allergic/immunologic complaints [facility] Past Medical History Medical History (Updated 06/22/24 @ 16:17 by Jerrod Awad NP) Depression Arthritis Chronic diarrhea GERD (gastroesophageal reflux disease) Hypertension Atrial fibrillation COPD (chronic obstructive pulmonary disease) Surgical History Surgical History History of hysterectomy History of tonsillectomy Social History Social History Smoking status: Never smoker Alcohol intake: never Substance use: never Do You Feel Safe in your Home?: Yes Lack of Transportation: No Lack of Food: Never True Current Housing: I Have Housing Concerned About Future Housing: No Difficulty Paying Gas/Electric Bills: No Difficulty Paying for Meds: No Currently Unemployed: No Education: Decline to Answer Difficulty w/ Childcare or Family Care: No Spiritual care concerns: No Meds Home Medications and Allergies Home Medications ?Medication ?Instructions ?Recorded ?Confirmed ?Type acetaminophen 500 mg tablet (Pain 1,000 mg PO Q12H 06/21/24 06/21/24 History Reliever Extra Strength (acetaminophen)) albuterol sulfate 2.5 mg/3 mL 2.5 mg inhalation DAILY 06/21/24 06/21/24 History (0.083 %) solution for nebulization apixaban 5 mg tablet (Eliquis) 5 mg PO BID 06/21/24 06/21/24 History atorvastatin 40 mg tablet 40 mg PO DAILY 06/21/24 06/21/24 History budesonide 160 mcg-glycopyr 9 1 inh inhalation DAILY 06/21/24 06/21/24 History mcg-formot 4.8 mcg/actuation HFA inhaler (Breztri Aerosphere) chlorthalidone 25 mg tablet 25 mg PO DAILY 06/21/24 06/21/24 History diltiazem HCl 240 mg 240 mg PO DAILY 06/21/24 06/21/24 History capsule,extended release 24 hr escitalopram oxalate 20 mg tablet 20 mg PO DAILY 06/21/24 06/21/24 History losartan 50 mg tablet 50 mg PO DAILY 06/21/24 06/21/24 History montelukast 10 mg tablet 10 mg PO QPM 06/21/24 06/21/24 History pantoprazole 40 mg tablet,delayed 40 mg PO Q12H 06/21/24 06/21/24 History release Allergies Allergy/AdvReac Type Severity Reaction Status Date / Time diphenhydramine Allergy Hives Verified 04/09/23 09:51 Penicillins Allergy Hives Verified 04/09/23 09:51 Sulfa (Sulfonamide Allergy Unknown Verified 04/09/23 09:51 Antibiotics) tetanus and diphtheria Allergy Unknown Verified 04/09/23 09:51 toxoids Vital Signs Vital Signs - 24 hr 06/23/24 12:00 06/23/24 12:00 06/23/24 14:00 Temperature Pulse Rate 118 H 88 Respiratory Rate Blood Pressure Pulse Oximetry 93 Oxygen Delivery Nasal Cannula Oxygen Flow Rate 3 Fraction of Inspired Oxygen 06/23/24 15:42 06/23/24 15:42 06/23/24 15:56 Temperature Pulse Rate 81 81 82 Respiratory Rate 20 20 20 Blood Pressure Pulse Oximetry 95 Oxygen Delivery Nasal Cannula Oxygen Flow Rate 2 Fraction of Inspired Oxygen 06/23/24 15:57 06/23/24 16:00 06/23/24 16:00 Temperature 37.0 C Pulse Rate 83 86 Respiratory Rate 16 Blood Pressure 111/46 L Pulse Oximetry 93 95 Oxygen Delivery Nasal Cannula Oxygen Flow Rate 4 Fraction of Inspired Oxygen 06/23/24 18:00 06/23/24 20:00 06/23/24 20:00 Temperature 36.8 C Pulse Rate 86 75 Respiratory Rate 18 Blood Pressure 110/44 L Pulse Oximetry 95 96 Oxygen Delivery Nasal Cannula Oxygen Flow Rate 3 Fraction of Inspired Oxygen 06/23/24 20:00 06/23/24 20:02 06/23/24 20:02 Temperature Pulse Rate 77 78 78 Respiratory Rate 20 20 Blood Pressure Pulse Oximetry 94 Oxygen Delivery Nasal Cannula Oxygen Flow Rate 2 Fraction of Inspired Oxygen 06/23/24 20:20 06/23/24 22:00 06/23/24 22:47 Temperature 36.4 C L Pulse Rate 75 87 77 Respiratory Rate 20 22 H Blood Pressure 104/66 Pulse Oximetry 97 Oxygen Delivery Oxygen Flow Rate Fraction of Inspired Oxygen 06/23/24 23:55 06/24/24 00:00 06/24/24 00:00 Temperature Pulse Rate 84 80 Respiratory Rate 19 Blood Pressure Pulse Oximetry 100 97 Oxygen Delivery BiPAP BiPAP Oxygen Flow Rate Fraction of Inspired Oxygen 35 06/24/24 00:20 06/24/24 00:39 06/24/24 02:00 Temperature Pulse Rate 84 80 83 Respiratory Rate 19 20 Blood Pressure Pulse Oximetry Oxygen Delivery Oxygen Flow Rate Fraction of Inspired Oxygen 06/24/24 04:00 06/24/24 04:00 06/24/24 05:01 Temperature Pulse Rate 81 86 Respiratory Rate 19 Blood Pressure Pulse Oximetry 97 Oxygen Delivery BiPAP Oxygen Flow Rate Fraction of Inspired Oxygen 30 06/24/24 05:03 06/24/24 05:04 06/24/24 05:19 Temperature 36.9 C Pulse Rate 88 87 83 Respiratory Rate 19 21 H 20 Blood Pressure 116/74 Pulse Oximetry 99 97 Oxygen Delivery BiPAP Oxygen Flow Rate Fraction of Inspired Oxygen 06/24/24 05:52 06/24/24 06:00 06/24/24 07:29 Temperature 36.9 C Pulse Rate 91 95 Respiratory Rate 20 Blood Pressure 103/54 L Pulse Oximetry 95 98 Oxygen Delivery Nasal Cannula Oxygen Flow Rate 3 Fraction of Inspired Oxygen 06/24/24 07:45 06/24/24 08:00 06/24/24 08:40 Temperature Pulse Rate 100 Respiratory Rate Blood Pressure Pulse Oximetry 98 97 Oxygen Delivery Nasal Cannula Nasal Cannula Oxygen Flow Rate 2 4 Fraction of Inspired Oxygen 36 06/24/24 08:40 06/24/24 08:56 06/24/24 09:10 Temperature Pulse Rate 99 100 100 Respiratory Rate 24 H 24 H 28 H Blood Pressure Pulse Oximetry 94 Oxygen Delivery BiPAP Oxygen Flow Rate Fraction of Inspired Oxygen 06/24/24 10:00 Temperature Pulse Rate 101 H Respiratory Rate Blood Pressure Pulse Oximetry Oxygen Delivery Oxygen Flow Rate Fraction of Inspired Oxygen Exam 2 Const: General: cooperative and comfortable Orientation/consciousness: o riented to person, oriented to place and oriented to time Other: obese HENMT: Head: normal to inspection Ears: hearing grossly normal bilaterally Eyes: General: appearance normal, both eyes and all related structures Neck: Neck: normal visual inspection Chest: Chest palpation & inspection: normal inspection of the chest Resp: Effort & Inspection: normal respiratory effort and able to speak in complete sentences Auscultation: no crackles, no rales, no rhonchi, wheezes and diminished lung sounds Other: Few end-expiratory wheezes. Cardio: Jugular venous distension: no JVD GI: Inspection: normal to inspection GI Palp: No abdominal tenderness Skin: General skin exam: normal color Neuro: General: oriented to person, oriented to place and oriented to time Extrem: General: normal to inspection Psych: Appearance: grossly normal Results Laboratory Findings 06/24/24 05:00 06/24/24 05:00 ABG, PT/INR, D-dimer: ABG ABG pH 7.436 (7.350-7.450) 06/23/24 06:54 ABG pCO2 65.8 mmHg (35.0-45.0) H* 06/23/24 06:54 ABG pO2 83.1 mmHg (80.0-100.0) 06/23/24 06:54 ABG O2 Saturation 96.1 % (95.0-100.0) 06/23/24 06:54 Abnormal lab findings: Abnormal Labs 06/21/24 06/21/24 06/21/24 10:46 13:32 20:56 RBC 3.66 L Hgb 10.7 L Hct 35.7 L MCHC 30.0 L Immature Gran % (Auto) Neut % (Auto) 83.6 H Lymph % (Auto) 8.0 L [place] % (Auto) Baso % (Auto) Lymph # (Auto) 0.63 L Abs Immat Gran (auto) Absolute Neuts (auto) ABG pCO2 76.9 H* ABG pO2 60.3 L ABG HCO3 47.3 H ABG O2 Saturation 89.9 L ABG O2 Content 14.5 L Oxyhemoglobin 89.6 L Total Hemoglobin 11.5 L Sodium 135 L Chloride 85 L Carbon Dioxide > 40 H BUN 20 H D Creatinine 1.10 H Estimated GFR 48 L Glucose 121 H Calcium NT-Pro-B Natriuret Pep Urine Ketones Trace H Leukocyte Esterase Rfl Trace H Urine RBC 6-10 H 06/22/24 06/22/24 06/22/24 05:25 05:58 10:29 RBC 3.11 L Hgb 9.3 L Hct 30.0 L MCHC 31.0 L Immature Gran % (Auto) 0.6 H Neut % (Auto) 89.1 H Lymph % (Auto) 7.0 L [place] % (Auto) Baso % (Auto) Lymph # (Auto) 0.45 L Abs Immat Gran (auto) 0.04 H Absolute Neuts (auto) ABG pCO2 75.1 H* 78.7 H* ABG pO2 71.3 L 145.9 H ABG HCO3 48.7 H 46.9 H ABG O2 Saturation 93.9 L ABG O2 Content 13.4 L 14.3 L Oxyhemoglobin Total Hemoglobin 10.2 L 10.2 L Sodium 132 L Chloride 86 L Carbon Dioxide > 40 H BUN 29 H Creatinine 1.20 H Estimated GFR 43 L Glucose 132 H Calcium NT-Pro-B Natriuret Pep Urine Ketones Leukocyte Esterase Rfl Urine RBC 06/22/24 06/23/24 06/23/24 12:37 06:54 09:51 RBC 3.45 L Hgb 10.1 L Hct 32.9 L MCHC 30.7 L Immature Gran % (Auto) 0.9 H Neut % (Auto) 94.8 H Lymph % (Auto) 2.8 L [place] % (Auto) 1.5 L Baso % (Auto) 0.0 L Lymph # (Auto) 0.23 L Abs Immat Gran (auto) 0.07 H Absolute Neuts (auto) 7.7 H ABG pCO2 82.4 H* 65.8 H* ABG pO2 118.9 H ABG HCO3 47.5 H 43.3 H ABG O2 Saturation ABG O2 Content 14.2 L 14.0 L Oxyhemoglobin Total Hemoglobin 10.2 L 10.4 L Sodium 133 L Chloride 91 L Carbon Dioxide > 40 H BUN 36 H Creatinine 1.30 H Estimated GFR 40 L Glucose 162 H Calcium NT-Pro-B Natriuret Pep Urine Ketones Leukocyte Esterase Rfl Urine RBC 06/24/24 06/24/24 04:47 05:00 RBC 3.36 L Hgb 9.8 L Hct 32.4 L MCHC 30.2 L Immature Gran % (Auto) Neut % (Auto) 94.7 H Lymph % (Auto) 3.7 L [place] % (Auto) 1.2 L Baso % (Auto) 0.0 L Lymph # (Auto) 0.30 L Abs Immat Gran (auto) Absolute Neuts (auto) 7.6 H ABG pCO2 ABG pO2 ABG HCO3 ABG O2 Saturation ABG O2 Content Oxyhemoglobin Total Hemoglobin Sodium 127 L Chloride 89 L Carbon Dioxide 34 H BUN 47 H D Creatinine 1.60 H Estimated GFR 31 L Glucose 160 H Calcium 8.3 L NT-Pro-B Natriuret Pep 1030 H Urine Ketones Leukocyte Esterase Rfl Urine RBC Diagnostic Findings Additional studies: ITS Impressions Chest X-Ray 06/21/24 10:53 Impression: 1: Subsegmental left basilar atelectasis.
[2024-06-24] MEDS: guaiFENesin 12 HR 600 MG TABCR 1200 MG PO ×2 (12:59→20:58)
--- NOTE | 2024-06-24 14:41 | P.PNIM_ITS ---
Progress Note: A&P Assessment and Plan (1) Acute on chronic respiratory failure with hypoxia and hypercapnia: Code(s): J96.21 - Acute and chronic respiratory failure with hypoxia; J96.22 - Acute and chronic respiratory failure with hypercapnia Status: Acute Assessment and Plan: - CXR with no infiltrates. - Likely related to COPD exacerbation. - Continues to improve. - Mgt as below. - Seen by Motion Graphics Designer. (2) COPD exacerbation: Code(s): J44.1 - Chronic obstructive pulmonary disease with (acute) exacerbation Status: Acute Assessment and Plan: - CXR: subsegmental left basilar atelectasis. - EKG, initial: sinus rhythm, rate 82. No previous EKG available for comparison. Awaiting formal read. - ABG, initial: pH 7.407, pCO2 76.9, pO2 60.3, HCO3 47.3, O2 sat 89.9 % on 2L NC - Repeat ABG'S after admission showing worsening hypercapnia;75>>78>>82 - Symptoms much improved, currently on 3L/NC for sats > 90 %. - Continue scheduled DuoNebs, Trellegy elipta and budesonide. - Steroids changed to PO. 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 - sputum culture pending. - Appreciate Motion Graphics Designer assistance. (3) ADEEL (acute kidney injury): Code(s): N17.9 - Acute kidney failure, unspecified Status: Acute Assessment and Plan: - Mild; Cr 1.2 from previous 0.79 04/09/23) - IVF discontinued with new crackles to bases. - Avoid nephrotoxins. - Meds dosing per renal function. - Continue to monitor kidney function closely. (4) Atrial fibrillation: Code(s): I48.91 - Unspecified atrial fibrillation Status: Acute Assessment and Plan: - Rate well controlled. - Continue telemetry. - Continue Cardizem and Eliquis. (5) Hypertension: Code(s): I10 - Essential (primary) hypertension Status: Acute Assessment and Plan: - Well controlled. - Continue Losartan. (6) Depression: Code(s): F32.A - Depression, unspecified Status: Acute Assessment and Plan: - Continue escitalopram. Plan Diet: Heart Healthy. GI Prophylaxis: Not currently indicated DVT Prophylaxis: SCDs, continue home Eliquis Lines: Peripheral Code Status: Full code Time Spent With Patient Time with patient: 15 - 25 minutes Subjective Date/time seen: 06/24/24 10:41 Patient states she's doing alright, much better from yesterday. Interval history: Patient admitted for COPD exacerbation. Initially on BIPAP but has been able to be weaned off and currently on 3L/NC. Appears comfortable and in no acute distress. Review of Systems Review of Systems: All systems reviewed & are unremarkable except as noted in HPI and below Exam Narrative: General: Awake and alert, looks comfortable. HEENT: Atraumatic, PERRL, EOM, moist mucosa. NECK: Supple. Lungs: Diminished with faint crackles to bases. Heart: Irregularly irregular, no murmurs. Abdomen: Soft, non-tender, non-distended, obese, +ve BS X4 Quadrants. Extremities: Acyanotic, no edema. Skin: Warm and dry. No lesions noted. Neuro: Well oriented, no focal neuro deficits noted. Psych: Calm and co-operative. Objective Data Vital Signs Vital Signs: Vital Signs - 24 hr 06/23/24 15:42 06/23/24 15:42 06/23/24 15:56 Temperature Pulse Rate 81 81 82 Respiratory Rate 20 20 20 Blood Pressure Pulse Oximetry 95 Oxygen Delivery Nasal Cannula Oxygen Flow Rate 2 Fraction of Inspired Oxygen 06/23/24 15:57 06/23/24 16:00 06/23/24 16:00 Temperature 98.6 F Pulse Rate 83 86 Respiratory Rate 16 Blood Pressure 111/46 L Pulse Oximetry 93 95 Oxygen Delivery Nasal Cannula Oxygen Flow Rate 4 Fraction of Inspired Oxygen 06/23/24 18:00 06/23/24 20:00 06/23/24 20:00 Temperature 98.3 F Pulse Rate 86 75 Respiratory Rate 18 Blood Pressure 110/44 L Pulse Oximetry 95 96 Oxygen Delivery Nasal Cannula Oxygen Flow Rate 3 Fraction of Inspired Oxygen 06/23/24 20:00 06/23/24 20:02 06/23/24 20:02 Temperature Pulse Rate 77 78 78 Respiratory Rate 20 20 Blood Pressure Pulse Oximetry 94 Oxygen Delivery Nasal Cannula Oxygen Flow Rate 2 Fraction of Inspired Oxygen 06/23/24 20:20 06/23/24 22:00 06/23/24 22:47 Temperature 97.5 F L Pulse Rate 75 87 77 Respiratory Rate 20 22 H Blood Pressure 104/66 Pulse Oximetry 97 Oxygen Delivery Oxygen Flow Rate Fraction of Inspired Oxygen 06/23/24 23:55 06/24/24 00:00 06/24/24 00:00 Temperature Pulse Rate 84 80 Respiratory Rate 19 Blood Pressure Pulse Oximetry 100 97 Oxygen Delivery BiPAP BiPAP Oxygen Flow Rate Fraction of Inspired Oxygen 35 06/24/24 00:20 06/24/24 00:39 06/24/24 02:00 Temperature Pulse Rate 84 80 83 Respiratory Rate 19 20 Blood Pressure Pulse Oximetry Oxygen Delivery Oxygen Flow Rate Fraction of Inspired Oxygen 06/24/24 04:00 06/24/24 04:00 06/24/24 05:01 Temperature Pulse Rate 81 86 Respiratory Rate 19 Blood Pressure Pulse Oximetry 97 Oxygen Delivery BiPAP Oxygen Flow Rate Fraction of Inspired Oxygen 30 06/24/24 05:03 06/24/24 05:04 06/24/24 05:19 Temperature 98.5 F Pulse Rate 88 87 83 Respiratory Rate 19 21 H 20 Blood Pressure 116/74 Pulse Oximetry 99 97 Oxygen Delivery BiPAP Oxygen Flow Rate Fraction of Inspired Oxygen 06/24/24 05:52 06/24/24 06:00 06/24/24 07:29 Temperature 98.4 F Pulse Rate 91 95 Respiratory Rate 20 Blood Pressure 103/54 L Pulse Oximetry 95 98 Oxygen Delivery Nasal Cannula Oxygen Flow Rate 3 Fraction of Inspired Oxygen 06/24/24 07:45 06/24/24 08:00 06/24/24 08:40 Temperature Pulse Rate 100 Respiratory Rate Blood Pressure Pulse Oximetry 98 97 Oxygen Delivery Nasal Cannula Nasal Cannula Oxygen Flow Rate 2 4 Fraction of Inspired Oxygen 36 06/24/24 08:40 06/24/24 08:56 06/24/24 09:10 Temperature Pulse Rate 99 100 100 Respiratory Rate 24 H 24 H 28 H Blood Pressure Pulse Oximetry 94 Oxygen Delivery BiPAP Oxygen Flow Rate Fraction of Inspired Oxygen 06/24/24 10:00 06/24/24 11:27 06/24/24 11:27 Temperature Pulse Rate 101 H 95 Respiratory Rate 22 H Blood Pressure Pulse Oximetry 93 Oxygen Delivery Nasal Cannula Oxygen Flow Rate 3 Fraction of Inspired Oxygen 32 06/24/24 11:35 06/24/24 11:39 06/24/24 11:51 Temperature 99.2 F Pulse Rate 97 97 Respiratory Rate 21 H 24 H Blood Pressure 112/54 L Pulse Oximetry 97 92 Oxygen Delivery Nasal Cannula Oxygen Flow Rate 4 Fraction of Inspired Oxygen Intake/Output Intake/Output: Intake & Output 06/21/24 06/22/24 06/23/24 06/24/24 23:59 23:59 23:59 23:59 Intake Total 1172 1801.7 3038.3 540 Output Total 200 300 750 Balance 1172 1601.7 2738.3 -210 Meds/Results Medications: Active Medications Generic Name Dose Route Start Last Admin Trade Name Freq PRN Reason Stop Dose Admin Acetaminophen 1,000 mg 06/21/24 22:35 06/24/24 08:01 Acetaminophen 500 Mg Tablet PO 1,000 mg Q12HR MIRIAN Administration Apixaban 5 mg 06/21/24 22:40 06/24/24 08:01 Apixaban 5 Mg Tablet PO 5 mg Q12HR MIRIAN Administration Atorvastatin Calcium 40 mg 06/22/24 09:00 06/24/24 08:01 Atorvastatin 40 Mg Tablet PO 40 mg DAILY MIRIAN Administration Chlorthalidone 25 mg 06/22/24 09:00 06/24/24 08:01 Chlorthalidone 25 Mg Tablet PO 25 mg DAILY MIRIAN Administration Diltiazem HCl 240 mg 06/22/24 09:00 06/24/24 08:01 Diltiazem Hcl Cd 240 Mg Cap.24hr PO 240 mg DAILY MIRIAN Administration Doxycycline Hyclate 100 mg 06/25/24 09:00 Doxycycline Hyclate 100 Mg Tablet PO 06/25/24 21:01 Q12HR MIRIAN Escitalopram Oxalate 20 mg 06/22/24 09:00 06/24/24 08:01 Escitalopram Oxalate 10 Mg Tablet PO 20 mg DAILY MIRIAN Administration Fluticasone/Umeclidinium/Vilanterol 1 puff 06/23/24 08:00 06/24/24 08:50 Fluticasone/Umeclidin/Vilanter 100-62.5-25 Mcg Ellipta INHALATION 1 puff DAILYRT MIRIAN Administration Guaifenesin 1,200 mg 06/24/24 12:00 06/24/24 12:59 Guaifenesin 12 Hr 600 Mg Tabcr PO 1,200 mg Q12HR MIRIAN Administration Levalbuterol HCl 0.63 mg 06/24/24 11:42 Levalbuterol Neb 1.25 Mg/3 Ml INHALATION Q6HRT PRN Wheezing Losartan Potassium 50 mg 06/22/24 09:00 06/24/24 08:01 Losartan Potassium 50 Mg Tablet PO 50 mg DAILY MIRIAN Administration Melatonin 5 mg 06/21/24 21:00 06/23/24 20:22 Melatonin 5 Mg Tablet PO 5 mg HS MIRIAN Administration Montelukast Sodium 10 mg 06/21/24 22:45 06/23/24 18:22 Montelukast Sodium 10 Mg Tablet PO 10 mg QPM MIRIAN Administration Ondansetron HCl 4 mg 06/23/24 02:14 06/23/24 02:36 Ondansetron Inj 4 Mg/2 Ml Vial IV PUSH 4 mg Q6H PRN Administration Nausea And Vomiting Pantoprazole Sodium 40 mg 06/21/24 22:35 06/24/24 08:01 Pantoprazole 40 Mg Tablet PO 40 mg Q12HR MIRIAN Administration Prednisone 40 mg 06/22/24 08:00 06/22/24 08:22 Prednisone 20 Mg Tablet PO 06/27/24 07:59 40 mg DAILY@0800 MIRIAN Administration Radiology Results: ITS Impressions Chest X-Ray 06/21/24 10:53 Impression: 1: Subsegmental left basilar atelectasis. Labs Labs: Laboratory Results - last 24 hr 06/24/24 06/24/24 04:47 05:00 WBC 8.0 RBC 3.36 L Hgb 9.8 L Hct 32.4 L MCV 96.4 MCH 29.2 MCHC 30.2 L RDW 14.1 Plt Count 222 MPV 9.9 Immature Gran % (Auto) 0.4 Neut % (Auto) 94.7 H Lymph % (Auto) 3.7 L Mercer % (Auto) 1.2 L Eos % (Auto) 0.0 Baso % (Auto) 0.0 L Lymph # (Auto) 0.30 L Mercer # (Auto) 0.1 Eos # (Auto) 0.0 Baso # (Auto) 0.0 Abs Immat Gran (auto) 0.03 Absolute Neuts (auto) 7.6 H Absolute Nucleated RBC 0.000 Nucleated RBC % 0.0 Sodium 127 L Potassium 3.6 Chloride 89 L Carbon Dioxide 34 H Anion Gap 4 BUN 47 H D Creatinine 1.60 H Estim Creat Clear Calc 28 Estimated GFR 31 L Glucose 160 H Calcium 8.3 L NT-Pro-B Natriuret Pep 1030 H Quality VTE Prophylaxis VTE prophylaxis: mechanical ordered and pharmacologic ordered Hospitalist MIPS Advance Care Plan I have confirmed that the patient's Advanced Care Plan is present, code status is documented, or surrogate decision maker is listed in patient medical record.: Yes Medication Reconciliation I have utilized all available resources to obtain, update and review the patients current medications (includes all prescriptions, OTC, herbals, cannabis, and nutritional supplements).: Yes
[2024-06-24] MEDS: SODIUM CHLORIDE 0.9% IV 1,000 ML 60 ML IV CONT (17:09)
[2024-06-24] MEDS: MONTELUKAST SODIUM 10 MG TABLET PO (17:10)
[2024-06-24] MEDS: MELATONIN 5 MG TABLET PO (20:59)
[2024-06-25] VITALS (16 sets, daily range): BP systolic 106–130; BP diastolic 57–85; PULSE 68–90; RESP 16–22; TEMP 36.2–36.8; O2SAT 90–99
[2024-06-25 05:20] LABS: Alveolar/Arterial O2 Gradient 87.5 mmHg; Base Excess ABG 12.1 mEq/l (+/-2.0); Carboxyhemoglobin 1.8 % THb (0-2.0); Fractional Inspired Oxygen 32 %; HCO3 ABG 37.5 mEq/l (22.0-26.0); Methemoglobin ABG 0.3 %THb (0-1.5); Oxygen Content ABG 14.2 %vol (16.0-22.0); Oxyhemoglobin 94.6 % THb (90.0-100.0); PCO2 ABG 53.1 mmHg (35.0-45.0); PO2 ABG 78.5 mmHg (80.0-100.0); PO2 FiO2 Ratio Arterial Blood 2.45 %; Reduced Hemoglobin 3.3 %THb (0-5.0); Total Hemoglobin 10.6 g/dL (12.0-18.0); pH ABG 7.467 (7.350-7.450)
[2024-06-25 05:54] LABS: Device OTHER DEVICE; Modified Allen's Test Pass; Site Drawn RIGHT RADIAL
[2024-06-25] MEDS: FLUTICASONE/UMECLIDIN/VILANTER 100-62.5-25 MCG ELLIPTA 1 PUFF INHALATION (07:47)
[2024-06-25] MEDS: predniSONE 20 MG TABLET 40 MG PO (08:55)
[2024-06-25] MEDS: DOXYCYCLINE HYCLATE 100 MG TABLET PO ×2 (08:55→20:51)
[2024-06-25] MEDS: LOSARTAN POTASSIUM 50 MG TABLET PO (08:55)
[2024-06-25] MEDS: ACETAMINOPHEN 500 MG TABLET 1000 MG PO ×2 (08:55→20:51)
[2024-06-25] MEDS: ESCITALOPRAM OXALATE 10 MG TABLET 20 MG PO (08:55)
[2024-06-25] MEDS: ATORVASTATIN 40 MG TABLET PO (08:55)
[2024-06-25] MEDS: guaiFENesin 12 HR 600 MG TABCR 1200 MG PO ×2 (08:55→20:51)
[2024-06-25] MEDS: dilTIAZem HCL CD 240 MG CAP.24HR PO (08:55)
[2024-06-25] MEDS: PANTOPRAZOLE 40 MG TABLET PO ×2 (08:55→20:52)
[2024-06-25] MEDS: CHLORTHALIDONE 25 MG TABLET PO (08:55)
[2024-06-25] MEDS: APIXABAN 5 MG TABLET PO ×2 (08:55→20:52)
--- NOTE | 2024-06-25 09:27 | P.PNPL_ITS ---
Progress Note: A&P Assessment and Plan (1) COPD exacerbation: Code(s): J44.1 - Chronic obstructive pulmonary disease with (acute) exacerbation Status: Acute Assessment and Plan: Regarding her COPD the patient is followed by [facility] team with Elsie Powell. Patient saw them 1 month ago and at that time they had tried to switch her triple inhaler trelegy to breztri and thought that it was working better. The patient has been on home oxygen for approximately 20 years. Most recently she has been on 3 L nasal cannula 247. The patient had PFTs on 03/11/2020 with concave expiratory flow tracing, FEV1 0.88 L, 46% predicted, ratio 43%. Negative bronchodilator response, hyperinflation, moderate decreased DLCO at 42% that remain mildly decreased when adjusted for alveolar volume. CT scan of the chest on 02/16/2022 with moderate apical predominant centrilobular emphysema. On a good day the patient can walk room to room or transfer from her recliner to a wheelchair and then has severe dyspnea on exertion. The patient did perform pulmonary rehabilitation 3 years ago. The patient smokes cigarettes from age [age] at 1 pack per day for total of 32 pack years. She quit in 1995. Patient tells me she is maintained on 3 L oxygen 24-7. 06/24/24: Today the patient tells me that she is breathing back to her normal. She has minimal cough which is essentially unchanged from her normal. She does have wheezes and she says that she usually has wheezes every day even when she feels well. Currently the patient is on 3 L nasal cannula saturations 93%. Plan: I will discontinue Solu-Medrol and place the patient on prednisone 40 a day. she has received 4 days of systemic steroids and I will discontinue after tomorrow's dose. I will discontinue her nebulizers and continue her trelegy inhaler 100. I will discontinue nebulized budesonide as she will be on the trelegy inhaler. patient had a tachyarrhythmia with AFib and RVR and I will place her on p.r.n. levalbuterol rescue. patient tells me she has difficulty coughing up her phlegm and I will initiate guaifenesin 1200 mg p.o. b.i.d. and a Cornet flutter valve. Goal saturation 90-94%. Adjust oxygen accordingly. 06/25/24: Patient tells me she is breathing back to her normal. She has no cough or phlegm production. Currently she is on 2 L nasal cannula saturations 96%. Today is day 5 of prednisone and will discontinue. Patient has received 4 days of levofloxacin and switched to doxycycline today. Plan: From a pulmonary perspective patient can be discharged on these pulmonary medications Doxycycline 100 mg p.o. b.i.d. x2 days Breztri At 2 puffs b.i.d. Rescue albuterol 2 puffs q.4 hours p.r.n. shortness of breath or wheezing Guaifenesin 1200 mg p.o. b.i.d., montelukast 10 mg p.o. q.day Oxygen per formal home O2 assessment which I have ordered. When she naps and sleeps: Home noninvasive ventilator through [facility] with: Breath rate 14, tidal volume 500, auto EPAP minimum 5, auto EPAP maximum 15, minimum pressure support 6, maximum pressure support 25, maximum pressure 50, inspiratory time 1.0 and 3 L bleed in. this has been initiated on 06/24/2024 and until she has delivery of the home machine she should wear 3 L nasal cannula at night. Follow-up with [facility], Elsie Powell, on 07/05/2024. Discussed with Dr. Awad, will sign off, call with questions. (2) Acute on chronic respiratory failure with hypoxia and hypercapnia: Code(s): J96.21 - Acute and chronic respiratory failure with hypoxia; J96.22 - Acute and chronic respiratory failure with hypercapnia Status: Acute Assessment and Plan: Patient has a history of COPD with chronic hypoxemic respiratory failure and chronic hypercarbic respiratory failure. Patient presented with a serum bicarbonate greater than 40 and an ABG of 7.41/77/60 On 2 L nasal cannula. Patient has COPD with chronic hypercarbic respiratory failure. Patient would benefit from a noninvasive ventilator to prevent further hospitalizations and deterioration. Patient was initially placed on BiPAP but she can not tolerate this with the high pressures, high leak and inability to sleep well with this. 06/24/24: When I enter the room the patient was on BiPAP rate of 18, pressures 24/8, inspiratory time 0.8, rise of 3 and 30% FiO2 with saturations 93%. She said that she had difficulty with the BiPAP and difficulty sleeping because the pressures were so high in the leak was high. I changed her to noninvasive ventilation with the AVAPS mode and adjusting the settings to comfort resulting in a rate of 14, tidal volume 500, EPAP 5, minimal inspiratory pressure 6, maximal inspiratory pressure 25, inspiratory time 1.0, rise of 1 which is our fastest and 32% FiO2. Plan: Tonight will place on AVAPS: rate of 14, tidal volume 500, EPAP 5, minimal inspiratory pressure 6, maximal inspiratory pressure 25, inspiratory time 1.0, rise of 1 which is our fastest and 32% FiO2. I will perform an overnight oximetry and ABG prior to removal to assess oxygenation and ventilation on these settings. I have initiated home noninvasive ventilation with a therapist respiratory through her [facility]. Later in the day I filled out an order form for [facility] supplies for AVAPS AE: Breath rate 14, tidal volume 500, auto EPAP minimum 5, auto EPAP maximum 15, minimum pressure support 6, maximum pressure support 25, maximum pressure 50, inspiratory time 1.0 and 3 L bleed in. 06/25/24: Patient wore the hospital noninvasive ventilation with the AVAPS mode with the above settings and said that she slept okay. The mass did seem to cause her some nose pain. On these settings the patient had an ABG prior to removal with a pH of 7.47 / 53/79. Overnight oximetry on these studies demonstrated recording duration of 5 hours and 59 minutes. Average saturation 97%. Low saturation 95%. Time with saturation less than or equal to 88% was 0 minutes. Oxygen desaturation index 0. Plan: Hospital AVAPS settings provide adequate ventilation and oxygenation. Orders for noninvasive ventilator have been sent to [facility] on 06/24/2024. We are waiting for an estimated delivery date. Patient can be discharged using 3 L nasal cannula at night while she is waiting for her home noninvasive ventilator with the above settings. Subjective Date/time seen: 06/25/24 09:27 Interval history: 06/24/2024: This is a new pulmonary consult for COPD exacerbation with chronic hypercarbic respiratory failure. 79-year-old with a history of COPD, atrial fibrillation on apixaban, hypertension, GERD, arthritis, depression. Regarding her COPD the patient is followed by [facility] team with Elsie barney. Patient saw them 1 month ago and at that time they had tried to switch her triple inhaler trelegy to breztri and thought that it was working better. The patient has been on home oxygen for approximately 20 years. Most recently she has been on 3 L nasal cannula 247. The patient had PFTs on 03/11/2020 with concave expiratory flow tracing, FEV1 0.88 L, 46% predicted, ratio 43%. Negative bronchodilator response, hyperinflation, moderate decreased DLCO at 42% that remain mildly decreased when adjusted for a lveolar volume. CT scan of the chest on 02/16/2022 with moderate apical predominant centrilobular emphysema. On a good day the patient can walk room to room or transfer from her recliner to a wheelchair and then has severe dyspnea on exertion. The patient did perform pulmonary rehabilitation 3 years ago. The patient smokes cigarettes from age [age] at 1 pack per day for total of 32 pack years. She quit in 1995. The patient was having shortness of breath and was prescribed antibiotics by her PCP. Her shortness of breath progressed and she had a dry cough and dizziness standing up and presented to the emergency room on 06/21/2024. Her blood pressure is 126/60, saturations on 2 L were 89%. She had bilateral wheezing with white blood cell count of 7.9, eosinophils 2.2%, creatinine 1.10, ABG on 2 L nasal cannula was 7.41/77/60. Patient was treated for COPD exacerbation with noninvasive ventilation, nebulizers, IV steroids. 06/24/24: Today the patient tells me that she is breathing back to her normal. She has minimal cough which is essentially unchanged from her normal. She does have wheezes and she says that she usually has wheezes every day even when she feels well. When I enter the room the patient was on BiPAP rate of 18, pressures 24/8, inspiratory time 0.8, rise of 3 and 30% FiO2 with saturations 93%. She said that she had difficulty with the BiPAP and difficulty sleeping because the pressures were so high in the leak was high. I changed her to noninvasive ventilation with the AVAPS mode and adjusting the settings tick comfort resulting in a rate of 14, tidal volume 500, EPAP 5, minimal inspiratory pressure 6, maximal inspiratory pressure 25, inspiratory time 1.0, rise of 1 which is our fastest and 32% FiO2. Later in the day I filled out an order form for [facility] medical supplies for AVAPS AE: Breath rate 14, tidal volume 500, auto EPAP minimum 5, auto EPAP maximum 15, minimum pressure support 6, maximum pressure support 25, maximum pressure 50, inspiratory time 1.0 and 3 L bleed in. 06/25/24: Patient tells me she is breathing back to her normal. She has no cough or phlegm production. Currently she is on 2 L nasal cannula saturations 96%. Patient wore the hospital noninvasive ventilation with the AVAPS mode with the above settings and said that she slept okay. The mass did seem to cause her some nose pain. On these settings the patient had an ABG prior to removal with a pH of 7.47 / 53/79. Overnight oximetry on these studies demonstrated recording duration of 5 hours and 59 minutes. Average saturation 97%. Low saturation 95%. Time with saturation less than or equal to 88% was 0 minutes. Oxygen desaturation index 0. Review of Systems Constitutional: Constitutional: Reports no additional constitutional complaints Eyes: Eyes: Reports no additional eye complaints ENT: Reports system reviewed and no additional complaints, except as documented Cardiovascular: Cardiovascular: Reports no additional cardiovascular complaints Respiratory: Respiratory: Reports no additional respiratory complaints Gastrointestinal: Gastrointestinal: Reports no additional gastrointestinal complaints Musculoskeletal: Musculoskeletal: Reports no additional musculoskeletal complaints Neurologic: Reports system reviewed and no additional complaints, except as documented Psychiatric: Psychiatric: Reports no additional psychiatric complaints Endocrine: Endocrine: Reports no additional endocrine complaints Hematologic/Lymphatic: Hematologic/Lymphatic: Reports no additional hematologic/lymphatic complaints Allergic/Immunologic: Allergic/Immunologic: Reports no additional allergic/immunologic complaints Exam Const: General: cooperative and comfortable Orientation/consciousness: oriented to person, oriented to place and oriented to time Other: obese HENMT: Head: normal to inspection Ears: hearing grossly normal bilaterally Eyes: General: appearance normal, both eyes and all related structures Neck: Neck: normal visual inspection Chest: Chest palpation & inspection: normal inspection of the chest Resp: Effort & Inspection: normal respiratory effort and able to speak in complete sentences Auscultation: no crackles, no rales, no rhonchi, wheezes and diminished lung sounds Other: Few end-expiratory wheezes. Cardio: Jugular venous distension: no JVD GI: Inspection: normal to inspection Skin: General skin exam: normal color Neuro: General: oriented to person, oriented to place and oriented to time Extrem: General: normal to inspection Psych: Appearance: grossly normal Objective Data Vital Signs Vital Signs: Vital Signs - 24 hr 06/24/24 10:00 06/24/24 11:27 06/24/24 11:27 Temperature Pulse Rate 101 H 95 Respiratory Rate 22 H Blood Pressure Pulse Oximetry 93 Oxygen Delivery Nasal Cannula Oxygen Flow Rate 3 Fraction of Inspired Oxygen 32 06/24/24 11:35 06/24/24 11:39 06/24/24 11:51 Temperature 37.3 C Pulse Rate 97 97 Respiratory Rate 21 H 24 H Blood Pressure 112/54 L Pulse Oximetry 97 92 Oxygen Delivery Nasal Cannula Oxygen Flow Rate 4 Fraction of Inspired Oxygen 06/24/24 12:00 06/24/24 14:00 06/24/24 16:00 Temperature 37.5 C Pulse Rate 97 92 92 Respiratory Rate 23 H Blood Pressure 125/96 H Pulse Oximetry 93 Oxygen Delivery Oxygen Flow Rate Fraction of Inspired Oxygen 06/24/24 16:00 06/24/24 16:00 06/24/24 18:00 Temperature Pulse Rate 89 81 Respiratory Rate Blood Pressure Pulse Oximetry 93 Oxygen Delivery Nasal Cannula Oxygen Flow Rate 3 Fraction of Inspired Oxygen 06/24/24 19:42 06/24/24 20:00 06/24/24 20:00 Temperature 36.8 C Pulse Rate 81 77 76 Respiratory Rate 22 H 20 Blood Pressure 97/53 L Pulse Oximetry 98 96 Oxygen Delivery Nasal Cannula Oxygen Flow Rate 4 Fraction of Inspired Oxygen 06/24/24 22:00 06/24/24 22:55 06/24/24 23:31 Temperature 36.6 C Pulse Rate 70 74 75 Respiratory Rate 24 H 20 Blood Pressure 127/86 Pulse Oximetry 97 96 Oxygen Delivery Oxygen Flow Rate Fraction of Inspired Oxygen 06/25/24 00:00 06/25/24 00:00 06/25/24 02:00 Temperature Pulse Rate 69 69 68 Respiratory Rate 20 Blood Pressure Pulse Oximetry 96 Oxygen Delivery BiPAP Oxygen Flow Rate Fraction of Inspired Oxygen 32 06/25/24 02:00 06/25/24 04:00 06/25/24 04:00 Temperature Pulse Rate 72 68 68 Respiratory Rate 18 20 Blood Pressure Pulse Oximetry 95 96 Oxygen Delivery BiPAP Oxygen Flow Rate Fraction of Inspired Oxygen 32 06/25/24 05:03 06/25/24 05:10 06/25/24 05:33 Temperature 36.4 C Pulse Rate 78 81 72 Respiratory Rate 20 18 Blood Pressure 126/76 Pulse Oximetry 97 99 Oxygen Delivery Oxygen Flow Rate Fraction of Inspired Oxygen 06/25/24 06:03 06/25/24 07:46 06/25/24 07:50 Temperature 36.6 C Pulse Rate 73 Respiratory Rate 18 Blood Pressure 110/85 Pulse Oximetry 97 98 98 Oxygen Delivery Nasal Cannula Nasal Cannula Oxygen Flow Rate 3 2 Fraction of Inspired Oxygen Intake/Output Intake/Output: Intake & Output 06/22/24 06/23/24 06/24/24 06/25/24 23:59 23:59 23:59 23:59 Intake Total 1801.7 3038.3 1880 1240 Output Total 200 300 850 800 Balance 1601.7 2738.3 1030 440 Meds/Results Medications: Active Medications Generic Name Dose Route Start Last Admin Trade Name Freq PRN Reason Stop Dose Admin Acetaminophen 1,000 mg 06/21/24 22:35 06/25/24 08:55 Acetaminophen 500 Mg Tablet PO 1,000 mg Q12HR MIRIAN Administration Apixaban 5 mg 06/21/24 22:40 06/25/24 08:55 Apixaban 5 Mg Tablet PO 5 mg Q12HR MIRIAN Administration Atorvastatin Calcium 40 mg 06/22/24 09:00 06/25/24 08:55 Atorvastatin 40 Mg Tablet PO 40 mg DAILY MIRIAN Administration Chlorthalidone 25 mg 06/22/24 09:00 06/25/24 08:55 Chlorthalidone 25 Mg Tablet PO 25 mg DAILY MIRIAN Administration Diltiazem HCl 240 mg 06/22/24 09:00 06/25/24 08:55 Diltiazem Hcl Cd 240 Mg Cap.24hr PO 240 mg DAILY MIRIAN Administration Doxycycline Hyclate 100 mg 06/25/24 09:00 06/25/24 08:55 Doxycycline Hyclate 100 Mg Tablet PO 06/25/24 21:01 100 mg Q12HR MIRIAN Administration Escitalopram Oxalate 20 mg 06/22/24 09:00 06/25/24 08:55 Escitalopram Oxalate 10 Mg Tablet PO 20 mg DAILY MIRIAN Administration Fluticasone/Umeclidinium/Vilanterol 1 puff 06/23/24 08:00 06/25/24 07:47 Fluticasone/Umeclidin/Vilanter 100-62.5-25 Mcg Ellipta INHALATION 1 puff DAILYRT MIRIAN Administration Guaifenesin 1,200 mg 06/24/24 12:00 06/25/24 08:55 Guaifenesin 12 Hr 600 Mg Tabcr PO 1,200 mg Q12HR MIRIAN Administration Sodium Chloride 1,000 mls @ 60 mls/hr 06/24/24 16:50 06/24/24 17:09 Normal Saline Iv IV CONT 60 mls/hr .[id number] MIRIAN Administration Levalbuterol HCl 0.63 mg 06/24/24 11:42 Levalbuterol Neb 1.25 Mg/3 Ml INHALATION Q6HRT PRN Wheezing Losartan Potassium 50 mg 06/22/24 09:00 06/25/24 08:55 Losartan Potassium 50 Mg Tablet PO 50 mg DAILY MIRIAN Administration Melatonin 5 mg 06/21/24 21:00 06/24/24 20:59 Melatonin 5 Mg Tablet PO 5 mg HS MIRIAN Administration Montelukast Sodium 10 mg 06/21/24 22:45 06/24/24 17:10 Montelukast Sodium 10 Mg Tablet PO 10 mg QPM MIRIAN Administration Ondansetron HCl 4 mg 06/23/24 02:14 06/23/24 02:36 Ondansetron Inj 4 Mg/2 Ml Vial IV PUSH 4 mg Q6H PRN Administration Nausea And Vomiting Pantoprazole Sodium 40 mg 06/21/24 22:35 06/25/24 08:55 Pantoprazole 40 Mg Tablet PO 40 mg Q12HR MIRIAN Administration Prednisone 40 mg 06/22/24 08:00 06/25/24 08:55 Prednisone 20 Mg Tablet PO 06/25/24 13:59 40 mg DAILY@0800 MIRIAN Administration Radiology Results: ITS Impressions Chest X-Ray 06/21/24 10:53 Impression: 1: Subsegmental left basilar atelectasis. Labs Labs: Laboratory Results - last 24 hr 06/25/24 04:55 Puncture Site Right radial ABG pH 7.467 H ABG pCO2 53.1 H ABG pO2 78.5 L ABG PO2/FiO2 Ratio 2.45 ABG HCO3 37.5 H ABG O2 Saturation 96.0 ABG O2 Content 14.2 L ABG Base Excess 12.1 A-a Gradient 87.5 Oxyhemoglobin 94.6 Carboxyhemoglobin 1.8 Methemoglobin 0.3 Reduced Hemoglobin 3.3 Total Hemoglobin 10.6 L O2 Delivery Device Other device O2 Liters/Min Not Reportable FiO2 32
[2024-06-25 10:00] LABS: Hematocrit 33.3 % (37.0-47.0); Hemoglobin 10.4 g/dL (12.0-15.0); Immature Granulocyte Absolute 0.02 K/mm3 (0.00-0.031); Immature Granulocyte Percent A 0.3 % (0-0.5); Lymphocytes Absolute Auto 0.55 K/mm3 (0.9-3.2); Lymphocytes Percent Auto 7.1 % (18.3-44.2); Mean Corpuscular HGB Conc 31.2 g/dl (32-36); Mean Corpuscular Hemoglobin 29.5 pg (26-34); Mean Corpuscular Volume 94.6 fl (80-100); Mean Platelet Volume 9.7 fl (7.4-10.4); Monocytes Absolute Auto 0.7 K/mm3 (0.1-0.6); Monocytes Percent Auto 8.6 % (2.6-8.5); Neutrophils Absolute Auto 6.5 K/mm3 (1.3-6.7); Platelet Count Result 244 k/mm3 (150-375); Red Blood Count 3.52 M/mm3 (4.2-5.4); Red Cell Distribution Width 14.1 % (11.5-14.5); White Blood Count 7.8 K/mm3 (4.5-10.0)
[2024-06-25 10:18] LABS: Blood Urea Nitrogen 51 mg/dL (7-17); Calcium 8.5 mg/dL (8.4-10.2); Carbon Dioxide > 40 mmol/L (22-30); Chloride 88 mmol/L (98-107); Estimated CRCL calculation 30 ml/min; Estimated Glomerular Filt Rate 34; Glucose 135 mg/dL (65-110); Potassium 3.9 mmol/L (3.4-5.0); Sodium 132 mmol/L (137-145)
--- NOTE | 2024-06-25 14:56 | PC.NURSE ---
This patient, Malika Knight, was transferred to [[facility] ] on 06/25/24 at 1456. Personal belongings sent with patient. Report given to [KENDRA Cartagena @ [id number] ]. Appropriate documentation sent with patient.
--- NOTE | 2024-06-25 15:39 | P.PNIM_ITS ---
Progress Note: A&P Assessment and Plan (1) Acute on chronic respiratory failure with hypoxia and hypercapnia: Code(s): J96.21 - Acute and chronic respiratory failure with hypoxia; J96.22 - Acute and chronic respiratory failure with hypercapnia Status: Acute Assessment and Plan: - CXR with no infiltrates. - Likely related to COPD exacerbation. - Continues to improve, almost baseline. - Mgt as below. - Seen by Telegrapher Agent and test development engineer signed off with recommendations on his last progress note. Doxycycline 100 mg p.o. b.i.d. x2 days Breztri At 2 puffs b.i.d. Rescue albuterol 2 puffs q.4 hours p.r.n. shortness of breath or wheezing Guaifenesin 1200 mg p.o. b.i.d., montelukast 10 mg p.o. q.day Oxygen per formal home O2 assessment which I have ordered. When she naps and sleeps: Home noninvasive ventilator through [facility] with: Breath rate 14, tidal volume 500, auto EPAP minimum 5, auto EPAP maximum 15, minimum pressure support 6, maximum pressure support 25, maximum pressure 50, inspiratory time 1.0 and 3 L bleed in. this has been initiated on 06/24/2024 and until she has delivery of the home machine she should wear 3 L nasal cannula at night. (2) COPD exacerbation: Code(s): J44.1 - Chronic obstructive pulmonary disease with (acute) exacerbation Status: Acute Assessment and Plan: - CXR: subsegmental left basilar atelectasis. - EKG, initial: sinus rhythm, rate 82. No previous EKG available for comparison. Awaiting formal read. - ABG, initial: pH 7.407, pCO2 76.9, pO2 60.3, HCO3 47.3, O2 sat 89.9 % on 2L NC - Repeat ABG'S after admission showing worsening hypercapnia;75>>78>>82 - Symptoms much improved, currently on 3L/NC for sats > 90 %. - Continue scheduled DuoNebs, Trellegy elipta and budesonide. - Steroids treatment completed. - Pt qualifies for AVAPS at home per test development engineer. - Levaquin discontinued per test development engineer. - Appreciate Telegrapher Agent assistance. (3) ADEEL (acute kidney injury): Code(s): N17.9 - Acute kidney failure, unspecified Status: Acute Assessment and Plan: - Mild; Cr 1.2 from previous 0.79 04/09/23) - IVF discontinued with new crackles to bases. - Avoid nephrotoxins. - Meds dosing per renal function. - Continue to monitor kidney function closely. (4) Atrial fibrillation: Code(s): I48.91 - Unspecified atrial fibrillation Status: Acute Assessment and Plan: - Rate well controlled. - Continue telemetry. - Continue Cardizem and Eliquis. (5) Hypertension: Code(s): I10 - Essential (primary) hypertension Status: Acute Assessment and Plan: - Well controlled. - Continue Losartan. (6) Depression: Code(s): F32.A - Depression, unspecified Status: Acute Assessment and Plan: - Continue escitalopram. (7) Left arm swelling: Code(s): M79.89 - Other specified soft tissue disorders Status: Acute Assessment and Plan: - Venous duplex ordered. - Patient already on Eliquis for A-Fib. - Follow venous duplex results. (8) Generalized muscle weakness: Code(s): M62.81 - Muscle weakness (generalized) Status: Acute Assessment and Plan: - Continue PT/OT treatment. - SNF placement recommended and case mgt making arrangements. - Fall precautions. Plan Diet: Heart Healthy. GI Prophylaxis: Not currently indicated DVT Prophylaxis: SCDs, continue home Eliquis Lines: Peripheral Code Status: Full code Time Spent With Patient Time with patient: 15 - 25 minutes Subjective Date/time seen: 06/25/24 10:39 Patient states she feels alright and feels like her breathing is back to normal. Interval history: Patient calm on bedrest and looks to be in no acute distress. Patient admitted for COPD exacerbation and her respiratory status appears almost baseline. Patient with swelling to L. Arm and venous duplex pending to r/o DVT. Pt seen by PT and SNF placement recommended as pt weak and unable to take care of patient. Review of Systems Review of Systems: All systems reviewed & are unremarkable except as noted in HPI and below Exam Narrative: General: Awake and alert, looks comfortable. HEENT: Atraumatic, PERRL, EOM, moist mucosa. NECK: Supple. Lungs: Diminished with faint crackles to bases and faint wheezees. Heart: Irregularly irregular, no murmurs. Abdomen: Soft, non-tender, non-distended, obese, +ve BS X4 Quadrants. Extremities: Acyanotic, no edema. Skin: Warm and dry. No lesions noted. Neuro: Well oriented, no focal neuro deficits noted. Psych: Calm and co-operative. Objective Data Vital Signs Vital Signs: Vital Signs - 24 hr 06/24/24 16:00 06/24/24 16:00 06/24/24 16:00 Temperature 99.5 F Pulse Rate 92 89 Respiratory Rate 23 H Blood Pressure 125/96 H Pulse Oximetry 93 93 Pulse Oximetry [With Activity During Therapy Session] Oxygen Delivery Nasal Cannula Oxygen Flow Rate 3 Fraction of Inspired Oxygen 06/24/24 18:00 06/24/24 19:42 06/24/24 20:00 Temperature 98.3 F Pulse Rate 81 81 77 Respiratory Rate 22 H 20 Blood Pressure 97/53 L Pulse Oximetry 98 96 Pulse Oximetry [With Activity During Therapy Session] Oxygen Delivery Nasal Cannula Oxygen Flow Rate 4 Fraction of Inspired Oxygen 06/24/24 20:00 06/24/24 22:00 06/24/24 22:55 Temperature Pulse Rate 76 70 74 Respiratory Rate 24 H Blood Pressure Pulse Oximetry 97 Pulse Oximetry [With Activity During Therapy Session] Oxygen Delivery Oxygen Flow Rate Fraction of Inspired Oxygen 06/24/24 23:31 06/25/24 00:00 06/25/24 00:00 Temperature 97.8 F Pulse Rate 75 69 69 Respiratory Rate 20 20 Blood Pressure 127/86 Pulse Oximetry 96 96 Pulse Oximetry [With Activity During Therapy Session] Oxygen Delivery BiPAP Oxygen Flow Rate Fraction of Inspired Oxygen 06/25/24 02:00 06/25/24 02:00 06/25/24 04:00 Temperature Pulse Rate 68 72 68 Respiratory Rate 18 20 Blood Pressure Pulse Oximetry 95 96 Pulse Oximetry [With Activity During Therapy Session] Oxygen Delivery BiPAP Oxygen Flow Rate Fraction of Inspired Oxygen 06/25/24 04:00 06/25/24 05:03 06/25/24 05:10 Temperature 97.6 F Pulse Rate 68 78 81 Respiratory Rate 20 18 Blood Pressure 126/76 Pulse Oximetry 97 99 Pulse Oximetry [With Activity During Therapy Session] Oxygen Delivery Oxygen Flow Rate Fraction of Inspired Oxygen 06/25/24 05:33 06/25/24 06:03 06/25/24 07:46 Temperature 97.8 F Pulse Rate 72 73 Respiratory Rate 18 Blood Pressure 110/85 Pulse Oximetry 97 98 Pulse Oximetry [With Activity During Therapy Session] Oxygen Delivery Nasal Cannula Oxygen Flow Rate 3 Fraction of Inspired Oxygen 06/25/24 07:50 06/25/24 08:00 06/25/24 08:00 Temperature Pulse Rate 73 90 Respiratory Rate 18 Blood Pressure Pulse Oximetry 98 98 Pulse Oximetry [With Activity During Therapy Session] Oxygen Delivery Nasal Cannula Nasal Cannula Oxygen Flow Rate 2 2 Fraction of Inspired Oxygen 06/25/24 10:00 06/25/24 10:57 06/25/24 11:36 Temperature 98.3 F Pulse Rate 72 79 Respiratory Rate 22 H Blood Pressure 106/57 L Pulse Oximetry 90 Pulse Oximetry [With Activity During Therapy Session] 92 Oxygen Delivery Nasal Cannula Oxygen Flow Rate 4 Fraction of Inspired Oxygen Intake/Output Intake/Output: Intake & Output 06/22/24 06/23/24 06/24/24 06/25/24 23:59 23:59 23:59 23:59 Intake Total 1801.7 3038.3 1880 1480 Output Total 200 005 012 3200 Balance 1601.7 2738.3 1030 80 Meds/Results Medications: Active Medications Generic Name Dose Route Start Last Admin Trade Name Freq PRN Reason Stop Dose Admin Acetaminophen 1,000 mg 06/21/24 22:35 06/25/24 08:55 Acetaminophen 500 Mg Tablet PO 1,000 mg Q12HR MIRIAN Administration Apixaban 5 mg 06/21/24 22:40 06/25/24 08:55 Apixaban 5 Mg Tablet PO 5 mg Q12HR MIRIAN Administration Atorvastatin Calcium 40 mg 06/22/24 09:00 06/25/24 08:55 Atorvastatin 40 Mg Tablet PO 40 mg DAILY MIRIAN Administration Chlorthalidone 25 mg 06/22/24 09:00 06/25/24 08:55 Chlorthalidone 25 Mg Tablet PO 25 mg DAILY MIRIAN Administration Diltiazem HCl 240 mg 06/22/24 09:00 06/25/24 08:55 Diltiazem Hcl Cd 240 Mg Cap.24hr PO 240 mg DAILY MIRIAN Administration Doxycycline Hyclate 100 mg 06/25/24 09:00 06/25/24 08:55 Doxycycline Hyclate 100 Mg Tablet PO 06/25/24 21:01 100 mg Q12HR MIRIAN Administration Escitalopram Oxalate 20 mg 06/22/24 09:00 06/25/24 08:55 Escitalopram Oxalate 10 Mg Tablet PO 20 mg DAILY MIRIAN Administration Fluticasone/Umeclidinium/Vilanterol 1 puff 06/23/24 08:00 06/25/24 07:47 Fluticasone/Umeclidin/Vilanter 100-62.5-25 Mcg Ellipta INHALATION 1 puff DAILYRT MIRIAN Administration Guaifenesin 1,200 mg 06/24/24 12:00 06/25/24 08:55 Guaifenesin 12 Hr 600 Mg Tabcr PO 1,200 mg Q12HR MIRIAN Administration Levalbuterol HCl 0.63 mg 06/24/24 11:42 Levalbuterol Neb 1.25 Mg/3 Ml INHALATION Q6HRT PRN Wheezing Losartan Potassium 50 mg 06/22/24 09:00 06/25/24 08:55 Losartan Potassium 50 Mg Tablet PO 50 mg DAILY MIRIAN Administration Melatonin 5 mg 06/21/24 21:00 06/24/24 20:59 Melatonin 5 Mg Tablet PO 5 mg HS MIRIAN Administration Montelukast Sodium 10 mg 06/21/24 22:45 06/24/24 17:10 Montelukast Sodium 10 Mg Tablet PO 10 mg QPM MIRIAN Administration Ondansetron HCl 4 mg 06/23/24 02:14 06/23/24 02:36 Ondansetron Inj 4 Mg/2 Ml Vial IV PUSH 4 mg Q6H PRN Administration Nausea And Vomiting Pantoprazole Sodium 40 mg 06/21/24 22:35 06/25/24 08:55 Pantoprazole 40 Mg Tablet PO 40 mg Q12HR MIRIAN Administration Radiology Results: ITS Impressions Chest X-Ray 06/21/24 10:53 Impression: 1: Subsegmental left basilar atelectasis. Labs Labs: Laboratory Results - last 24 hr 06/25/24 06/25/24 04:55 09:32 WBC 7.8 RBC 3.52 L Hgb 10.4 L Hct 33.3 L MCV 94.6 MCH 29.5 MCHC 31.2 L RDW 14.1 Plt Count 244 MPV 9.7 Immature Gran % (Auto) 0.3 Neut % (Auto) 84.0 H Lymph % (Auto) 7.1 L [place] % (Auto) 8.6 H Eos % (Auto) 0.0 Baso % (Auto) 0.0 L Lymph # (Auto) 0.55 L [place] # (Auto) 0.7 H Eos # (Auto) 0.0 Baso # (Auto) 0.0 Abs Immat Gran (auto) 0.02 Absolute Neuts (auto) 6.5 Absolute Nucleated RBC 0.000 Nucleated RBC % 0.0 Puncture Site Right radial ABG pH 7.467 H ABG pCO2 53.1 H ABG pO2 78.5 L ABG PO2/FiO2 Ratio 2.45 ABG HCO3 37.5 H ABG O2 Saturation 96.0 ABG O2 Content 14.2 L ABG Base Excess 12.1 A-a Gradient 87.5 Oxyhemoglobin 94.6 Carboxyhemoglobin 1.8 Methemoglobin 0.3 Reduced Hemoglobin 3.3 Total Hemoglobin 10.6 L O2 Delivery Device Other device O2 Liters/Min Not Reportable FiO2 32 Sodium 132 L Potassium 3.9 Chloride 88 L Carbon Dioxide > 40 H Anion Gap BUN 51 H Creatinine 1.50 H Estim Creat Clear Calc 30 Estimated GFR 34 L Glucose 135 H Calcium 8.5 Quality VTE Prophylaxis VTE prophylaxis: mechanical ordered and pharmacologic ordered Hospitalist MIPS Advance Care Plan I have confirmed that the patient's Advanced Care Plan is present, code status is documented, or surrogate decision maker is listed in patient medical record.: Yes Medication Reconciliation I have utilized all available resources to obtain, update and review the patients current medications (includes all prescriptions, OTC, herbals, cannabis, and nutritional supplements).: Yes
[2024-06-25] MEDS: MONTELUKAST SODIUM 10 MG TABLET PO (17:53)
[2024-06-25] MEDS: MELATONIN 5 MG TABLET PO (20:52)
[2024-06-26 06:00] VITALS: BP 115/42; PULSE 72; RESP 20; TEMP 36.3; O2SAT 98
[2024-06-26] MEDS: ACETAMINOPHEN 500 MG TABLET 1000 MG PO (09:06)
[2024-06-26] MEDS: dilTIAZem HCL CD 240 MG CAP.24HR PO (09:06)
[2024-06-26] MEDS: ESCITALOPRAM OXALATE 10 MG TABLET 20 MG PO (09:06)
[2024-06-26] MEDS: ATORVASTATIN 40 MG TABLET PO (09:06)
[2024-06-26] MEDS: APIXABAN 5 MG TABLET PO (09:06)
[2024-06-26 09:07] LABS: Hematocrit 34.2 % (37.0-47.0); Hemoglobin 10.5 g/dL (12.0-15.0); Immature Granulocyte Absolute 0.04 K/mm3 (0.00-0.031); Immature Granulocyte Percent A 0.6 % (0-0.5); Lymphocytes Absolute Auto 1.01 K/mm3 (0.9-3.2); Lymphocytes Percent Auto 15.1 % (18.3-44.2); Mean Corpuscular HGB Conc 30.7 g/dl (32-36); Mean Corpuscular Hemoglobin 29.2 pg (26-34); Mean Platelet Volume 9.9 fl (7.4-10.4); Monocytes Absolute Auto 0.8 K/mm3 (0.1-0.6); Monocytes Percent Auto 12.2 % (2.6-8.5); Neutrophils Absolute Auto 4.8 K/mm3 (1.3-6.7); Neutrophils Percent Auto 72.1 % (45.5-73.1); Platelet Count Result 214 k/mm3 (150-375); Red Cell Distribution Width 13.6 % (11.5-14.5); White Blood Count 6.7 K/mm3 (4.5-10.0)
[2024-06-26] MEDS: guaiFENesin 12 HR 600 MG TABCR 1200 MG PO (09:07)
[2024-06-26] MEDS: LOSARTAN POTASSIUM 50 MG TABLET PO (09:07)
[2024-06-26] MEDS: PANTOPRAZOLE 40 MG TABLET PO (09:07)
[2024-06-26] MEDS: CHLORTHALIDONE 25 MG TABLET PO (09:07)
[2024-06-26 09:30] LABS: Blood Urea Nitrogen 42 mg/dL (7-17); Calcium 8.5 mg/dL (8.4-10.2); Carbon Dioxide > 40 mmol/L (22-30); Chloride 92 mmol/L (98-107); Estimated CRCL calculation 39 ml/min; Estimated Glomerular Filt Rate 48; Glucose 91 mg/dL (65-110); Potassium 3.3 mmol/L (3.4-5.0); Sodium 132 mmol/L (137-145)
[2024-06-26] MEDS: POTASSIUM CHLORIDE 20 MEQ ER TABLET 40 MEQ PO (10:17)
--- NOTE | 2024-06-26 10:26 | PM.DS ---
DS: Admitting Diagnosis Discharge Date 06/26/2024 Admitting Diagnosis Shortness of breath DS: Discharge Diagnosis Discharge Diagnosis (1) COPD exacerbation: Code(s): J44.1 - Chronic obstructive pulmonary disease with (acute) exacerbation Status: Acute (2) Acute on chronic respiratory failure with hypoxia and hypercapnia: Code(s): J96.21 - Acute and chronic respiratory failure with hypoxia; J96.22 - Acute and chronic respiratory failure with hypercapnia Status: Acute (3) ADEEL (acute kidney injury): Code(s): N17.9 - Acute kidney failure, unspecified Status: Acute (4) Left arm swelling: Code(s): M79.89 - Other specified soft tissue disorders Status: Acute (5) Generalized muscle weakness: Code(s): M62.81 - Muscle weakness (generalized) Status: Acute (6) Hypokalemia: Code(s): E87.6 - Hypokalemia Status: Acute DS: Summary Hospital Course Hospital Course: Presented to the hospital with increase shortness of breath for 2-3 days and dizziness. Patient has hx of COPD and is a former smoker. Initial VS at presentation: 98.6? F, HR 77, RR 22, 126/60, and 95% on 2L NC. ED workup showed: No leukocytosis, hemoglobin 10.7 (previously 11.2 on 04/09/23), creatinine 1.1 and GFR 48 (previously 0.7 and GFR >60), glucose 121. CXR showed subsegmental left basilar atelectasis. EKG showed sinus rhythm, rate 82. Followed by Pulmonology while here: AVAPS AE noninvasive ventilator with : Breath rate 14, tidal volume 500, auto EPAP minimum 5, auto EPAP maximum 15, minimum pressure support 6, maximum pressure support 25, maximum pressure 50, inspiratory time 1.0 and 3 L bleed in. Plan: From a pulmonary perspective patient can be discharged on these pulmonary medications Doxycycline 100 mg p.o. b.i.d. x2 days Breztri At 2 puffs b.i.d. Rescue albuterol 2 puffs q.4 hours p.r.n. shortness of breath or wheezing Guaifenesin 1200 mg p.o. b.i.d., montelukast 10 mg p.o. q.day Venous doppler of left upper arm negative for a DVT. Discharge to [facility] for rehab, per telephonic nurse case manager avaps machine is a [email or web address]. Status at Discharge Functional status at discharge: uses cane/walker Overall status at discharge: patient is not back to baseline Time Spent with Patient Time attestation: Total time spent providing and/or coordinating discharge services: Time spent: Greater than 30 minutes Exam Const: General: comfortable and no acute distress Resp: Auscultation: diminished lung sounds Cardio: Rhythm: abnormal rhythm irregularly irregular GI: GI Palp: Yes Soft to palpation Auscultation: normal bowel sounds Skin: General skin exam: no rashes or lesions noted Extrem: General: no pedal edema Psych: Affect: normal affect DS: Data Data Completed and Pending Labs on day of discharge: Labs from last 24 hours 06/26/24 08:12 WBC 6.7 RBC 3.60 L Hgb 10.5 L Hct 34.2 L MCV 95.0 MCH 29.2 MCHC 30.7 L RDW 13.6 Plt Count 214 MPV 9.9 Immature Gran % (Auto) 0.6 H Neut % (Auto) 72.1 Lymph % (Auto) 15.1 L [place] % (Auto) 12.2 H Eos % (Auto) 0.0 Baso % (Auto) 0.0 L Lymph # (Auto) 1.01 [place] # (Auto) 0.8 H Eos # (Auto) 0.0 Baso # (Auto) 0.0 Abs Immat Gran (auto) 0.04 H Absolute Neuts (auto) 4.8 Absolute Nucleated RBC 0.000 Nucleated RBC % 0.0 Sodium 132 L Potassium 3.3 L Chloride 92 L Carbon Dioxide > 40 H Anion Gap BUN 42 H Creatinine 1.10 H Estim Creat Clear Calc 39 Estimated GFR 48 L Glucose 91 Calcium 8.5 Discharge Plan Discharge Attending physician on discharge: Simon Chong Consulting providers: Anshul Leal Discharging Clinician: Danelle Nickerson Anticipated Discharge Date/Time: 06/26/24 13:00 Patient Disposition: SNF Activity: may shower and as tolerated Diet: regular Discharge Instructions: AVAPS AE noninvasive ventilator with : Breath rate 14, tidal volume 500, auto EPAP minimum 5, auto EPAP maximum 15, minimum pressure support 6, maximum pressure support 25, maximum pressure 50, inspiratory time 1.0 and 3 L bleed in. 02@2LNC Take inhalers as prescribed. [facility] for rehab. Patient Instructions: Antibiotic Form, COPD (Chronic Obstructive Pulmonary Disease) (DC), Chronic Respiratory Failure (DC) Patient Language: Moldovan Stand Alone Forms: General Discharge Information Follow-up/Referrals: pulmonology [Other] - 07/05/24 (Elsie Powell) Khurram,MD Anshul [Primary Care Provider] - 1 Week Discharge Medications: New guaifenesin [Mucus Relief ER] 600 mg Tablet Extended Release 12hr 1,200 mg PO Q12HR Qty: 60 0RF Breztri Aerosphere 160-9-4.8 mcg/actuation HFA aerosol inhaler 2 inh inhalation BID Qty: 10.7 0RF doxycycline hyclate 100 mg capsule 100 mg PO BID Qty: 4 0RF albuterol sulfate 90 mcg/actuation HFA aerosol inhaler 2 puff inhalation Q4H PRN (Reason: shortness of breath or wheezing) Qty: 8.5 0RF Continued losartan 50 mg tablet 50 mg PO DAILY diltiazem HCl 240 mg capsule,extended release 24hr 240 mg PO DAILY escitalopram oxalate 20 mg tablet 20 mg PO DAILY atorvastatin 40 mg tablet 40 mg PO DAILY chlorthalidone 25 mg tablet 25 mg PO DAILY Eliquis 5 mg tablet 5 mg PO BID pantoprazole 40 mg tablet,delayed release (DR/EC) 40 mg PO Q12H montelukast 10 mg tablet 10 mg PO QPM acetaminophen [Pain Reliever ES(acetaminophn)] 500 mg tablet 1,000 mg PO Q12H Discontinued albuterol sulfate 2.5 mg /3 mL (0.083 %) solution for nebulization 2.5 mg inhalation DAILY Breztri Aerosphere 160-9-4.8 mcg/actuation HFA aerosol inhaler 1 inh INHALATION DAILY Date of admission: 06/22/24 09:47 Primary Care Provider: Khurram,Anshul Admitting Provider: Alicia Hurt Attending physician on admission: Alicia Hurt Condition: Stable Hospitalist MIPS Heart Failure (Exclusion) Patient has history of Heart Transplant or Left Ventricular Assistive Device?: No IF YES, STOP HERE Heart Failure (Qualifier) Patient has current or prior documentation of LVEF less than or equal to 40%, or mod/servere depressed LVSF?: No IF NO, STOP HERE
--- NOTE | 2024-06-26 13:01 | PC.NURSE ---
report called to Siri silva [place]
== END 2024-06-26 13:26 | DRG 190 ==
LOC: ANHED 11:36 → ANH3MEDSUR 13:28 → ANHIMU 06-24 12:21 → ANH3MEDSUR 06-26 12:36 → ANHIMU 06-27 13:02
PROVIDERS: Internal Medicine; Internal Medicine Pulmonary Disease; Nurse Practitioner Adult Health; Student in an Organized Health Care Education/Training Program; Admitting Provider Internal Medicine; Emergency Provider Emergency Medicine; PCP Internal Medicine; Visit Provider Nurse Practitioner Family
DX: J44.1 Chronic obstructive pulmonary disease with (acute) exacerbation (principal); J96.21 Acute and chronic respiratory failure with hypoxia; J96.22 Acute and chronic respiratory failure with hypercapnia; N17.9 Acute kidney failure, unspecified; K21.9 Gastro-esophageal reflux disease without esophagitis; M19.90 Unspecified osteoarthritis, unspecified site; I10 Essential (primary) hypertension; I48.91 Unspecified atrial fibrillation; F32.A Depression, unspecified; E87.6 Hypokalemia; M79.89 Other specified soft tissue disorders; Z90.710 Acquired absence of both cervix and uterus; Z87.891 Personal history of nicotine dependence
CPT/HCPCS: 36415; 36600; 71045; 80048; 80053; 81001; 82375; 82550; 82570; 82805; 83050; 83880; 84156; 84300; 84540; 85018; 85025; 87637; 93005; 93971; 94002; 94003; 94640; 94762; 97161; 97166; 99285; A9270; G0378; J1940; J1956; J2060; J2405; J2919; J7030; J7512

== ENCOUNTER 2024-08-06 14:43 | Emergency (ER) | payer MEDICARE, BC, SELFPAY ==
[2024-08-06] VITALS (7 sets, daily range): BP systolic 110–141; BP diastolic 60–104; PULSE 72–94; RESP 20–24; TEMP 36.7; O2SAT 88–100
--- NOTE | ~2024-08-06 | XR_ITS ---
EXAMINATION: XR chest 1V portable DATE: 08/06/2024 17:07 INDICATION: Shortness of breath. TECHNIQUE: A single frontal view of the chest was obtained. COMPARISON: Chest single view 06/21/2024, CT abdomen and pelvis 04/09/2023 FINDINGS: There is mild scarring in left lower lung zone. No pleural effusion or pneumothorax. The he art size is normal. IMPRESSION: 1. Mild scarring in left lower lung zone. Reviewed, dictated and finalized at location A. TALLIZER OPERATOR
--- NOTE | 2024-08-06 15:00 | PC.NURSE ---
Pt switched from home O2 to hospital O2 tank on 6L, oxygen increased to 95%.
--- OUTSIDE RECORDS SUMMARY | 2024-08-06 15:17 | XMS_ITS | Encounter Summary ---
Author Organization [facility] Address [address] [place] [address] Care Team Providers Care Smasher Hand Name Role Phone Unavailable Primary Care Provider Unavailabl e Encounter Details Date Type Department Care Team (Late st Contact Info) Description 04/30/2015 Lab Requisition [facility] [address] [place] [address] [facility], External Provider [address] [place] [address] Social History Tobacco Use Types Packs/Day Years Used Date Smoking Tobacco: Never Assessed Comments Unknown Sex and Gender Information Value Date Recorded Sex Assigned at Not on file Legal Sex Female 12:33 PM CDT Gender Identity Not on file Sexual Orientation Not on file documented as of this encounter Plan of Treatment Not on file documented as of this encounter Procedures Procedure Name Priority Date/Time Associated Diagnosis Comments NEEDLESTICK EXPOSURE PANEL Routine 04/30/2015 12:08 PM CDT HEPATITIS B SURFACE ANTIGEN Routine 04/30/2015 12:08 PM CDT HEPATITIS C ANTIBODY Routine 04/30/2015 12:08 PM CDT documented in this encounter Results * HEPATITIS C ANTIBODY (04/30/2015 12:08 PM CDT) HEPATITIS C AB NON-REACTI VE Non-react khadar 04/30/2015 3:40 PM CDT [facility] Comment: If a patient is known to be at high risk for HCV infection, or is symptomatic, and the physician's suspicion of HCV infection is high, HCV RNA testing is often employed and is of diagnostic value, even after an initial negative anti-HCV test result. Signal to cutoff index is <1.00. Blood 04/30/2015 12:0 8 PM CDT 04/30/2015 1:35 PM CDT External Provider [facility] CHEMISTRY ORDERABLES Fin al Result [facility] CLIA# [id number] [address] [place] [address] * HEPATITIS B SURFACE ANTIGEN (04/30/2015 12:08 PM CDT) HEPATITIS B SURFACE AG NON-REACTI VE Non-reacti ve 04/30/2015 3:40 PM CDT [facility] Blood 04/30/2015 12:0 8 PM CDT 04/30/2015 1:35 PM CDT External Provider [facility] CHEMISTRY ORDERABLES Fin al Result Performing Organization Address [facility] de Phone Number [facility] CLIA# [id number] [address] [place] [address] * NEEDLESTICK EXPOSURE PANEL (04/30/2015 12:08 PM CDT) Pathologist [facility] RAPID HIV SCREEN NON-REACTI VE Non-Reacti ve 04/30/2015 2:43 PM CDT [facility] Comment:Results called to saulo sprague by ISA ASCENCIO at 2:42 PM on 04/30/2015 and read back verified. Blood 04/30/2015 12:0 8 PM CDT 04/30/2015 1:35 PM CDT External Provider [facility] CHEMISTRY ORDERABLES COM Final Result [facility] CLIA# [id number] [address] [place] [address] documented in this encounter Visit Diagnoses Not on filedocumented in this encounter
--- OUTSIDE RECORDS SUMMARY | 2024-08-06 15:17 | XMS_ITS | CONTINUITY OF CARE DOCUMENT ---
Author Name ji workman Address Unknown Organization [facility] Address [address] [address] [place] [address] Phone [phone] Care Team Providers Care Magnetic Prospecting Supervisor Name Role Phone Shamir Palacios MD Unavailable HYUN FUNK MD Unavailable [phone] HYUN FUNK MD Unavailable PROBLEMS Condition Status Date Provider Notes COPD active Shamir Palacios MD HTN NEEDS BETTER CONTROL-01/07 2 ECHO EF 60 active ? Montez Ochoa RN OBESITY active Shamir Palacios MD Family History of Hyperlipidemia: completed - Shamir Palacios MD Family History of Hypertension: completed - Us yonny Palacios MD Atrial fib active Shamir Palacios MD Edema active Shamir Palacios MD Hypercholesterolemia, mixed active Sade Gr uenenfelder Shortness of breath active Shamir Palacios MD Former smoker active Shamir Palacios MD Cardiology examination active Shamir Palacios MD Tachypnea active Shamir Palacios MD CHEST PAIN-01/18 NUC NEG EF 76 active ? Montez duong RN ENCOUNTERS Date Type Provider Location Encounter Diag nosis - In-person encounter Office Visit Shamir Palacios MD [facility] - In-person encounter Office Visit Shamir Palacios MD [facility] Tachypnea - In-person encounter Office Visit Shamir Palacios MD [facility] - In-person encounter Office Visit Shamir Palacios MD [facility] - In-person encounter Office Visit Shamir Palacios MD [facility] - In-person encounter Office Visit Shamir Palacios MD [facility] - In-person encounter Office Visit Shamir Palacios MD [facility] - In-person encounter Office Visit Shamir Palacios MD [facility] Cardiology examination - In-person encounter Office Visit Shamir Palacios MD [facility] Family History of Hyperlipidemia:Famil y History of Hypertension:Former smoker - In-person encounter Office Visit Shamir Palacios MD [facility] - In-person encounter Office Visit Shamir Palacios MD [facility] - In-person encounter Office Visit Vanessa Barney MD [facility] - In-person encounter Office Visit Shamir Palacios MD [facility] - In-person encounter Office Visit Shamir Palacios MD [facility] - In-person encounter Office Visit Shamir Palacios MD [facility] - In-person encounter Office Visit Shamir Palacios MD [facility] - In-person encounter Office Visit Shamir Palacios MD [facility] - In-person encounter Office Visit Shamir Palacios MD [facility] - In-person encounter Office Visit Shamir Palacios MD [facility] Shortness of breath - In-person encounter Office Visit Shamir Palacios MD [facility] - In-person encounter Office Visit Shamir Palacios MD [facility] - In-person encounter Office Visit Shamir Palacios MD [facility] - In-person encounter Office Visit Shamir Palacios MD [facility] Atrial fibEdemaHypercholest erolemia, mixed - In-person encounter Office Visit Shamir Palacios MD [facility] - In-person encounter Office Visit Shamir Palacios MD [facility] CHEST PAIN-01/18 NUC NEG EF [id number] [...] Lucho Palacios MD weight E&M 185 [lb_av] [facility] blood pressure, diastolic 90 mm[Hg] [facility] blood pressure, cuff size regular [facility] blood pressure, systolic 174 mm[Hg] [facility] 96 /min [facility] oxygen saturation, oximetry 85 % [facility] respiratory rate E&M 22 /min Sunitha Amrik luke height E&M 66 [in_i] [facility] Body Mass Index (Ratio) 30.02 kg/m2 Sean [...] pressure, systolic 157 mm[Hg] [facility] pulse rate 80 /min Justin Inhaled O2 3 L/min Justin respiratory rate E&M 16 /min Justin oxygen saturation, oximetry 92 % Justin weight E&M 189 [lb_av] Justin height E&M 66 [in_i] Justin Body Mass Index (Ratio) 31.31 kg/m2 Lucho Palacios MD blood pressure, cuff size regular Ke rri Gruene blood pressure, diastolic 80 mm[Hg] Ke rri Gruenenf blood pressure, systolic 190 mm[Hg] [facility] Inhaled O2 3 L/min Sade Yates oxygen saturation, oximetry 85 % Sade Barrera respiratory rate E&M 14 /min Sade elliott pulse rate 89 /min Sade Yates [facility] weight E&M 194 [lb_av] Sade Aimeneangelito er height E&M 66 [in_i] Sade Yates [facility] Body Mass Index (Ratio) 30.82 kg/m2 Lucho [...] blood pressure, diastolic 86 mm[Hg] Cristo enzo [place] blood pressure, systolic 130 mm[Hg] Gunjan rice Prince oxygen saturation, oximetry 97 % Simin Prince respiratory rate E&M 16 /min Simin [place] pulse rate 93 /min Simin Prince weight E&M 195 [lb_av] Simin Prince height E&M 66 [in_i] Simin Prince Body Mass Index (Ratio) 30.18 kg/m2 Lucho [...] Holly Inhaled O2 3 L/min Sade Trudy [facility] oxygen saturation, oximetry 99 % Sade Holly respiratory rate E&M 20 /min Sade elliott pulse rate 81 /min Sdae Trudy er weight E&M 188 [lb_av] Sade [...] Molly pierre Ramsey pulse rate 91 /min Andrea Malone bret weight E&M 178.4 [lb_av] Andrea [...] elliott pulse rate 86 /min Sade Trudy [facility] weight E&M 179 [lb_av] Sade Aimevanessaangelito [facility] height E&M 66 [in_i] Sade Manzanaresangelito [facility] blood pressure, diastolic 72 mm[Hg] Me emre [...] Belkys watkins Luna pulse rate 76 /min Angeal Chatterjeeann oxygen saturation, oximetry 93 % Angela [...] Mass Index (Ratio) 28.24 kg/m2 Leigh i Holly blood pressure, diastolic 60 mm[Hg] Ke rri [...] eph [place] pulse rate 82 /min [place]elio [place] oxygen saturation, oximetry 95 % [facility] E&M 20 /min [facility] weight E&M 206.4 [lb_av] [facility] ALLERGIES Allergy Name Onset Date Reaction [...] tablet,delayed release (DR/EC) active Ana Maria Silver FINISHING SUPERVISOR Eliquis 5 mg tablet active TAKE 1 TABLET BY MOUTH TWICE DAILY Peg Rivers NP diltiazem HCl 240 mg capsule,extended release 24hr active Take 1 capsule by mouth once a day Peg Rivers NP Eliquis 5 mg tablet completed - Justin Rodriguez aspirin 81 mg tablet,delayed release (DR/EC) completed Take 1 tablet by mouth once a day - Ana Maria Silver FINISHING SUPERVISOR Eliquis 5 mg tablet completed TAKE 1 [...] RELEASE 24 HOUR completed one daily - Macije Polk RN ipratropium-albut brock 0.5 mg-3 mg(2.5 mg base)/3 mL solution for nebulization active Inhale as needed Angela Luna TRAMADOL HCL 50 MG ORAL TABLET completed three times daily - Sade Barrera One-A-Day Trubiotics 2 billion cell capsule active once a day Angela Luna omeprazole 20 mg capsule,delayed release(/EC) completed Take 1 twice a day - Ana Maria Rossimijoana FINISHING SUPERVISOR MULTIVITAMINS CAPS active 1 tablet once a day Shamir Palacios MD LASIX 20 MG ORAL TABLET completed [...] tablet once a day Ana Maria Ventimiglarminda FINISHING SUPERVISOR Singulair 10 mg tablet active 1 tablet once a day Angus Fisher atorvastatin 40 mg tablet active 1 tablet once a day Shamir Palacios MD SOCIAL HISTORY Date Observation Value Provider drug use no Verah Bonareri DIRECTOR PATIENT ACCOUNTING alcohol use no Verah Bonareri DIRECTOR PATIENT ACCOUNTING smoking, year quit 1997 Peg Cordon DIRECTOR PATIENT ACCOUNTING number of years as a smoker 25 a Andreinaangeline Bonareri DIRECTOR PATIENT ACCOUNTING smoking history, tot al pack/day 2 Verah Bonareri DIRECTOR PATIENT ACCOUNTING cigarette use yes Verah Bonareri DIRECTOR PATIENT ACCOUNTING smoking status Former smoker Peg Bonare ri DIRECTOR PATIENT ACCOUNTING drug use no Sunitha Hernandez alcohol use no Sunitha Hernandez smoking, year quit 1997 [facility] number of years as a smoker 25 a Sunitha Hernandez smoking history, tot al pack/day 2 Sunitha Hernandez cigarette use yes Sunitha Hernandez smoking status Former smoker Sunitha Hernandez drug use no Verah Bonareri DIRECTOR PATIENT ACCOUNTING alcohol use no Verah Bonareri DIRECTOR PATIENT ACCOUNTING smoking, year quit 1997 Peg Cordon DIRECTOR PATIENT ACCOUNTING number of years as a smoker 25 a Peg Rivers DIRECTOR PATIENT ACCOUNTING smoking history, tot al pack/day 2 Peg Rivers DIRECTOR PATIENT ACCOUNTING cigarette use yes Peg Rivers DIRECTOR PATIENT ACCOUNTING smoking status Former smoker Peg Leo ri DIRECTOR PATIENT ACCOUNTING drug use no Ana Maria Ventimig cassie FINISHING SUPERVISOR alcohol use no Ana Maria Ventimig cassie FINISHING SUPERVISOR smoking status Former smoker Ana Maria Venti miglia FINISHING SUPERVISOR drug use no Ana Maria Ventimig cassie FINISHING SUPERVISOR alcohol use no Ana Maria Ventimig cassie FINISHING SUPERVISOR smoking status Former smoker Ana Maria Venti miglia [facility] social history E&M Marital Statu s: L [...] atmilton is a former smoker. Allie Ravinder DIRECTOR PATIENT ACCOUNTING social history reviewed E&M revi ewed - no changes required Allie Ravinder DIRECTOR PATIENT ACCOUNTING physical exercise, frequency, days per week no [...] yes Andrea paul smoking status Former smoker Andera Hidalgo smoking/tobacco cess ation, patient education and [...] or m ore LinkLog smoking status Quit [facility] MENTAL STATUS Date Observation Value Provider [...] Medicare BLUE SHIELD OF [place] Blue Shield [id number] [place] MEDICARE Medicare [id number] ADVANCE DIRECTIVES Name Date DISCUSSED - NO DECISION MADE TREATMENT PLAN Date Name Performer [id number],S,weight loss e ncouraged. [facility] [id number],S, H er updated medication list for this problem includes: Atorvastatin 40 Mg Tablet (Atorvastatin) ..... 1 tablet once a day [facility] [id number],S,B P 157/72 W ill monitor c sreekanth present medication regimen H er updated medication list for this problem includes: Diltiazem Hcl 240 Mg Capsule,extended Release 24hr (Diltiazem hcl) ..... Take 1 capsule by mouth once a day Losartan 50 Mg Tablet (Losartan) ..... Take 1 tablet once a day [facility] [id number],S,c hronic SOB in setting of COPD. She is O2 dependent at 3L [facility] [id number],S,C urrently rate is regular and controlled on exam. Will continue CCB. On eliquis for AC and tolerating well [facility] [id number],C, H er updated medication list for this problem includes: Atorvastatin 40 Mg Tablet (Atorvastatin) ..... 1 tablet once a day [facility] [id number],S,r emains on nebs and inhaler. Follow with pulmonary H er updated medication list for this problem includes: Ipratropium-albuterol 0.5 Mg-3 Mg(2.5 Mg Base)/3 Ml Solution For Nebulization (Ipratropium-albuterol) ..... Inhale as needed Singulair 10 Mg Tablet (Montelukast) ..... 1 tablet once a day Trelegy Ellipta 200-62.5-25 Mcg Blister With Device (Jhkcmgapdyo-gjdvsdjli-lqdcbbrm) ..... 1 puff once a day [facility] [id number],S,B P 190/80 on arrival. On recheck was [...] ..... Take 1 tablet once a day [facility] [id number],S,T his is chronic in the setting of [...] ..... Take 1 tablet once a day [facility] [id number],S,P atient rate controlled today. Diltiazem increased at [...] a day Orders: 9 9214 MOD 30-39min (CPT-27251) M onitor - Telemetry (Mobile Cardiac) (CPT-49144) Ana Maria Ventimiglia FINISHING SUPERVISOR [id number],B,Maintains sin Shamir Palacios MD [id number],W, Shamir Palacios MD [id number],S, Shamir Palacios MD [id number],W, Shamir Palacios MD [id number],S, Shamir Palacios MD [id number],B, Shamir Palacios MD [id number],S, O n supplemental oxygen. has COPD and emphysema. Sees pulmonary Shamir Palacios MD [id number],B, B P today: 130/86 P rior BP: 140/90 (05/03/2021) Her updated medication list for this problem includes: Losartan 50 Mg Tablet (Losartan) ..... Take 1 tablet once a day Diltiazem Hcl 120 Mg Capsule,extended Release 24hr (Diltiazem hcl) ..... Take 1 capsule daily Shamir Palacios MD [id number],B, S he has no palpitations and hasn't had any documented afib in a long time. I'll stop her eliquis and just have her take an 81mg baby aspirin daily. Her updated medication list for this problem includes: Aspirin 81 Mg Tablet,delayed Release (dr/ec) (Aspirin) ..... Take 1 tablet by mouth once a day Shamir Palacios MD [id number],S, S table on supplemental O2, Emphysema, COPD. Shamir Palacios MD [id number],S, N o chest pain Shamir Palacios MD [id number],S, Shamir Palacios MD [id number],C, C ontinue eliquis for stroke prophylaxis N SR on EKG Shamir Palacios MD [id number],C, S table on supplemental O2, Emphysema, COPD. Shamir Palacios MD Cardiology: O n Eliquis for AC [...] Trelegy Ellipta 200-62.5-25 Mcg Blister With Device (Esvmonbqrfc-xedulnnwr-rpcgkrgx) ..... 1 puff once a day Peg [...] Trelegy Ellipta 200-62.5-25 Mcg Blister With Device (Gdlmojpgshf-zkcoibnik-vsszohtl) ..... 1 puff once a day Shamir [...] Trelegy Ellipta 200-62.5-25 Mcg Blister With Device (Jzpplpiyreq-zzjfedevr-kburzepv) ..... 1 puff once a day Peg [...] Cardiology:weight loss encourage d. Ana Maria Silver [facility] Cardiology: H er updated medication list for this problem includes: Atorvastatin 40 Mg Tablet (Atorvastatin) ..... 1 tablet once a day Ana Maria Silver [facility] Cardiology:BP 157/72 W ill monitor c sreekanth present medication regimen H er updated medication list for this problem includes: Diltiazem Hcl 240 Mg Capsule,extended Release 24hr (Diltiazem hcl) ..... Take 1 capsule by mouth once a day Losartan 50 Mg Tablet (Losartan) ..... Take 1 tablet once a day [facility] Cardiology:chronic S OB in setting of COPD. She is O2 dependent at 3L [facility] Cardiology:Currently rate is regular and controlled on exam. Will continue CCB. On eliquis for AC and tolerating well [facility] Cardiology: H er updated medication list for this problem includes: Atorvastatin 40 Mg Tablet (Atorvastatin) ..... 1 tablet once a day [facility] Cardiology:remains o n nebs and inhaler. Follow with pulmonary H er updated medication list for this problem includes: Ipratropium-albuterol 0.5 Mg-3 Mg(2.5 Mg Base)/3 Ml Solution For Nebulization (Ipratropium-albuterol) ..... Inhale as needed Singulair 10 Mg Tablet (Montelukast) ..... 1 tablet once a day Trelegy Ellipta 200-62.5-25 Mcg Blister With Device (Hqkmimihwci-wxdqvnbhy-cnnhdiox) ..... 1 puff once a day [facility] Cardiology:BP 190/80 on arrival. On recheck [...] ..... Take 1 tablet once a day [facility] Cardiology:This is c hronic in the [...] tablet once a day Ana Maria Adrianne [facility] Cardiology:Patient r ate controlled today. Diltiazem increased [...] a day Orders: 9 9214 MOD 30-39min (CPT-00515) M onitor - Telemetry (Mobile Cardiac) (CPT-48955) Ana Marialorenzo Silver [facility] Cardiology:Maintains sinus Shamir Palacios MD Cardiology Shamir [...] Castellon NP Cardiology Follow up : C sreekanth eliquis for stroke prophylaxis. Echo demonstrates EF 65%, mild TR, mild pHTN. No bleeding issues N SR on EKG Allie Castellon NP Cardiology Follow up :Echo 10/2019 C ONCLUSIONS: 1 . Normal left [...] oxygen. has COPD and emphysema. Sees pulmonary Vanessa Barney MD Cardiology Follow up :Continue eliquis [...] today. Will check 14 day telesentry. Continue Eliquis. Shamir Palacios MD Cardiology follow up : [...] OAC. Shamir Palacios MD Cardiology follow up:will amberlye r check her echo. Shamir Palacios MD [...] up :Continues on eliquis for OAC. Shamir Palaicos MD Cardiology:Her 31 da y event monitor showed no Afib but had a few episodes of SVT. Will swtich her from [facility] to Cardizem 120mg po daily. Shamir Palacios [...] daily Shamir Palacios MD Cardiology:on Eliquis Shamir hawthorne MD Cardiology: B P today: 137/76 P [...] Tele Complete Echo Complete Echo DLCO - 57329 FRC - 94500 FVC - 03834 Mobile Cardiac Tele Complete Echo Mobile Cardiac [...] completed EKG Shamir Palacios MD completed SNOMED-CT: [id number] Physical Exam, Performed: Pulse Exam of Foot Shamir Palacios MD completed SNOMED-CT: [id number] 662342 Current Medications Documented Shamir Palacios MD completed BLOOD COUNT HEMOGLOBIN Shamir Palacios MD completed FVC - 73807 Shamir Palacios MD complete d FRC - 11604 Shamir Palacios MD complete d DLCO - 51792 Shamir Palacios MD complet ed SNOMED-CT: 17108928 Physical Exam, Performed: Pulse Exam of Foot Shamir Palacios MD completed SNOMED-CT: 454216411 849451 Current Medications Documented Shamir Palacios MD completed Event Monitor Sophia Tomlin completed SNOMED-CT: 98509983 Physical Exam, Performed: Pulse Exam of Foot Shamir Palacios MD completed EKG Shamir Palacios MD completed SNOMED-CT: 642392920 738317 Current Medications Documented Shamir Palacios MD completed SNOMED-CT: 95297066 Physical Exam, Performed: Pulse Exam of Foot Shamir Palacios MD completed SNOMED-CT: 540857739 719622 Current Medications Documented Shamir Palacios MD completed
--- OUTSIDE RECORDS SUMMARY | 2024-08-06 15:17 | XMS_ITS | Data Portability ---
Author Organization [facility] Vincent Fontenot Address [address] [place] [address] Care Team Providers Care Tobacco Prizer Name Role Phone HYUN PAULSON Primary Care Provider Assessment Encounter Date Assessment Date Assessment LastModified by Organization Details LastModified Time 11/01/2023 11/01/2023 Diagnosis and assessment plan of been discussed medicines will be continued labs will be ordered old records will be requested so that we can verify screenings and immunizations follow-up with me in 4 months [email or web address] Not available 11/12/2023 18:15:20 03/06/2024 03/06/2024 caloric [...] consider RSV given her serious lung disease [email or web address] Not available 03/16/2024 16:09:02 06/21/2024 06/21/2024 EKG shows rapid atrial fibrillation with a ventricular response of [address] segment changes. Plan is she probably has pneumonia or COPD exacerbation that has now tipped her into rapid atrial fibrillation. EMS has been summoned she will be transported to the emergency room for further stabilization and management. . I handed off to EMS with copy of EKG and her medication list and problem list. Her is in attendance he will keep me up-to-date whether she is admitted or not but I suspect she will be and they will call upon discharge for follow up [email or web address] Not available 06/22/2024 14:11:26 Plan of Treatment Reminders Order Date Submit Date Provider Last Modified By Organization Details Last Modified Time Details Appointments ANY 15 2024 01:15P Amrik Paulson MD Not available Not available Not available Lab lipid panel, serum 2023 024 [facility], [address], [address], [place], [address], 11/15/2023 07:15:25 CBC w/ auto diff 2023 024 [facility], [address], [address], [place], [address], 11/15/2023 07:15:26 CMP, serum or plasma 2023 024 [facility], [address], [address], [place], [address], 11/15/2023 07:15:25 lipid panel, serum 2023 024 [facility], [address], [address], [place], [address], 03/07/2024 09:39:10 CMP, serum or plasma 2023 024 [facility], [address], [place], [address], 03/07/2024 09:39:11 CBC w/ auto diff 2023 024 [facility], [address], [address], [place], [address], 03/07/2024 09:39:13 urinalysi s, microscop ic 2023 024 [facility], [address], [place], [address], 03/07/2024 09:39:12 Referral None recorded. Procedures None recorded. Surgeries None recorded. Imaging XR, lumbar spine 2023 024 [facility] (Radiology), [address] [place], [address], 03/06/2024 14:42:17 electroca rdiogram 2023 024 [id number] In-Office Order, Internal Use Only DO Not Attach Compendium DO Not Attach Compendium, Do Not Delete/merge, [id number] 06/21/2024 13:34:55 Medication Orders None recorded. Patient TargetsNo targets recorded. Patient Instructions Encounter Date Encounter Id Patient Instructions Last Modified By Organization Details Last Modified Time 03/06/2024 [id number] A healthy lifestyle: care instructions [email or web address] Not available 03/06/2024 12:59:58 Reason for Referral None Reported. Results Created Date Observation Date Name Description Value Unit Range Abnormal Flag Note LastModifiedBy Organization Detail LastModifiedTime 11/14/1911/15/2023 LIPID PANEL cholesterol, total 150 mg/dL 100-19 9 Not Available [facility] ([facility]) [address] [place], [address], 11/15/2023 07:15:25 11/14/19 24 11/15/2023 LIPID PANEL triglyceride s 81 mg/dL 0-149 Not Available [facility] ([facility]) [address] [place], [address], 11/15/2023 07:15:25 11/14/19 24 11/15/2023 LIPID PANEL HDL cholesterol 71 mg/dL >39 Not Available [facility] ([facility]) [address] [place], [address], 11/15/2023 07:15:25 11/14/19 24 11/15/2023 LIPID PANEL VLDL cholesterol patricia 15 mg/dL 5-40 Not Available [facility] ([facility]) [address] [place], [address], 11/15/2023 07:15:25 11/14/19 24 11/15/2023 LIPID PANEL LDL chol calc ([facility]) 64 mg/dL 0-99 Not Available [facility] ([facility]) [address] [facility] [place], [address], 11/15/2023 07:15:25 11/14/19 24 11/15/2023 COMP. METAB OLIC PANEL (14) glucose 97 mg/dL 70-99 Not Available [facility] ([facility]) [address] [facility] [place], [address], 11/15/2023 07:15:25 11/14/19 24 11/15/2023 COMP. METAB OLIC PANEL (14) BUN 6 mg/dL 8-27 below low normal Not Available [facility] ([facility]) [address] [place], [address], 11/15/2023 07:15:25 11/14/19 24 11/15/2023 COMP. METAB OLIC PANEL (14) creatinine 0.91 mg/dL 0.57-1 .00 Not Available [facility] ([facility]) [address] [place], [address], 11/15/2023 07:15:25 11/14/19 24 11/15/2023 COMP. METAB OLIC PANEL (14) eGFR 65 mL/mi n/1.7 3 >59 Not Available [facility] ([facility]) [address] [place], [address], 11/15/2023 07:15:25 11/14/19 24 11/15/2023 COMP. METAB OLIC PANEL (14) BUN/creatini ne ratio 7 12-28 below low normal Not Available [facility] ([facility]) [address] [place], [address], 11/15/2023 07:15:25 11/14/19 24 11/15/2023 COMP. METAB OLIC PANEL (14) sodium 142 mmol/ L 134-14 4 Not Available [facility] ([facility]) [address] [facility] [place], [address], 11/15/2023 07:15:25 11/14/19 24 11/15/2023 COMP. METAB OLIC PANEL (14) potassium 4.7 mmol/ L 3.5-5. 2 Not Available [facility] ([facility]) [address] [facility] [place], [address], 11/15/2023 07:15:25 11/14/19 24 11/15/2023 COMP. METAB OLIC PANEL (14) chloride 100 mmol/ L 96-106 Not Available [facility] ([facility]) [address] [facility] [place], [address], 11/15/2023 07:15:25 11/14/19 24 11/15/2023 COMP. METAB OLIC PANEL (14) carbon dioxide, total 30 mmol/ L 20-29 above high normal Not Available [facility] ([facility]) [address] [facility] [place], [address], 11/15/2023 07:15:25 11/14/19 24 11/15/2023 COMP. METAB OLIC PANEL (14) calcium 9.3 mg/dL 8.7-10 .3 Not Available [facility] ([facility]) [address] [facility] [place], [address], 11/15/2023 07:15:25 11/14/19 24 11/15/2023 COMP. METAB OLIC PANEL (14) protein, total 6.2 g/dL 6.0-8. 5 Not Available [facility] ([facility]) [address] [facility] [place], [address], 11/15/2023 07:15:25 11/14/19 24 11/15/2023 COMP. METAB OLIC PANEL (14) albumin 4.0 g/dL 3.8-4. 8 Not Available [facility] ([facility]) [address] [place], [address], 11/15/2023 07:15:25 11/14/19 24 11/15/2023 COMP. METAB OLIC PANEL (14) globulin, total 2.2 g/dL 1.5-4. 5 Not Available [facility] ([facility]) [address] [place], [address], 11/15/2023 07:15:25 11/14/19 24 11/15/2023 COMP. METAB OLIC PANEL (14) A/G ratio 1.8 1.2-2. 2 Not Available [facility] ([facility]) [address], [place], [address], 11/15/2023 07:15:25 11/14/19 24 11/15/2023 COMP. METAB OLIC PANEL (14) bilirubin, total 0.3 mg/dL 0.0-1. 2 Not Available [facility] ([facility] [address] [facility] [place], [address], 11/15/2023 07:15:25 11/14/19 24 11/15/2023 COMP. METAB OLIC PANEL (14) alkaline phosphatase 111 IU/L 44-121 Not Available [facility] ([facility] [address] [facility] [place], [address], 11/15/2023 07:15:25 11/14/19 24 11/15/2023 COMP. METAB OLIC PANEL (14) AST (SGOT) 13 IU/L 0-40 Not Available [facility] ([facility] [address] [facility] [place], [address], 11/15/2023 07:15:25 11/14/19 24 11/15/2023 COMP. METAB OLIC PANEL (14) ALT (SGPT) 9 IU/L 0-32 Not Available [facility] ([facility]) [address] [facility], [place], [address], 11/15/2023 07:15:25 11/14/1911/15/2023 CBC WITH DIFFE RENTI AL/PL ATELE T WBC 5.0 x10e3 /uL 3.4-10 .8 Not Available [facility] ([facility]) [address] [facility], [place], [address], 11/15/2023 07:15:26 11/14/19 24 11/15/2023 CBC WITH DIFFE RENTI AL/PL ATELE T RBC 3.96 x10e6 /uL 3.77-5 .28 Not Available [facility] ([facility]) [address] [facility], [place], [address], 11/15/2023 07:15:26 11/14/19 24 11/15/2023 CBC WITH DIFFE RENTI AL/PL ATELE T hemoglobin 11.5 g/dL 11.1-1 5.9 Not Available [facility] ([facility]) [address] [facility], [place], [address], 11/15/2023 07:15:26 11/14/19 24 11/15/2023 CBC WITH DIFFE RENTI AL/PL ATELE T hematocrit 35.7 % 34.0-4 6.6 Not Available [facility] ([facility]) [address] [facility], [place], [address], 11/15/2023 07:15:26 11/14/19 24 11/15/2023 CBC WITH DIFFE RENTI AL/PL ATELE T MCV 90 fL 79-97 Not Available [facility] ([facility]) [address] [facility], [place], [address], 11/15/2023 07:15:26 11/14/19 24 11/15/2023 CBC WITH DIFFE RENTI AL/PL ATELE T MCH 29.0 pg 26.6-3 3.0 Not Available [facility] ([facility]) [address], [place], [address], 11/15/2023 07:15:26 11/14/1911/15/2023 CBC WITH DIFFE RENTI AL/PL ATELE T MCHC 32.2 g/dL 31.5-3 5.7 Not Available [facility] ([facility]) [address] [facility], [place], [address], 11/15/2023 07:15:26 11/14/19 24 11/15/2023 CBC WITH DIFFE RENTI AL/PL ATELE T RDW 12.9 % 11.7-1 5.4 Not Available [facility] ([facility]) [address] [facility], [place], [address], 11/15/2023 07:15:26 11/14/19 24 11/15/2023 CBC WITH DIFFE RENTI AL/PL ATELE T platelets 216 x10e3 /uL 150-45 0 Not Available [facility] ([facility]) [address] [facility], [place], [address], 11/15/2023 07:15:26 11/14/19 24 11/15/2023 CBC WITH DIFFE RENTI AL/PL ATELE T neutrophils 63 % notest ab. Not Available [facility] ([facility]) [address] [facility], [place], [address], 11/15/2023 07:15:26 11/14/19 24 11/15/2023 CBC WITH DIFFE RENTI AL/PL ATELE T lymphs 25 % notest ab. Not Available [facility] ([facility]) [address] [facility], [place], [address], 11/15/2023 07:15:26 11/14/19 24 11/15/2023 CBC WITH DIFFE RENTI AL/PL ATELE T monocytes 9 % notest ab. Not Available [facility] ([facility]) [address] [facility], [place], [address], 11/15/2023 07:15:26 11/14/19 24 11/15/2023 CBC WITH DIFFE RENTI AL/PL ATELE T eos 3 % notest ab. Not Available [facility] ([facility]) [address] [facility], [place], [address], 11/15/2023 07:15:26 11/14/19 24 11/15/2023 CBC WITH DIFFE RENTI AL/PL ATELE T basos 0 % notest ab. Not Available [facility] ([facility]) [address] [place], [address], 11/15/2023 07:15:26 11/14/19 24 11/15/2023 CBC WITH DIFFE RENTI AL/PL ATELE T neutrophils (absolute) 3.1 x10e3 /uL 1.4-7. 0 Not Available [facility] ([facility]) [address] [place], [address], 11/15/2023 07:15:26 11/14/19 24 11/15/2023 CBC WITH DIFFE RENTI AL/PL ATELE T lymphs (absolute) 1.3 x10e3 /uL 0.7-3. 1 Not Available [facility] ([facility]) [address] [place], [address], 11/15/2023 07:15:26 11/14/19 24 11/15/2023 CBC WITH DIFFE RENTI AL/PL ATELE T monocytes(ab solute) 0.5 x10e3 /uL 0.1-0. 9 Not Available [facility] ([facility]) [address] [place], [address], 11/15/2023 07:15:26 11/14/19 24 11/15/2023 CBC WITH DIFFE RENTI AL/PL ATELE T eos (absolute) 0.1 x10e3 /uL 0.0-0. 4 Not Available [facility] ([facility]) [address] [facility], [place], [address], 11/15/2023 07:15:26 11/14/19 24 11/15/2023 CBC WITH DIFFE RENTI AL/PL ATELE T baso (absolute) 0.0 x10e3 /uL 0.0-0. 2 Not Available [facility] ([facility]) [address], [place], [address], 11/15/2023 07:15:26 11/14/19 24 11/15/2023 CBC WITH DIFFE RENTI AL/PL ATELE T immature granulocytes 0 % notest ab. Not Available [facility] ([facility]) [address], [place], [address], 11/15/2023 07:15:26 11/14/19 24 11/15/2023 CBC WITH DIFFE RENTI AL/PL ATELE T immature grans (abs) 0.0 x10e3 /uL 0.0-0. 1 Not Available [facility] ([facility]) [address] [facility], [place], [address], 11/15/2023 07:15:26 03/06/20 24 03/07/2024 LIPID PANEL cholesterol, total 164 mg/dL 100-19 9 Not Available [facility] ([facility]) [address] [facility], [place], [address], 03/07/2024 09:39:10 03/06/20 24 03/07/2024 LIPID PANEL triglyceride s 144 mg/dL 0-149 Not Available [facility] ([facility]) [address] [facility], [place], [address], 03/07/2024 09:39:10 03/06/20 24 03/07/2024 LIPID PANEL HDL cholesterol 73 mg/dL >39 Not Available [facility] ([facility]) [address] [facility], [place], [address], 03/07/2024 09:39:10 03/06/20 24 03/07/2024 LIPID PANEL VLDL cholesterol patricia 24 mg/dL 5-40 Not Available [facility] ([facility]) [address] [place], [address], 03/07/2024 09:39:10 03/06/20 24 03/07/2024 LIPID PANEL LDL chol calc ([facility]) 67 mg/dL 0-99 Not Available [facility] ([facility]) [address] [facility], [place], [address], 03/07/2024 09:39:10 03/06/20 24 03/07/2024 COMP. METAB OLIC PANEL (14) glucose 93 mg/dL 70-99 Not Available [facility] ([facility]) [address] [facility], [place], [address], 03/07/2024 09:39:11 03/06/20 24 03/07/2024 COMP. METAB OLIC PANEL (14) BUN 14 mg/dL 8-27 Not Available [facility] ([facility]) [address] [place], [address], 03/07/2024 09:39:11 03/06/20 24 03/07/2024 COMP. METAB OLIC PANEL (14) creatinine 1.04 mg/dL 0.57-1 .00 above high normal Not Available [facility] ([facility]) [address] [place], [address], 03/07/2024 09:39:11 03/06/20 24 03/07/2024 COMP. METAB OLIC PANEL (14) eGFR 55 mL/mi n/1.7 3 >59 below low normal Not Available [facility] ([facility]) [address] [place], [address], 03/07/2024 09:39:11 03/06/20 24 03/07/2024 COMP. METAB OLIC PANEL (14) BUN/creatini ne ratio 13 -28 Not Available [facility] ([facility]) [address] [place], [address], 03/07/2024 09:39:11 03/06/20 24 03/07/2024 COMP. METAB OLIC PANEL (14) sodium 137 mmol/ L 134-14 4 Not Available [facility] ([facility]) [address] [place], [address], 03/07/2024 09:39:11 03/06/20 24 03/07/2024 COMP. METAB OLIC PANEL (14) potassium 4.6 mmol/ L 3.5-5. 2 Not Available [facility] ([facility]) [address] [place], [address], 03/07/2024 09:39:11 03/06/20 24 03/07/2024 COMP. METAB OLIC PANEL (14) chloride 94 mmol/ L 96-106 below low normal Not Available [facility] ([facility]) [address] [place], [address], 03/07/2024 09:39:11 03/06/20 24 03/07/2024 COMP. METAB OLIC PANEL (14) carbon dioxide, total 30 mmol/ L 20-29 above high normal Not Available [facility] ([facility]) [address] [place], [address], 03/07/2024 09:39:11 03/06/20 24 03/07/2024 COMP. METAB OLIC PANEL (14) calcium 9.6 mg/dL 8.7-10 .3 Not Available [facility] ([facility]) [address] [place], [address], 03/07/2024 09:39:11 03/06/20 24 03/07/2024 COMP. METAB OLIC PANEL (14) protein, total 6.4 g/dL 6.0-8. 5 Not Available [facility] ([facility]) [address] [facility] [place], [address], 03/07/2024 09:39:11 03/06/20 24 03/07/2024 COMP. METAB OLIC PANEL (14) albumin 4.1 g/dL 3.8-4. 8 Not Available [facility] ([facility]) [address], [place], [address], 03/07/2024 09:39:11 03/06/20 24 03/07/2024 COMP. METAB OLIC PANEL (14) globulin, total 2.3 g/dL 1.5-4. 5 Not Available [facility] ([facility]) [address] [place], [address], 03/07/2024 09:39:11 03/06/20 24 03/07/2024 COMP. METAB OLIC PANEL (14) bilirubin, total 0.3 mg/dL 0.0-1. 2 Not Available [facility] ([facility]) [address] [place], [address], 03/07/2024 09:39:11 03/06/20 24 03/07/2024 COMP. METAB OLIC PANEL (14) alkaline phosphatase 118 IU/L 44-121 Not Available [facility] ([facility]) [address] [place], [address], 03/07/2024 09:39:11 03/06/20 24 03/07/2024 COMP. METAB OLIC PANEL (14) AST (SGOT) 15 IU/L 0-40 Not Available [facility] ([facility]) [address] [place], [address], 03/07/2024 09:39:11 03/06/20 24 03/07/2024 COMP. METAB OLIC PANEL (14) ALT (SGPT) 8 IU/L 0-32 Not Available [facility] ([facility]) [address] [place], [address], 03/07/2024 09:39:11 08/28/20 24 03/07/2024 MICRO SCOPI C EXAMI NATIO N WBC NONE SEEN /hpf 0-5 Not Available [facility] ([facility]) [address] [facility], [place], [address], 03/07/2024 09:39:12 03/06/20 24 03/07/2024 MICRO SCOPI C EXAMI NATIO N RBC 0-2 /hpf 0-2 Not Available [facility] ([facility]) [address] [facility], [place], [address], 03/07/2024 09:39:12 03/06/20 24 03/07/2024 MICRO SCOPI C EXAMI NATIO N epithelial cells (non renal) NONE SEEN /hpf 0-10 Not Available [facility] ([facility]) [address] [facility], [place], [address], 03/07/2024 09:39:12 03/06/20 24 03/07/2024 MICRO SCOPI C EXAMI NATIO N casts NONE SEEN /lpf nonese en Not Available [facility] ([facility]) [address] [facility], [place], [address], 03/07/2024 09:39:12 03/06/20 24 03/07/2024 MICRO SCOPI C EXAMI NATIO N bacteria NONE SEEN nonese en/few Not Available [facility] ([facility]) [address] [facility], [place], [address], 03/07/2024 09:39:12 03/06/20 24 03/07/2024 CBC WITH DIFFE RENTI AL/PL ATELE T WBC 7.7 x10e3 /uL 3.4-10 .8 Not Available [facility] ([facility]) [address] [facility], [place], [address], 03/07/2024 09:39:13 03/06/20 24 03/07/2024 CBC WITH DIFFE RENTI AL/PL ATELE T RBC 3.86 x10e6 /uL 3.77-5 .28 Not Available [facility] ([facility]) [address] [facility], [place], [address], 03/07/2024 09:39:13 03/06/2003/07/2024 CBC WITH DIFFE RENTI AL/PL ATELE T hemoglobin 11.4 g/dL 11.1-1 5.9 Not Available [facility] ([facility]) [address] [facility], [place], [address], 03/07/2024 09:39:13 03/06/2003/07/2024 CBC WITH DIFFE RENTI AL/PL ATELE T hematocrit 36.4 % 34.0-4 6.6 Not Available [facility] ([facility]) [address] [facility], [place], [address], 03/07/2024 09:39:13 03/06/2003/07/2024 CBC WITH DIFFE RENTI AL/PL ATELE T MCV 94 fL 79-97 Not Available [facility] ([facility]) [address] [place], [address], 03/07/2024 09:39:13 03/06/2003/07/2024 CBC WITH DIFFE RENTI AL/PL ATELE T MCH 29.5 pg 26.6-3 3.0 Not Available [facility] ([facility]) [address] [place], [address], 03/07/2024 09:39:13 03/06/20 24 03/07/2024 CBC WITH DIFFE RENTI AL/PL ATELE T MCHC 31.3 g/dL 31.5-3 5.7 below low normal Not Available [facility] ([facility]) [address] [facility], [place], [address], 03/07/2024 09:39:13 03/06/20 24 03/07/2024 CBC WITH DIFFE RENTI AL/PL ATELE T RDW 12.6 % 11.7-1 5.4 Not Available [facility] ([facility]) [address] [facility], [place], [address], 03/07/2024 09:39:13 03/06/20 24 03/07/2024 CBC WITH DIFFE RENTI AL/PL ATELE T platelets 279 x10e3 /uL 150-45 0 Not Available [facility] ([facility]) [address] [facility], [place], [address], 03/07/2024 09:39:13 03/06/20 24 03/07/2024 CBC WITH DIFFE RENTI AL/PL ATELE T neutrophils 78 % notest ab. Not Available [facility] ([facility]) [address] [facility], [place], [address], 03/07/2024 09:39:13 03/06/20 24 03/07/2024 CBC WITH DIFFE RENTI AL/PL ATELE T lymphs 12 % notest ab. Not Available [facility] ([facility]) [address] [facility], [place], [address], 03/07/2024 09:39:13 03/06/20 24 03/07/2024 CBC WITH DIFFE RENTI AL/PL ATELE T monocytes 9 % notest ab. Not Available [facility] ([facility]) [address] [facility], [place], [address], 03/07/2024 09:39:13 03/06/20 24 03/07/2024 CBC WITH DIFFE RENTI AL/PL ATELE T eos 1 % notest ab. Not Available [facility] ([facility]) [address] [place], [address], 03/07/2024 09:39:13 03/06/20 24 03/07/2024 CBC WITH DIFFE RENTI AL/PL ATELE T basos 0 % notest ab. Not Available [facility] ([facility]) [address] [place], [address], 03/07/2024 09:39:13 03/06/20 24 03/07/2024 CBC WITH DIFFE RENTI AL/PL ATELE T neutrophils (absolute) 5.9 x10e3 /uL 1.4-7. 0 Not Available [facility] ([facility]) [address] [facility], [place], [address], 03/07/2024 09:39:13 03/06/20 24 03/07/2024 CBC WITH DIFFE RENTI AL/PL ATELE T lymphs (absolute) 0.9 x10e3 /uL 0.7-3. 1 Not Available [facility] ([facility]) [address] [facility], [place], [address], 03/07/2024 09:39:13 03/06/20 24 03/07/2024 CBC WITH DIFFE RENTI AL/PL ATELE T monocytes(ab solute) 0.7 x10e3 /uL 0.1-0. 9 Not Available [facility] ([facility]) [address] [facility], [place], [address], 03/07/2024 09:39:13 03/06/20 24 03/07/2024 CBC WITH DIFFE RENTI AL/PL ATELE T eos (absolute) 0.1 x10e3 /uL 0.0-0. 4 Not Available [facility] ([facility]) [address] [facility], [place], [address], 03/07/2024 09:39:13 03/06/20 24 03/07/2024 CBC WITH DIFFE RENTI AL/PL ATELE T baso (absolute) 0.0 x10e3 /uL 0.0-0. 2 Not Available [facility] ([facility]) [address] [facility], [place], [address], 03/07/2024 09:39:13 03/06/20 24 03/07/2024 CBC WITH DIFFE RENTI AL/PL ATELE T immature granulocytes 0 % notest ab. Not Available [facility] ([facility]) [address] [facility], [place], [address], 03/07/2024 09:39:13 03/06/20 24 03/07/2024 CBC WITH DIFFE RENTI AL/PL ATELE T immature grans (abs) 0.0 x10e3 /uL 0.0-0. 1 Not Available [facility] ([facility]) [address] [facility], [place], [address], 03/07/2024 09:39:13 10/02/19 24 10/02/2023 XR, chest No observ ation record ed. [facility] [address] [place], [address], 10/04/2023 09:38:46 03/06/20 24 03/06/2024 XR, lumba r spine No observ ation record ed. [facility] [address] [place], [address], 03/08/2024 09:14:36 06/21/20 elect rocar diogr am No observ ation record ed. [facility] In-Office Order Internal Use Only DO Not Attach Compendium DO Not Attach Compendium, Do Not Delete/merge, [id number] 06/21/2024 11:17:24 06/21/20 24 06/21/2024 elect rocar diogr am No observ ation record ed. [facility] In-Office Order Internal Use Only DO Not Attach Compendium DO Not Attach Compendium, Do Not Delete/merge, [id number] 06/21/2024 11:28:43 06/25/20 24 06/25/2024 US, doppl er, venou s No observ ation record ed. [address], [place], [address], 07/05/2024 23:35:18 07/08/20 24 09/02/2019 MAMMO , diagn ostic , tomos ynthe sis, bilat eral No observ ation record ed. [facility] Not Available 2023 13:32:23 07/08/20 24 05/18/2017 MAMMO , diagn ostic , digit al, bilat eral No observ ation record ed. [facility] Not Available 2023 13:32:23 07/08/20 24 04/26/2016 MAMMO , scree miguelangel, bilat eral No observ ation record ed. [facility] Not Available 2023 13:32:23 Result Notes None recorded. 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 [id number] 9107 Active 2023 Hyun Paulson MD Attn: Telly meyers,[address] [place], [place], [address] [place] [address], [place] [facility] 18:14:46 Anxiety 34922753 Active 2023 Hyun Paulson MD Attn: Telly meyers,[address] [place], [address], [place] [facility] 18:14:47 Chronic hypoxemic respiratory failure 474580693 Active 2023 Hyun Paulson MD Attn: Telly meyers,[address] [place], [address], [place] [facility] 18:14:49 Hyperlipide lisa 81756249 Active 2023 Hyun Paulson MD Attn: Telly meyers,[address] [place], [address], [place] [facility] 18:14:50 Gastroesoph ageal reflux disease without esophagitis 782442374 Active 2023 Hyun Paulson MD Attn: Telly meyers,[address] [facility], [place], [address], [facility] 18:14:53 Problem Notes None recorded. Procedures Surgical History Date Name Laterality Status Provider Name and Address Organization Details Recorded Time Eye Surgery completed Genevieve Frederick [facility] [facility] 11/01/2023 16:41:58 Hernia Repair completed Genevieve Frederick MA [facility] 11/01/2023 16:42:04 Tonsillectomy completed Genevieve Frederick MA [facility] 11/01/2023 16:42:10 Dilation and Curettage completed Genevieve Frederick MA [facility] 11/01/2023 16:42:15 hysterectomy completed Genevieve Frederick MA [facility] 11/01/2023 16:42:21 Imaging Results Imaging Date Name Status LastModified by Organization Details LastModified Time 10/02/2023 XR, chest completed [facility] [address] [place], [address], 10/04/2023 09:38:46 03/06/2024 XR, lumbar spine completed [facility] [address] [place], [address], 03/08/2024 09:14:36 06/21/2024 electrocardiogram completed [facility] In-Off[facility] ce Order Internal Use Only DO Not Attach Compendium DO Not Attach Compendium, Do Not Delete/merge, [id number] 06/21/2024 11:17:24 06/21/2024 electrocardiogram completed [facility] Order Internal Use Only DO Not Attach Compendium DO Not Attach Compendium, Do Not Delete/merge, [id number] 06/21/2024 11:28:43 06/25/2024 US, doppler, venous completed [address], [place], [address], 07/05/2024 23:35:18 09/02/2019 MAMMO, diagnostic, tomosynthesis, bilateral completed [facility] Information not available 07/08/2024 13:32:23 05/18/2017 MAMMO, diagnostic, digital, bilateral completed [facility] Information not available 07/08/2024 13:32:23 04/26/2016 MAMMO, screening, bilateral completed [facility] Information not available 07/08/2024 13:32:23 Procedure Notes None recorded. Medical Equipment None Reported. Allergies Allergen ID Allergen Name Allergen Category Reaction Reaction Severity Criticality Documentation Date Start Date Code Code System Note Provider Name and Address Organization Details Recorded Time [id number] 643ec Product containin g penicilli n and antibioti c (product) medicatio n rash Not available Not available 09/08/2023 95926 05 SNOMED Not Available Not Available Not Available [id number] Benadryl medicatio n rash Not available Not available 09/08/2023 92382 7 RxNorm Not Available Not Available Not Available [id number] 2824e Vaccine product containin g only Clostridi um tetani antigen (medicina l product) medicatio n Not available Not available Not available 11/01/2023 73742 2003 SNOMED Not Available Not Available Not Available Medications Name Sig Start Date Stop Date [...] Avai lable Vitals Date Recorded Body weight Provider Name an d Address Organization Details Last Updated DateTime 11/01/2023 80780.98 g Genevieve FrederickSWATHI [facility] 10/31 16:46:58 Date Recorded Heart rate Provider Name an d Address Organization Details Last Updated DateTime 11/01/2023 68 /min Genevieve FrederickSWATHI [facility] 10/31 16:48:43 Date Recorded Oxygen saturation Oxygen saturation in Arterial blood by Pulse oximetry Provider Name and Address Organization Details Last Updated DateTime 11/01/2023 97 % 97 % Genevieve Frederick SWATHI [facility] 11/01/2023 16:48:47 Date Recorded Body height Provider Name an d Address Organization Details Last Updated DateTime 03/06/2024 167.64 cm Camilla Montgomery [facility] 03/06/2024 11:31:37 Date Recorded Body mass index (BMI) Body weight Provider Name and Address Organization Details Last Updated DateTime 03/06/2024 30.5 kg/m2 85667.96 g Camilla Montgomery [facility] 11:31:45 Date Recorded Heart rate Provider Name an d Address Organization Details Last Updated DateTime 03/06/2024 81 /min Camilla Montgomery [facility] 03/06/2024 11:32:23 Date Recorded Oxygen saturation Oxygen saturation in Arterial blood by Pulse oximetry Inhaled oxygen flow rate Provider Name and Address Organization Details Last Updated DateTime 03/06/2024 94 % 94 % 3 L/min Camilla Montgomery [facility] 03/06/2024 11:32:51 Date Recorded Body height Provider Name an d Address Organization Details Last Updated DateTime 06/21/2024 167.64 cm Camilla Montgomery [facility] 06/21/2024 10:02:48 Date Recorded Heart rate Provider Name an d Address Organization Details Last Updated DateTime 06/21/2024 144 /min Camilla Montgomery [facility] 06/21/2024 10:12:02 Date Recorded Oxygen saturation Oxygen saturation in Arterial blood by Pulse oximetry Inhaled oxygen flow rate Provider Name and Address Organization Details Last Updated DateTime 06/21/2024 92 % 92 % 4 L/min Camilla Ulises [facility] 06/21/2024 10:12:07 Date Recorded Body height Provider Name an d Address Organization Details Last Updated DateTime 08/06/2024 167.64 cm Merari Harkins MA [facility] 14:34:47 Date Recorded Body mass index (BMI) Body weight Provider Name and Address Organization Details Last Updated DateTime 08/06/2024 29.1 kg/m2 15448.99 g Merari Harkins MA [facility] 0 08/06/2024 14:37:21 Date Recorded Heart rate Provider Name an d Address Organization Details Last Updated DateTime 08/06/2024 75 /min Merari Harkins MA [facility] 14:51:10 Date Recorded Oxygen saturation Oxygen saturation in Arterial blood by Pulse oximetry Inhaled oxygen flow rate Provider Name and Address Organization Details Last Updated DateTime 08/06/2024 74 % 74 % 3 L/min Merari Harkins MA [facility] 08/06/2024 14:50:22 Date Recorded Systolic blood pressure Diastolic blood pressure Provider Name and Address Organization Details Last Updated DateTime 11/01/2023 132 mm[Hg] 74 mm[Hg] Genevieve Frederick MA [facility] 11/01/2023 16:49:00 Date Recorded Systolic blood pressure Diastolic blood pressure Provider Name and Address Organization Details Last Updated DateTime 03/06/2024 148 mm[Hg] 68 mm[Hg] Camilla Montgomery MA [facility] 02/08 11:34:37 Date Recorded Systolic blood pressure Diastolic blood pressure Provider Name and Address Organization Details Last Updated DateTime 06/21/2024 110 mm[Hg] 60 mm[Hg] Camilla Montgomery MA [facility] 06/09 10:14:11 Date Recorded Systolic blood pressure Diastolic blood pressure Provider Name and Address Organization Details Last Updated DateTime 08/06/2024 128 mm[Hg] 64 mm[Hg] Merari Harkins MA [facility] 08/06/2024 14:54:41 Social History Question Answer Notes LastModified by Organizat ion Details LastModified Time Tobacco Smoking Status Former Smoker Genevieve Frederick [place] null, [place] [facility] 11/01/2023 16:43:16 Do You Have An Advance [...] Date Of Your Most Recent Tobacco Screening? 08/06/2024 Information not available 08/06/2024 Do You Use Your Seat Belt Or Car Seat Routinely? Yes Information not available 03/06/2024 Do You Have Smoke And Carbon Monoxide Detectors In Your Home? Yes Information not available 03/06/2024 How Much Tobacco Do You Smoke? 1 PPD Information not available 11/01/2023 Do You Feel Stressed (tense, Restless, Nervous, Or Anxious, Or Unable To Sleep At Night)? US9820-2 Information not available 06/21/2024 Do You Use Any Illicit Or Recreational Drugs? No Information not available 03/06/2024 Do You Use Sunscreen Routinely? Yes Information not available 03/06/2024 Has Tobacco Cessation Counseling Been Provided? No Information not available 08/06/2024 On What Date Was Tobacco Cessation Counseling [...] lable 11/01/2023 16:42:49 Medical History Condition Response Atrial Fibrillation Y High Blood Pressure Y Depression N COPD Y Anxiety Disorder Y Muscle, Joint, or Bone Problems N Acid Reflux (GERD) Y Stroke N High Cholesterol Y Liver Disease N Headaches N Kidney or Bladder Problems N Thyroid Problems N GI Problems N Skin Problems N Heart Attack (NC) N Diabetes N Seizures/Epilepsy N Asthma Y Allergies Y Hepatitis N Heart Failure N Osteoporosis N Gynecological HistoryNo gynecological history recorded. Obstetrics History GPAL:G 0 P 0 0 0 0 Immunizations Vaccine Type Date Status Note Provider Nam e and Address Organization Details Recorded Time Influenza, high-dose, quadrivalent, PF 0 completed Merari Hark[place] [facility] 08/06/2024 14:33:46 Influenza, high-dose, quadrivalent, PF 1 completed Merari Hark[place] [facility] 08/06/2024 14:33:46 Influenza, adjuvanted, quadrivalent, PF 3 completed Merari [place] [facility] 08/06/2024 14:33:46 Influenza, adjuvanted, quadrivalent, PF 2 [place] SWATHI [place] [facility] 08/06/2024 14:33:46 COVID-19, mRNA, LNP-S, PF, 100 mcg/0.5mL dose or 50 mcg/0.25mL dose 1 [place] SWATH[place] [facility] 08/06/2024 14:33:46 COVID-19, mRNA, LNP-S, PF, 100 mcg/0.5mL dose or 50 mcg/0.25mL dose 1 [place] SWATH[place] [facility] 08/06/2024 14:33:46 COVID-19, mRNA, LNP-S, PF, 100 mcg/0.5mL dose or 50 mcg/0.25mL dose 2 [place] SWATH[place] [facility] 08/06/2024 14:33:46 COVID-19, mRNA, LNP-S, PF, 100 mcg/0.5mL dose or 50 mcg/0.25mL dose 1 [place] SWATH[place] [facility] 08/06/2024 14:33:46 COVID-19, mRNA, LNP-S, bivalent, PF, 50 mcg/0.5 mL or 25mcg/0.25 mL dose 2 [place] SWATH[place] [facility] 08/06/2024 14:33:46 COVID-19, mRNA, LNP-S, bivalent, PF, 50 mcg/0.5 mL or 25mcg/0.25 mL dose 2 [place] SWATH[place] [facility] 08/06/2024 14:33:46 RSV, recombinant, protein subunit RSVpreF, adjuvant reconstituted, 0.5 mL, PF 3 [place] SWATH[place] [facility] 08/06/2024 14:33:46 COVID-19, mRNA, LNP-S, PF, 50 mcg/0.5 mL 3 [place] SWATH[place] [facility] 08/06/2024 14:33:46 pneumococcal polysaccharide PPV23 5 completed Merari [place] [facility] 08/06/2024 14:33:46 influenza, unspecified formulation 2 completed Merari Harkins[place] [facility] 08/06/2024 14:33:46 Pneumococcal conjugate PCV 13 8 completed Merari H[place] [facility] 08/06/2024 14:33:46 Influenza, high-dose, trivalent, PF 8 completed Merari Harkins[place] [facility] 08/06/2024 14:33:46 Influenza, high-dose, trivalent, PF 9 completed Merari [place] [facility] 08/06/2024 14:33:46 COVID-19, mRNA, LNP-S, PF, 50 mcg/0.5 mL 4 completed Merari [place] [facility] 08/06/2024 14:33:53 Influenza, high-dose, trivalent, PF 4 completed Merari Harkins[place] [facility] 08/06/2024 14:33:53 Past Encounters Encounter ID Performer Location Encounter Start Date Encounter Closed Date Diagnosis/Indication Diagnosis SNOMED-CT Code Diagnosis ICD10 Code Diagnosis Note [id number] MD Jennifer Recinos (Adult Med) [address] [place] [phone] 11/01/2023 16:30:05 11/01/2023 17:38:54 Atrial fibrillation 12725010 I48.91 Essential hypertension 77981386 I10 Asthma-chr onic obstructive pulmonary disease overlap syndrome 7798163326 7925648 J44.9 Anxiety 35769575 F41.9 Chronic hy poxemic respiratory failure 671970854 J96.11 Hyperlipidemia 63331497 E78.5 Gastroesop hageal reflux disease without esophagitis 452853208 K21.9 [id number] MD Jennifer Recinos (Adult Med) [address] [place] [phone] 03/06/2024 11:11:58 03/06/2024 12:17:28 Essential hypertension 72206036 I10 Obesity 844094720 E66.8 Low back pain 882811038 M54.50 Asthma-chr onic obstructive pulmonary disease overlap syndrome 7999143729 8887985 J44.9 Anxiety 99057279 F41.9 Atrial fibrillation 4943 6004 I48.91 Chronic hy poxemic respiratory failure 172849110 J96.11 Gastroesop hageal reflux disease without esophagitis 334156836 K21.9 Hyperlipidemia 24423043 E78.5 [id number] MD Jennifer Recinos (Adult Med) [address] [place] [phone] 0 06/21/2024 10:01:05 06/21/2024 10:56:58 Dyspnea 060795255 R06.00 Atrial fibrillation 4943 6004 I48.91 Asthma-chr onic obstructive pulmonary disease overlap syndrome 5736437038 7666184 J44.9 Anxiety 48783425 F41.9 Essential hypertension 21472738 I10 Gastroesop hageal reflux disease without esophagitis 036184368 K21.9 [id number] Shruthi Mckeon MA [facility] (Adult Med) [address] [place] [address] [phone] 0 08/06/2024 14:18:04 08/06/2024 15:19:44 Body mass index 25-29 - overweight 209887001 Z68.29 Overweight 289300654 E66 .3 Health Concerns Section Related Observation LastModified by Organization Detai ls LastModified Time None Recorded Concern Status LastModified by Organization Details LastModified Time None Recorded Advance Directives Directive N: Payers Encounter Date Sequence Insurance Name Policy Number Policy Flannery Covered Member ID Flannery Member ID Guarantor Name 11/01/2023 1 [place] [id number] Malika Knight [id number] Malika Knight 11/01/2023 1 [place] Malika Knight [id number] Malika Knight 03/06/2024 1 [place] [id number] Malika Knight [id number] Malika Knight 03/06/2024 1 [place] Malika Knight [id number] Malika Knight 06/21/2024 1 [place] Malika Knight [id number] Malika Knight Notes Date Note Type [...] well Hyun Paulson MD Attn: Accounting,[address] [facility], [place], [address], [facility] 11/12/2023 18:15:55 03/06/2024 text/html 78-year-old with asthma [...] incontinence. Recently started on chlorthalidone by her artist agent in the last couple of weeks because her blood pressure was up and she says it is actually better today Hyun Paulson MD Attn: Accounting,[address] [facility], [place], [address], [place] [facility] 03/16/2024 16:09:19 06/21/2024 text/html patient came in for regular medical follow up it has been she has been sick for about the past 3 days and now is experiencing nausea shortness of breath chest tightness and dizziness. Her anxiety is high her blood pressure at home has been stable she says and that is 110/50 here with regards to GERD no nausea no vomiting initially her pulse ox was about 88 and we increased her oxygen to 4 L as she was on 2 Hyun Paulson MD Attn: Accounting,[address] [place], [address], [place] [facility] 06/22/2024 14:11:44 OBGyn Episode No OBEpisode recorded.
--- OUTSIDE RECORDS SUMMARY | 2024-08-06 15:18 | XMS_ITS | Clinical Summary ---
Author Organization [facility] Address [address] [place] [phone] Phone Care Team Providers Care Pocket Operator Name Role Phone Unavailable Primary Care Provider Unavailabl e Social History Tobacco Use Types Packs/Day Years Used Date Smoking Tobacco: Never Assessed Comments Unknown Sex and Gender Information Value Date Recorded Sex Assigned at Not on file Legal Sex Female 12:33 PM CDT Gender Identity Not on file Sexual Orientation Not on file Plan of Treatment Health Maintenance Due Date Last Done Comments DTAP/TDAP/TD VACCINES (1 - Tdap) 1965 PNEUMOCOCCAL VACCINE 65+ YEARS (1 of 1 - PCV) 03/02/19 96 ZOSTER VACCINE (1 of 2) 1996 OSTEOPOROSIS SCREENING 2011 RSV VACCINE (60+ or ) (1 - 1-dose 75+ series) 2021 INFLUENZA VACCINE (#1) 2024
[2024-08-06 15:51] LABS: Basophils Percent Auto 0.2 % (0.2-1.2); Eosinophils Percent Auto 0.2 % (0-4.4); Hematocrit 35.3 % (37.0-47.0); Hemoglobin 10.4 g/dL (12.0-15.0); Immature Granulocyte Absolute 0.07 K/mm3 (0.00-0.031); Immature Granulocyte Percent A 0.8 % (0-0.5); Lymphocytes Absolute Auto 0.62 K/mm3 (0.9-3.2); Mean Corpuscular HGB Conc 29.5 g/dl (32-36); Mean Corpuscular Hemoglobin 28.3 pg (26-34); Mean Corpuscular Volume 95.9 fl (80-100); Mean Platelet Volume 9.2 fl (7.4-10.4); Monocytes Absolute Auto 0.5 K/mm3 (0.1-0.6); Monocytes Percent Auto 5.8 % (2.6-8.5); Neutrophils Absolute Auto 7.6 K/mm3 (1.3-6.7); Platelet Count Result 216 k/mm3 (150-375); Red Blood Count 3.68 M/mm3 (4.2-5.4); Red Cell Distribution Width 13.4 % (11.5-14.5); White Blood Count 8.9 K/mm3 (4.5-10.0)
--- OUTSIDE RECORDS SUMMARY | 2024-08-06 15:55 | XMS_ITS | Encounter Summary ---
Author Organization [facility] Address [address] [place] [address] Care Team Providers Care Coke Production Heater Name Role Phone Unavailable Primary Care Provider Unavailabl e Encounter Details Date Type Department Care Team (Late st Contact Info) Description 04/30/2015 Lab Requisition [facility] [address] [place] [address] [facility], External Provider [address] [place] [address] Social History Tobacco Use Types Packs/Day Years [...] VE Non-react khadar 04/30/2015 3:40 PM CDT [facility] Comment: If a patient is known to be at high risk for HCV infection, or is symptomatic, and the physician's suspicion of HCV infection is high, HCV RNA testing is often employed and is of diagnostic value, even after an initial negative anti-HCV test result. Signal to cutoff index is <1.00. Blood 04/30/2015 12:0 8 PM CDT 04/30/2015 1:35 PM CDT External Provider [facility] CHEMISTRY ORDERABLES Fin al Result [facility] CLIA# [id number] [address] [place] [address] * HEPATITIS B SURFACE ANTIGEN (04/30/2015 12:08 PM CDT) HEPATITIS B SURFACE AG NON-REACTI VE Non-reacti ve 04/30/2015 3:40 PM CDT [facility] Blood 04/30/2015 12:0 8 PM CDT 04/30/2015 1:35 PM CDT External Provider [facility] CHEMISTRY ORDERABLES Fin al Result Performing Organization Address [facility] de Phone Number [facility] CLIA# [id number] [address] [place] [address] * NEEDLESTICK EXPOSURE PANEL (04/30/2015 12:08 PM CDT) Pathologist [facility] RAPID HIV SCREEN NON-REACTI VE Non-Reacti ve 04/30/2015 2:43 PM CDT [facility] Comment:Results called to saulo sprague by ISA ASCENCIO at 2:42 PM on 04/30/2015 and read back verified. Blood 04/30/2015 12:0 8 PM CDT 04/30/2015 1:35 PM CDT External Provider [facility] CHEMISTRY ORDERABLES COM Final Result [facility] CLIA# [id number] [address] [place] [address] documented in this encounter Visit Diagnoses Not on filedocumented in this encounter
--- OUTSIDE RECORDS SUMMARY | 2024-08-06 15:56 | XMS_ITS | Clinical Summary ---
Author Organization [facility] Address [address] [place] [phone] Phone Care Team Providers Care Care Connector Name Role Phone Unavailable Primary Care Provider [...]
--- OUTSIDE RECORDS SUMMARY | 2024-08-06 15:56 | XMS_ITS | CONTINUITY OF CARE DOCUMENT ---
Author Name ji workman Address Unknown Organization [facility] Address [address] [address] [place] [address] Phone [phone] Care Team Providers Care Electronic Engraver Name Role Phone Shamir Palacios MD Unavailable HYUN FUNK MD Unavailable HYUN FUNK MD Unavailable [phone] PROBLEMS Condition Status Date Provider Notes COPD [...] In-person encounter Office Visit Shamir Palacios MD [facility] - In-person encounter Office Visit Shamir Palacios MD [facility] Tachypnea - In-person encounter Office Visit Shamir Palacios MD [facility] - In-person encounter Office Visit Shamir Palacios MD [facility] - In-person encounter Office Visit Shamir Palacios MD [facility] - In-person encounter Office Visit Shamir Palacios MD [facility] - In-person encounter Office Visit Shamir Palacios MD [facility] - In-person encounter Office Visit Shamir Palacios MD [facility] Cardiology examination - In-person encounter Office Visit Shamir Palacios MD [facility] Family History of Hyperlipidemia:Famil y History of Hypertension:Former smoker - In-person encounter Office Visit Shamir Palacios MD [facility] - In-person encounter Office Visit Shamir Palacios MD [facility] - In-person encounter Office Visit Vanessa Barney MD [facility] - In-person encounter Office Visit Shamir Palacios MD [facility] - In-person encounter Office Visit Shamir Palacios MD [facility] - In-person encounter Office Visit Shamir Palacios MD [facility] - In-person encounter Office Visit Shamir Palacios MD [facility] - In-person encounter Office Visit Shamir Palacios MD [facility] - In-person encounter Office Visit Shamir Palacios MD [facility] - In-person encounter Office Visit Shamir Palacios MD [facility] Shortness of breath - In-person encounter Office Visit Shamir Palacios MD [facility] - In-person encounter Office Visit Shamir Palacios MD [facility] - In-person encounter Office Visit Shamir Palacios MD [facility] - In-person encounter Office Visit Shamir Palacios MD [facility] Atrial fibEdemaHypercholest erolemia, mixed - In-person encounter Office Visit Shamir Palacios MD [facility] - In-person encounter Office Visit Shamir Palacios MD [facility] CHEST PAIN-01/18 NUC NEG EF [id number] [...] Lucho Palacios MD weight E&M 185 [lb_av] [facility] blood pressure, diastolic 90 mm[Hg] [facility] blood pressure, cuff size regular [facility] blood pressure, systolic 174 mm[Hg] [facility] 96 /min [facility] oxygen saturation, oximetry 85 % [facility] respiratory rate E&M 22 /min Sunitha Amrik luke height E&M 66 [in_i] [facility] Body Mass Index (Ratio) 30.02 kg/m2 Sean hall Sherry blood pressure, diastolic 95 mm[Hg] [facility] blood pressure, systolic 136 mm[Hg] Cecille [...] Ja rret blood pressure, systolic 157 mm[Hg] [facility] pulse rate 80 /min Justin Inhaled O2 3 L/min Justin respiratory rate E&M 16 /min Justin oxygen saturation, oximetry 92 % Justin weight E&M 189 [lb_av] Justin height E&M 66 [in_i] Justin Body Mass Index (Ratio) 31.31 kg/m2 Lucho Palacios MD blood pressure, cuff size regular Ke rri Gruene blood pressure, diastolic 80 mm[Hg] Ke rri Gruenenf blood pressure, systolic 190 mm[Hg] [facility] Inhaled O2 3 L/min Sade Yates oxygen saturation, oximetry 85 % Sade Barrera respiratory rate E&M 14 /min Sade elliott pulse rate 89 /min Sade aYtes [facility] weight E&M 194 [lb_av] Sade Aimeneangelito er height E&M 66 [in_i] Sade Yates [facility] Body Mass Index (Ratio) 30.82 kg/m2 Lucho [...] blood pressure, diastolic 86 mm[Hg] Cristo enzo [place] blood pressure, systolic 130 mm[Hg] Gunjan rice Prince oxygen saturation, oximetry 97 % Simin Prince respiratory rate E&M 16 /min Simin [place] pulse rate 93 /min Simin Prince weight [...] Holly Inhaled O2 3 L/min Sade Trudy [facility] oxygen saturation, oximetry 99 % Sade Holly [...] Andrea Malone bret weight E&M 178.4 [lb_av] nAdrea Juancho paul height E&M 66 [in_i] Andrea [...] elliott pulse rate 86 /min Sade Trudy [facility] weight E&M 179 [lb_av] Sade Aimevanessaangelito [facility] height E&M 66 [in_i] Sade Manzanaresangelito [facility] blood pressure, diastolic 72 mm[Hg] Me emre Luna blood pressure, systolic 126 mm[Hg] Belkys awtkins Luna pulse rate 80 /min Angela Luna [...] eph [place] pulse rate 82 /min Rogelio [place] oxygen saturation, oximetry 95 % [facility] E&M 20 /min [facility] weight E&M 206.4 [lb_av] [facility] ALLERGIES Allergy Name Onset Date Reaction [...] tablet,delayed release (DR/EC) active Ana Maria Silver [employer]PER[employer] Eliquis 5 mg tablet active TAKE 1 TABLET BY MOUTH TWICE DAILY Peg Rivers NP diltiazem HCl 240 mg capsule,extended release 24hr active Take 1 capsule by mouth once a day Peg Rivers NP Eliquis 5 mg tablet completed - Justin Rodriguez aspirin 81 mg tablet,delayed release (DR/EC) completed Take 1 tablet by mouth once a day - Ana Maria Silver [employer] UP OPERATOR Eliquis 5 mg tablet completed TAKE 1 [...] twice a day - Ana Maria Rossimijoana [employer] UP OPERATOR MULTIVITAMINS CAPS active 1 tablet once a [...] tablet once a day Ana Maria Ventimiglarminda [employer] UP OPERATOR Singulair 10 mg tablet active 1 tablet once a day Angus Fisher atorvastatin 40 mg tablet active 1 tablet once a day Shamir Palacios MD SOCIAL HISTORY Date Observation Value Provider drug use no Verah Bonareri [employer] alcohol use no Verah Bonareri [employer] smoking, year quit 1997 Peg Cordon [employer] number of years as a smoker 25 a Andreinaangeline Bonareri [employer] smoking history, tot al pack/day 2 Verah Bonareri [employer] cigarette use yes Verah Bonareri [employer] smoking status Former smoker Peg Bonare ri [employer] drug use no Sunitha Hernandez alcohol use no Sunitha Hernandez smoking, year quit 1997 [facility] number of years as a smoker 25 a Sunitha Hernandez smoking history, tot al pack/day 2 Sunitha Hernandez cigarette use yes Sunitha Hernandez smoking status Former smoker Sunitha Hernandez drug use no Verah Bonareri [employer] alcohol use no Verah Bonareri [employer] smoking, year quit 1997 Peg Cordon [employer] number of years as a smoker 25 a Peg Rivers [employer] smoking history, tot al pack/day 2 Peg Rivers [employer] cigarette use yes Peg Rivers [employer] smoking status Former smoker Peg Leo ri [employer] drug use no Ana Maria Ventimig cassie [employer] alcohol use no Ana Maria Ventimig cassie [employer] smoking status Former smoker Ana Maria Venti miglia [employer] OPERATOR drug use no Ana Maria Ventimig cassie [employer] OPERATOR alcohol use no Ana Maria Ventimig cassie [employer] O[employer] smoking status Former smoker Ana Maria Venti miglia [facility] social history E&M Marital Statu s: L [...] atmilton is a former smoker. Allie Ravinder [employer] social history reviewed E&M revi ewed - no changes required Allie Ravinder [employer] physical exercise, frequency, days per week no [...] or m ore LinkLog smoking status Quit [facility] MENTAL STATUS Date Observation Value Provider assessment [...] Policy type / Coverage type [employer] [place] Medicare [place] [id number] [place] [id number] ADVANCE DIRECTIVES Name Date DISCUSSED - NO DECISION MADE TREATMENT PLAN Date Name Performer [id number],S,weight loss e ncouraged. [facility] [id number],S, H er updated medication list for this problem includes: Atorvastatin 40 Mg Tablet (Atorvastatin) ..... 1 tablet once a day [facility] [id number],S,B P 157/72 W ill monitor c sreekanth present medication regimen H er updated medication list for this problem includes: Diltiazem Hcl 240 Mg Capsule,extended Release 24hr (Diltiazem hcl) ..... Take 1 capsule by mouth once a day Losartan 50 Mg Tablet (Losartan) ..... Take 1 tablet once a day [facility] [id number],S,c hronic SOB in setting of COPD. She is O2 dependent at [facility] [id number],S,C urrently rate is regular and controlled on exam. Will continue CCB. On eliquis for AC and tolerating well [facility] [id number],C, H er updated medication list for this problem includes: Atorvastatin 40 Mg Tablet (Atorvastatin) ..... 1 tablet once a day [facility] [id number],S,r emains on nebs and inhaler. Follow with pulmonary H er updated medication list for this problem includes: Ipratropium-albuterol 0.5 Mg-3 Mg(2.5 Mg Base)/3 Ml Solution For Nebulization (Ipratropium-albuterol) ..... Inhale as needed Singulair 10 Mg Tablet (Montelukast) ..... 1 tablet once a day Trelegy Ellipta 200-62.5-25 Mcg Blister With Device (Inxyegrtawv-vbqvvorur-lkqktyct) ..... 1 puff once a day [facility] [id number],S,B P 190/80 on arrival. On recheck was [...] ..... Take 1 tablet once a day [facility] [id number],S,T his is chronic in the setting of [...] ..... Take 1 tablet once a day [facility] [id number],S,P atient rate controlled today. Diltiazem increased at [...] a day Orders: 9 9214 MOD 30-39min (CPT-48523) M onitor - Telemetry (Mobile Cardiac) (CPT-45590) Ana Maria Ventimiglia [employer] OPER[employer] [id number],B,Maintains sin Shamir Palacios MD [id number],W, Shamir Palacios MD [id number],S, Shamir Palacios MD [id number],W, Shamir Palacios MD [id number],S, Shamir Palacios MD [id number],B, Shamir Palacios MD [id number],S, O n supplemental oxygen. has COPD and emphysema. Sees pulmonary Shamir Palacios MD [id number],B, B P today: 130/86 P rior BP: 140/90 (05/03/2021) Her updated medication list for this problem includes: Losartan 50 Mg Tablet (Losartan) ..... Take 1 tablet once a day Diltiazem Hcl 120 Mg Capsule,extended Release 24hr (Diltiazem hcl) ..... Take 1 capsule daily Shamir Palacios MD [id number],B, S he has no palpitations and hasn't had any documented afib in a long time. I'll stop her eliquis and just have her take an 81mg baby aspirin daily. Her updated medication list for this problem includes: Aspirin 81 Mg Tablet,delayed Release (dr/ec) (Aspirin) ..... Take 1 tablet by mouth once a day Shamir Palacios MD [id number],S, S table on supplemental O2, Emphysema, COPD. Shamir Palacios MD [id number],S, N o chest pain Shamir Palacios MD [id number],S, Shamir Palacios MD [id number],C, C ontinue eliquis for stroke prophylaxis N SR on EKG Shamir Palacios MD [id number],C, S table on supplemental O2, Emphysema, COPD. [...] Trelegy Ellipta 200-62.5-25 Mcg Blister With Device (Opccitqgjdn-cyqdbwrwa-dfehlaya) ..... 1 puff once a day Peg [...] Trelegy Ellipta 200-62.5-25 Mcg Blister With Device (Tacetzaryha-rgncqozum-fgcndkjj) ..... 1 puff once a day Shamir [...] Trelegy Ellipta 200-62.5-25 Mcg Blister With Device (Xhqgwlwuyti-ovywansuf-kenzehhb) ..... 1 puff once a day Peg [...] Cardiology:weight loss encourage d. Ana Maria Silver [facility] Cardiology: H er updated medication list for this problem includes: Atorvastatin 40 Mg Tablet (Atorvastatin) ..... 1 tablet once a day Ana Maria Silver [facility] Cardiology:BP 157/72 W ill monitor c sreekanth present medication regimen H er updated medication list for this problem includes: Diltiazem Hcl 240 Mg Capsule,extended Release 24hr (Diltiazem hcl) ..... Take 1 capsule by mouth once a day Losartan 50 Mg Tablet (Losartan) ..... Take 1 tablet once a day [facility] Cardiology:chronic S OB in setting of COPD. She is O2 dependent at [facility] Cardiology:Currently rate is regular and controlled on exam. Will continue CCB. On eliquis for AC and tolerating well [facility] Cardiology: H er updated medication list for this problem includes: Atorvastatin 40 Mg Tablet (Atorvastatin) ..... 1 tablet once a day [facility] Cardiology:remains o n nebs and inhaler. Follow with pulmonary H er updated medication list for this problem includes: Ipratropium-albuterol 0.5 Mg-3 Mg(2.5 Mg Base)/3 Ml Solution For Nebulization (Ipratropium-albuterol) ..... Inhale as needed Singulair 10 Mg Tablet (Montelukast) ..... 1 tablet once a day Trelegy Ellipta 200-62.5-25 Mcg Blister With Device (Mkdupxmisri-rdldluwcu-jendphxv) ..... 1 puff once a day [facility] Cardiology:BP 190/80 on arrival. On recheck was [...] ..... Take 1 tablet once a day [facility] Cardiology:This is c hronic in the setting [...] tablet once a day Ana Maria Adrianne [facility] Cardiology:Patient r ate controlled today. Diltiazem increased [...] a day Orders: 9 9214 MOD 30-39min (CPT-24076) M onitor - Telemetry (Mobile Cardiac) (CPT-20682) Ana Marialorenzo Silver [facility] Cardiology:Maintains sinus Shamir Palacios MD Cardiology Shamir [...] episodes of SVT. Will swtich her from [facility] to Cardizem 120mg po daily. Shamir Palacios [...] Tele Complete Echo Complete Echo DLCO - 97587 FRC - 39747 FVC - 16222 Mobile Cardiac Tele Complete Echo Mobile Cardiac [...] completed EKG Shamir Palacios MD completed SNOMED-CT: 62055937 Physical Exam, Performed: Pulse Exam of Foot Shamir Palacios MD completed SNOMED-CT: 751711038 125530 Current Medications Documented Shamir Palacios MD completed BLOOD COUNT HEMOGLOBIN Shamir Palacios MD completed FVC - 50354 Shamir Palacios MD complete d FRC - 56278 Shamir Palacios MD complete d DLCO - 53188 Shamir Palacios MD complet ed SNOMED-CT: 10481218 Physical Exam, Performed: Pulse Exam of Foot Shamir Palacios MD completed SNOMED-CT: 157897079 300650 Current Medications Documented Shamir Palacios MD completed Event Monitor Sophia Tomlin completed SNOMED-CT: 66435569 Physical Exam, Performed: Pulse Exam of Foot Shamir Palacios MD completed EKG Shamir Palacios MD completed SNOMED-CT: 434703130 167722 Current Medications Documented Shamir Palacios MD completed SNOMED-CT: 58646616 Physical Exam, Performed: Pulse Exam of Foot Shamir Palacios MD completed SNOMED-CT: 523976202 258333 Current Medications Documented Shamir Palacios MD completed
[2024-08-06] MEDS: ALBUTEROL SULFATE NEB 2.5 MG/3 ML INH 5 MG INHALATION (16:00)
[2024-08-06 16:02] LABS: Alanine Aminotransferase 15 U/L (6-35); Albumin Level 3.7 g/dL (3.5-5.1); Alkaline Phosphatase 84 U/L (38-126); Anisocytosis 1+; Aspartate Amino Transferase 22 U/L (14-36); Bilirubin,Total 0.6 mg/dL (0.2-1.3); Blood Urea Nitrogen 17 mg/dL (7-17); Calcium 8.7 mg/dL (8.4-10.2); Carbon Dioxide > 40 mmol/L (22-30); Chloride 89 mmol/L (98-107); Estimated CRCL calculation 42 ml/min; Estimated Glomerular Filt Rate 56; Glucose 107 mg/dL (65-110); Platelet Estimate Adequate (Adequate); Potassium 3.8 mmol/L (3.4-5.0); Schistocytes None Seen; Sodium 137 mmol/L (137-145)
[2024-08-06 16:03] LABS: INR 1.3
[2024-08-06 16:04] LABS: Partial Thromboplastin Time 30.3 Seconds (22.3-36.8)
--- NOTE | 2024-08-06 16:05 | PCRCNOTE ---
WAS UNABLE TO OBTAIN AN AMPLE ABG SAMPLE; PT. REFUSED TO BE STUCK AGAIN. DR. DRISCOLL NOTIFIED.
[2024-08-06 16:08] LABS: NT Pro B Type Natriuretic Pept 206 pg/mL (19.9-100)
[2024-08-06 16:26] LABS: Influenza A QL RT-PCR Negative (Negative); Influenza B QL RT-PCR Negative (Negative); RSV RNA, RT-PCR Negative (Negative); SARS-CoV-2 RNA PCR Negative (Negative)
--- NOTE | 2024-08-06 17:15 | ED.GENADULT ---
HPI - General Adult General Chief complaint: Shortness of Breath/Dyspnea Stated complaint: SOB Time Seen by Provider: 08/06/24 15:19 History of Present Illness HPI narrative: 79-year-old female presents to the emergency department for evaluation for worsening shortness breath. Patient states she has had follow-up with pulmonology for this. Patient states that her shortness of breath did not acutely worsened today. At time of evaluation patient states she is at her baseline for her shortness of breath. Patient does have history of COPD and is normally on 3 L of oxygen Related Data Home Medications ?Medication ?Instructions ?Recorded ?Confirmed ?Last Taken ?Type acetaminophen 500 mg tablet (Pain 1,000 mg PO Q12H 06/21/24 06/21/24 06/21/24 History Reliever Extra Strength (acetaminophen)) apixaban 5 mg tablet (Eliquis) 5 mg PO BID 06/21/24 06/21/24 06/21/24 History atorvastatin 40 mg tablet 40 mg PO DAILY 06/21/24 06/21/24 06/21/24 History chlorthalidone 25 mg tablet 25 mg PO DAILY 06/21/24 06/21/24 06/21/24 History diltiazem HCl 240 mg 240 mg PO DAILY 06/21/24 06/21/24 06/21/24 History capsule,extended release 24 hr escitalopram oxalate 20 mg tablet 20 mg PO DAILY 06/21/24 06/21/24 06/21/24 History losartan 50 mg tablet 50 mg PO DAILY 06/21/24 06/21/24 06/21/24 History montelukast 10 mg tablet 10 mg PO QPM 06/21/24 06/21/24 06/20/24 History pantoprazole 40 mg tablet,delayed 40 mg PO Q12H 06/21/24 06/21/24 06/21/24 History release Allergies Allergy/AdvReac Type Severity Reaction Status Date / Time diphenhydramine Allergy Hives Verified 08/06/24 14:43 Penicillins Allergy Hives Verified 08/06/24 14:43 Sulfa (Sulfonamide Allergy Unknown Verified 08/06/24 14:43 Antibiotics) tetanus and diphtheria Allergy Unknown Verified 08/06/24 14:43 toxoids Review of Systems Review of Systems: All systems reviewed & are unremarkable except as noted in HPI and below PMFSH Past Medical History Medical History (Updated 08/06/24 @ 17:52 by Reji Leon MD) Depression Arthritis Chronic diarrhea GERD (gastroesophageal reflux disease) Hypertension Atrial fibrillation COPD (chronic obstructive pulmonary disease) Surgical History Surgical History History of hysterectomy History of tonsillectomy Social History Social History Smoking status: Never smoker Alcohol intake: never Substance use: never Do You Feel Safe in your Home?: Yes Lack of Transportation: No Lack of Food: Never True Current Housing: I Have Housing Concerned About Future Housing: No Difficulty Paying Gas/Electric Bills: No Difficulty Paying for Meds: No Currently Unemployed: No Education: Decline to Answer Difficulty w/ Childcare or Family Care: No Spiritual care concerns: No Exam Narrative: APPEARANCE: Well appearing, no pain, no distress, well-nourished. HEAD: normocephalic, atraumatic. EYES: PERRLA/EOMI, conjunctivae clear. NOSE: Normal no drainage EARS:TMS clear with good light reflex. THROAT: Pharynx clear, no exudate. NECK: Supple. No adenopathy, no masses. RESPIRATORY: Expiratory wheeze CARDIOVASCULAR: Regular rate and rhythm without murmurs rubs or gallops. ABDOMINAL: Soft, nontender, nondistended, normal bowel sounds MUSCULOSKELETAL: Moves all extremities. Strength/ROM intact, No edema, No calf tenderness. NEURO: Alert. Cranial nerves II through XII intact. SKIN: Warm, dry. Normal Color Course Vital Signs Vital signs: Vital Signs Temperature 98.1 F 08/06/24 14:47 Pulse Rate 84 08/06/24 14:47 Respiratory Rate 24 H 08/06/24 14:47 Blood Pressure 118/104 H 08/06/24 14:47 Pulse Oximetry 88 L 08/06/24 14:47 Oxygen Delivery Nasal Cannula 08/06/24 14:47 Oxygen Flow Rate 6 08/06/24 14:47 Temperature 98.1 F 08/06/24 14:47 Pulse Rate 72 08/06/24 18:00 Respiratory Rate 22 H 08/06/24 18:00 Blood Pressure 110/79 08/06/24 18:00 Pulse Oximetry 99 08/06/24 18:00 Oxygen Delivery Nasal Cannula 08/06/24 15:23 Oxygen Flow Rate 3 08/06/24 15:23 Medical Decision Making [facility] Narrative Medical decision making narrative: 71-year-old female presenting emergency department for evaluation for suspected COPD exacerbation. Patient is currently saturating at 100% at her current 3 L of baseline oxygen. Patient did feel improved after the breathing treatment. Patient states she feels she is at her baseline and is requesting discharge home. Patient is afebrile with no leukocytosis and hemoglobin of 10.4. INR 1.3. Patient has no significant acute abnormalities on her CMP. Carbon dioxide of greater than 40 attempted to obtain an ABG but 1st attempt was unsuccessful and patient declined any additional attempts. BNP is mildly elevated at 206. Patient was negative for influenza RSV and for COVID chest x-ray shows no acute cardiopulmonary abnormality. Patient will be started on a short course antibiotics in addition to oral steroids. Patient does have nebulized albuterol at home. Differential Diagnosis Differential Diagnosis: COVID, RSV, influenza, COPD Vital Signs Vital Signs: Vital Signs Temperature 98.1 F 08/06/24 14:47 Pulse Rate 84 08/06/24 14:47 Respiratory Rate 24 H 08/06/24 14:47 Blood Pressure 118/104 H 08/06/24 14:47 Pulse Oximetry 88 L 08/06/24 14:47 Oxygen Delivery Nasal Cannula 08/06/24 14:47 Oxygen Flow Rate 6 08/06/24 14:47 Temperature 98.1 F 08/06/24 14:47 Pulse Rate 72 08/06/24 18:00 Respiratory Rate 22 H 08/06/24 18:00 Blood Pressure 110/79 08/06/24 18:00 Pulse Oximetry 99 08/06/24 18:00 Oxygen Delivery Nasal Cannula 08/06/24 15:23 Oxygen Flow Rate 3 08/06/24 15:23 Lab Data Lab results reviewed: Yes I reviewed the patient's lab results. 08/06/24 15:40 08/06/24 15:40 Labs: Lab Results 08/06/24 Range/Units 15:40 WBC 8.9 (4.5-10.0) K/mm3 RBC 3.68 L (4.2-5.4) M/mm3 Hgb 10.4 L (12.0-15.0) g/dL Hct 35.3 L (37.0-47.0) % MCV 95.9 (80-100) fl MCH 28.3 (26-34) pg MCHC 29.5 L (32-36) g/dl RDW 13.4 (11.5-14.5) % Plt Count 216 (150-375) k/mm3 MPV 9.2 (7.4-10.4) fl Immature Gran % (Auto) 0.8 H (0-0.5) % Neut % (Auto) 86.0 H (45.5-73.1) % Lymph % (Auto) 7.0 L (18.3-44.2) % [place] % (Auto) 5.8 (2.6-8.5) % Eos % (Auto) 0.2 (0-4.4) % Baso % (Auto) 0.2 (0.2-1.2) % Lymph # (Auto) 0.62 L (0.9-3.2) K/mm3 [place] # (Auto) 0.5 (0.1-0.6) K/mm3 Eos # (Auto) 0.0 (0-0.3) K/mm3 Baso # (Auto) 0.0 (0.0-0.1) K/mm3 Abs Immat Gran (auto) 0.07 H (0.00-0.031) K/mm3 Absolute Neuts (auto) 7.6 H (1.3-6.7) K/mm3 Absolute Nucleated RBC 0.000 (0.0-0.012) K/mm3 Nucleated RBC % 0.0 (0.0-0.2) % Platelet Estimate Adequate (Adequate) Anisocytosis 1+ Schistocytes None seen PT 16.0 H (11.1-14.7) Seconds INR 1.3 APTT 30.3 (22.3-36.8) Seconds Sodium 137 (137-145) mmol/L Potassium 3.8 (3.4-5.0) mmol/L Chloride 89 L (98-107) mmol/L Carbon Dioxide > 40 H (22-30) mmol/L Anion Gap (4-12) mmol/L BUN 17 D (7-17) mg/dL Creatinine 0.97 (0.7-1.0) mg/dL Estim Creat Clear Calc 42 ml/min Estimated GFR 56 L (59 - ) Glucose 107 (65-110) mg/dL Calcium 8.7 (8.4-10.2) mg/dL Total Bilirubin 0.6 (0.2-1.3) mg/dL AST 22 (14-36) U/L ALT 15 (6-35) U/L Alkaline Phosphatase 84 (38-126) U/L NT-Pro-B Natriuret Pep 206 H (19.9-100) pg/mL Total Protein 7.0 (6.3-8.2) g/dL Albumin 3.7 (3.5-5.1) g/dL Influenza A (RT-PCR) Negative (Negative) Influenza B (RT-PCR) Negative (Negative) RSV (RT-PCR) Negative (Negative) SARS-CoV-2 RNA (RT-PCR) Negative (Negative) Imaging Data Radiologist's impression: Impressions Chest X-Ray 08/06/24 17:07 IMPRESSION: 1. Mild scarring in left lower lung zone. Discharge Plan Discharge Clinical Impression: COPD exacerbation Patient Disposition: Home, Self-Care Condition: Stable Instructions: Antibiotic Form, COPD (Chronic Obstructive Pulmonary Disease) (ED) Additional Instructions: Antibiotic as directed until completed. Prednisone as directed until completed. Continue to have close follow-up with pulmonology. If you feel you are having any worsening symptoms and please call or return to the emergency department. Patient Language: Estonian Prescriptions: New levofloxacin 750 mg tablet 750 mg PO DAILY 5 Days Qty: 5 0RF prednisone 50 mg tablet 50 mg PO DAILY 5 Days Qty: 5 0RF No Action losartan 50 mg tablet 50 mg PO DAILY diltiazem HCl 240 mg capsule,extended release 24hr 240 mg PO DAILY escitalopram oxalate 20 mg tablet 20 mg PO DAILY atorvastatin 40 mg tablet 40 mg PO DAILY chlorthalidone 25 mg tablet 25 mg PO DAILY Eliquis 5 mg tablet 5 mg PO BID pantoprazole 40 mg tablet,delayed release (DR/EC) 40 mg PO Q12H montelukast 10 mg tablet 10 mg PO QPM acetaminophen [Pain Reliever ES(acetaminophn)] 500 mg tablet 1,000 mg PO Q12H guaifenesin [Mucus Relief ER] 600 mg Tablet Extended Release 12hr 1,200 mg PO Q12HR Qty: 60 0RF Breztri Aerosphere 160-9-4.8 mcg/actuation HFA aerosol inhaler 2 inh inhalation BID Qty: 10.7 0RF doxycycline hyclate 100 mg capsule 100 mg PO BID Qty: 4 0RF albuterol sulfate 90 mcg/actuation HFA aerosol inhaler 2 puff inhalation Q4H PRN (Reason: shortness of breath or wheezing) Qty: 8.5 0RF Follow-up/Referrals: Khurram,MD Anshul [Primary Care Provider] -
[2024-08-06] MEDS: methylPREDNISolone SOD SUCC 125 MG VIAL IV PUSH (17:31)
--- NOTE | 2024-08-06 17:48 | PC.NURSE ---
Pt. states her baseline at this time is standing to get to her WC. She currently has rehab coming to her home. She has been following up with her catalytic converter operator and pcp about her progressively worsening COPD. Since arriving at [facility] today, pt. states she feels much better and that she feels at her baseline. She feels safe to go home and would like to go home tonight. She lives with her who is able to assist her. VSS for entire hospital visit at her baseline of 3L NC. MD Leon notified.
== END 2024-08-06 18:46 | disposition home or self-care (01) ==
PROVIDERS: Emergency Provider Emergency Medicine; PCP Internal Medicine
DX: J44.1 Chronic obstructive pulmonary disease with (acute) exacerbation (principal); Z20.822 Contact with and (suspected) exposure to COVID-19; F32.A Depression, unspecified; M19.90 Unspecified osteoarthritis, unspecified site; K21.9 Gastro-esophageal reflux disease without esophagitis; I10 Essential (primary) hypertension; I48.91 Unspecified atrial fibrillation
CPT/HCPCS: 36415; 36600; 71045; 80053; 83880; 85025; 85610; 85730; 87637; 94640; 96374; 99284; J2919